=== PATIENT | male | born 1955 | race Caucasian/White ===

== ENCOUNTER 2016-09-28 23:32 | Observation (INO) | payer OTHER ==
[2016-09-28] MEDS ORDERED: IPRATROPIUM/ALBUTEROL SULFATE 3 ML NEB NEB ONE ×2 (23:40→23:54)
[2016-09-28] MEDS ORDERED: NORMAL SALINE 10 ML SYRINGE FLUSH IVP PRN (23:51)
[2016-09-28] MEDS ORDERED: Sodium Chloride 0.9% 1,000 ML PRIMARY IV ONE (23:51)
[2016-09-28] MEDS ORDERED: methylPREDNISolone Succ Inj 250 MG in Sodium Chloride 0.9% 100 ML IV ONE (23:53)
[2016-09-28] MEDS ORDERED: LEVALBUTEROL HCL 1.25 MG/3 ML NEB ONE (23:53)
[2016-09-29] MEDS ORDERED: methylPREDNISolone 125 MG/2 ML VIAL ONE (00:06)
[2016-09-29] MEDS ORDERED: Sodium Chloride 0.9% 100 ML IV ONE (00:07)
[2016-09-29 00:19] LABS: BASOPHILS # (AUTO) 0.08 10*3/UL; EOSINOPHILS % (AUTO) 2.9 % (0-8); HEMATOCRIT 42.1 % (42.0-52.0); HEMOGLOBIN 14.3 g/dL (14.0-18.0); IMM GRAN % (AUTO) 1.6 % (0-5); IMM GRAN# (AUTO) 0.13 10*3/UL; LYMPHOCYTES # (AUTO) 1.14 10*3/uL; LYMPHOCYTES % (AUTO) 14.3 % (10-50); MEAN CORPUSCULAR HEMOGLOBIN 28.3 PG (27-31); MEAN PLATELET VOLUME 10.5 FL (7.4-12.2); MONOCYTES # (AUTO) 0.94 10*3/UL (0.3-0.8); MONOCYTES % (AUTO) 11.8 % (5-15); NEUTROPHILS # (AUTO) 5.44 10*3/UL; NEUTROPHILS % (AUTO) 68.4 % (50-80); PLATELET MORPHOLOGY COMMENT NORMAL MORPHOLOGY (NORM); RDW COEFFICIENT OF VARIATION 15.2 % (11.5-14.5); RED BLOOD COUNT 5.05 10^6/uL (4.70-6.10); WHITE BLOOD COUNT 7.96 10^3/uL (4.8-10.8)
[2016-09-29] MEDS ORDERED: methylPREDNISolone Succ Inj 250 MG in Sodium Chloride 0.9% 100 ML IV ONE (00:34)
[2016-09-29 00:37] LABS: ASPARTATE AMINO TRANSFERASE 28 IU/L (21-57); BILIRUBIN,TOTAL 0.6 mg/dL (0.3-1.2); BLOOD UREA NITROGEN 16 mg/dL (7-22); CALCIUM 9.8 mg/dL (8.7-10.7); CHLORIDE 90 meq/L (98-112); CREATININE 0.8 mg/dL (0.70-1.50); EST GLOMERULAR FILTRATION > 60 (>60 ml/min/1.73m(2)); GLUCOSE 103 mg/dL (78-110); POTASSIUM 3.8 meq/L (3.8-5.2); SODIUM 129 meq/L (135-145); TOTAL PROTEIN 7.4 g/dL (6.1-8.0)
[2016-09-29] MEDS ORDERED: IPRATROPIUM/ALBUTEROL SULFATE 3 ML NEB NEB PRN ×2 (00:59→01:45)
[2016-09-29] MEDS ORDERED: LORATADINE 10 MG TABLET PO SCH (01:05)
--- NOTE | 2016-09-29 01:07 | PDOC ---
History and Physical - History of Present Illness History of Present Illness: This very nice 61-year-old gentleman with past medical history significant for asthma and diabetes, morbid obesity he has not been feeling well over the last 2 or 3 days with a lot of postnasal drip which most likely exacerbated his asthma is now improved with the IV steroids to 1 nebs and inhalers he does have some pain in his right frontal sinus which I believe is where things started and I believe he has a acute sinusitis. 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 He needs a bypass surgery but has to lose some weight first according to cardiology Tobacco Use: Never Smoker Substance Use Type: None Alcohol Use: None Medication / Allergies Home Medications: Home Medications Medication Instructions Recorded Confirmed Type Allopurinol 1 tab PO QD tab 04/05/16 09/28/16 History Aspirin 81 mg PO DAILY tab 04/05/16 09/28/16 History Gemfibrozil 600 mg PO QD tab 04/05/16 09/28/16 History Hydrochlorothiazide 1 tab PO BID tab 04/05/16 09/28/16 History Insulin Glargine SoloStar Inj 100 unit BID 04/05/16 09/28/16 History [Lantus Solostar Inj] Lisinopril 1 tab PO DAILY tab 04/05/16 09/28/16 History Lovastatin 20 mg PO DAILY tab 04/05/16 09/28/16 History Metformin HCl 2 tab PO BID tab 04/05/16 09/28/16 History Metoprolol Tartrate 1 tab PO DAILY tab 04/05/16 09/28/16 History Sitagliptin Phosphate [Januvia] 1 tab PO DAILY tab 04/05/16 09/28/16 History Ciclopirox/Nail Lacquer Removr 1 each TOPICAL DAILY #1 box 06/20/16 09/28/16 Clinic [Cnl 8 Nail Kit] Allergies/Adverse Reactions: Allergies Allergy/AdvReac Type Severity Reaction Status Date / Time No Known Drug Allergies Allergy NOT Verified 09/29/16 06:28 APPLICABLE Review of Systems - Review of Systems All Systems: Reviewed & No Additional Complaints Except as Stated - Respiratory Respiratory: REPORTS: Cough, Wheezing - Cardiovascular Cardiovascular: DENIES: Negative System Review, Chest Pain, Edema, Syncope, Palpitations, Orthopnea, Paroxysmal Nocturnal Dyspnea, Other, See HPI - Gastrointestinal Gastrointestinal / Abdominal: DENIES: Negative System Review, Nausea, Vomiting, Diarrhea, Constipation, Abdominal Pain, Bloody Stool, Poor Appetite, Heartburn, Regurgitation, Bloating, Lactose Intolerance, Melena, Bright Red Blood Per Rectum, Other, See HPI - Genitourinary Genitourinary: DENIES: Negative System Review, Pain, Burning, Hematuria, Incontinence, Urgency, Hesitant Stream, Decreased Stream, Nocutria, Discharge, Sexual Dyfunction, Other, See HPI Exam - Vitals Vital Signs: Vital Signs Temperature 96.3 F Temperature Source Temporal Artery Scan Pulse Rate [Pulse Oximeter] 76 Respiratory Rate 22 Blood Pressure [Left Arm] 130/67 Pulse Ox 94 Oxygen Delivery Method Room Air Height 5 ft 11 in Weight 163.293 kg - General General Appearance: POSITIVE: No Acute Distress, Cooperative - Head Head Exam: POSITIVE: Normal Inspection, Normocephalic, Atraumatic - Respiratory Respiratory Exam: POSITIVE: Clear to Auscultation - Bilaterally, Decreased Breath Sounds - Cardiovascular Cardiovascular Exam: POSITIVE: RRR, No Murmur, No Clicks - GI/Abdominal GI/Abdominal Exam: POSITIVE: Normal Bowel Sounds, Non Distended, Soft - Extremities Extremities Exam: POSITIVE: No Clubbing Present, No Edema Present - Neurological Neurological Exam: POSITIVE: Alert, Oriented x 3, CN II-XII Intact, No Facial Droop, Speech Intact / Clear - Psychiatric Psychiatric Exam: POSITIVE: Normal Affect, Normal Mood Results - Labs CBC and BMP: 09/29/16 11:15 09/29/16 11:15 Labs - Last 24 Hours: Laboratory Results 09/29/16 Range/Units 00:10 WBC 7.96 (4.8-10.8) 10^3/uL RBC 5.05 (4.70-6.10) 10^6/uL Hgb 14.3 (14.0-18.0) g/dL Hct 42.1 (42.0-52.0) % MCV 83.4 (80-90) FL MCH 28.3 (27-31) PG MCHC 34.0 (33-37) g/dL RDW Std Deviation 46.0 (39-50) fL RDW Coeff of [place] 15.2 H (11.5-14.5) % Plt Count 224 (140-350) 10*3/uL MPV 10.5 (7.4-12.2) FL Immature Gran % (Auto) 1.6 (0-5) % Neut % (Auto) 68.4 (50-80) % Lymph % (Auto) 14.3 (10-50) % Piatt % (Auto) 11.8 (5-15) % Eos % (Auto) 2.9 (0-8) % Baso % (Auto) 1.0 (0-1) % Immature Gran # (Auto) 0.13 10*3/UL Neut # (Auto) 5.44 10*3/UL Lymph # (Auto) 1.14 10*3/uL Piatt # (Auto) 0.94 H (0.3-0.8) 10*3/UL Eos # (Auto) 0.23 10*3/UL Baso # (Auto) 0.08 10*3/UL WBC Morphology Comment Normal morphology (NORM) Plt Morphology Comment Normal morphology (NORM) RBC Morph Comment Normal morphology (NORM) D-Dimer 0.53 (0.00-0.59) mg/L Sodium 129 L (135-145) meq/L Potassium 3.8 (3.8-5.2) meq/L Chloride 90 L (98-112) meq/L Carbon Dioxide 24 (23-33) meq/L Anion Gap 15 (5-20) BUN 16 (7-22) mg/dL Creatinine 0.8 (0.70-1.50) mg/dL Estimated GFR > 60 (>60 ml/min/1.73m(2)) BUN/Creatinine Ratio 20.00 (6-20) Glucose 103 (78-110) mg/dL Calculated Osmolality 268.0 (267-292) mOsm/kg Calcium 9.8 (8.7-10.7) mg/dL Total Bilirubin 0.6 (0.3-1.2) mg/dL AST 28 (21-57) IU/L ALT 40 (21-72) IU/L Alkaline Phosphatase 83 (38-126) IU/L NT-Pro-B Natriuret Pep 255 H (0-125) PG/ML Total Protein 7.4 (6.1-8.0) g/dL Albumin 4.4 (3.5-4.8) g/dL Globulin 3.0 (2.50-4.10) g/dL Albumin/Globulin Ratio 1.40 (1.3-2.0) mg/g Assessment and Plan - Patient Problems (1) Asthma exacerbation Current Visit: Yes Status: Acute Comment: Patient has already received to 50 of Solu-Medrol and 2 DuoNeb treatments improving according to ER doc will be admitted for further observation I will add Advair 2 5050, loratadine 10 mg, methylprednisolone 60 IV every 6 (2) Diabetes Current Visit: Yes Status: Acute Comment: Continue metformin and Januvia (3) Hyponatremia Current Visit: Yes Status: Acute Comment: Operative record thiazide hydrate with normal saline with 20 of K at 125 an hour (4) Obesity Current Visit: Yes Status: Acute Comment: Low-carb diet (5) Hypertension Current Visit: Yes Status: Acute Comment: Continue usual medication
[2016-09-29 01:09] LABS: VENOUS HCO3 25.9 mmol/L (22-26)
[2016-09-29] MEDS ORDERED: methylPREDNISolone 125 MG/2 ML VIAL IVP SCH (01:15)
[2016-09-29] MEDS ORDERED: HEPARIN 5000 UNIT/1 ML SUBCUT SCH (02:00)
[2016-09-29] MEDS ORDERED: NORMAL SALINE 10 ML SYRINGE FLUSH IVP PRN ×2 (02:01→02:04)
[2016-09-29] MEDS ORDERED: ALBUTEROL SULFATE 5 MG/ML-20 ML BOTTLE NEB PRN (02:10)
[2016-09-29] MEDS ORDERED: diphenhydrAMINE 25 MG CAPSULE PO ONE (02:11)
[2016-09-29] MEDS: BENZONATATE 200 MG CAPSULE PO PRN ×3 (02:36→21:28)
[2016-09-29] MEDS: GUAIFENESIN/CODEINE SYRUP 100 MG/ 10 MG/ 5 ML UD CUP PO PRN ×3 (03:49→16:31)
[2016-09-29] MEDS: methylPREDNISolone 125 MG/2 ML VIAL IVP SCH ×3 (05:39→17:00)
--- NOTE | 2016-09-29 05:54 | PDOC ---
Dyspnea HPI - General Chief Complaint: Cough / URI Stated Complaint: Cough/Wheeze Date Seen by Provider: 09/28/16 Time Seen by Provider: 23:35 Source: POSITIVE: Patient Exam Limitations: POSITIVE: No limitations Treatment Prior to Arrival: REPORTS: Other (Albuterol MDI) Nurse's Notes Reviewed & Considered: Yes - History of Present Illness Initial Comments: The patient is a 61 year old male. He presents to the emergency room complaining of cough and wheezing this evening. He states that he has a history of asthma. He states he has had a 2-3 day history of URI symptoms, including minimally productive cough and postnasal discharge. Patient states he has a history of coronary artery disease, morbid obesity, asthma and insulin- dependent diabetes mellitus, for which he takes Lantus. He uses a Proair inhaler on a when necessary basis. No fevers or chills. No chest pain. He states he has been advised to have a coronary artery bypass after he loses 30 pounds. His present weight is 360 pounds. Body Location Affected: REPORTS: Chest Timing: REPORTS: Gradual, Getting Worse Duration: >24 hours (2 days) Severity: Moderate Quality: REPORTS: Other (Patient denies any pain anywhere) Initiating Event: REPORTS: Upper Respiratory Illness Context: REPORTS: Exertion Exacerbated By: REPORTS: Exertion, Coughing Associated Symptoms: DENIES: Fever, Chills, Sweating, Chest Pain, Chest Discomfort, Left Chest, Right Chest, Central Chest, Chest Heaviness, Chest Tightness, Painful Breathing, Radiation to Back, Radiation to Jaw, Radiation to Arm, Bloody Cough, Productive Cough, Heart Racing, Leg Pain, Calf Pain, Ankle Swelling, Leg Swelling, Dizziness, Light-Headedness, Anxiety, Tingling - Hands, Tingling - Face, Muscle Spasms - Hands, Muscle Spasms - Feet Similar Symptoms Previously: Yes Recently seen/treated/hospitalized: No Any Prior Injuries Related to Current Complaint?: No - Patient Home Medications Home Medications: Home Medications Allopurinol 1 tab PO QD tab 04/05/16 Aspirin 81 mg PO DAILY tab 04/05/16 Gemfibrozil 600 mg PO QD tab 04/05/16 Hydrochlorothiazide 1 tab PO BID tab 04/05/16 Insulin Glargine SoloStar Inj [Lantus Solostar Inj] 100 unit BID 04/05/16 Lisinopril 1 tab PO DAILY tab 04/05/16 Lovastatin 20 mg PO DAILY tab 04/05/16 Metformin HCl 2 tab PO BID tab 04/05/16 Metoprolol Tartrate 1 tab PO DAILY tab 04/05/16 Sitagliptin Phosphate [Januvia] 1 tab PO DAILY tab 04/05/16 Ciclopirox/Nail Lacquer Removr [Cnl 8 Nail Kit] 1 each TOPICAL DAILY #1 box 10/31 - Patient Allergies Allergies/Adverse Reactions: Allergies Allergy/AdvReac Type Severity Reaction Status Date / Time No Known Drug Allergies Allergy NOT Verified 09/29/16 01:46 APPLICABLE Past Medical History - heen HEENT History: Denies History Cardiovascular History: Hypertension, Other (please comment) Additional Cardiovasular History: HEART BLOCKABLE, WANT TO DO SURGERY BUT NEEDS TO LOSE 30 POUNDS. Respiratory History: Asthma Gastrointestinal History: Denies History Genitourinary History: Denies History Endocrine History: Denies History Musculoskeletal History: Denies History Neurological History: Denies History Blood Disorders: Denies History Psychiatric History: Denies History Male Reproductive History: Denies History Cancer History: Denies History In Past Year Been Physically Harmed or Verbally Threatened: No History of MDRO: Yes Type of MDRO: MRSA Tobacco Use: Never Smoker Alcohol Use: None Substance Use Type: None Previous Surgical History: No Type / Date of Surgery: APPENDIX. EXPLORATORY TESTICLES Significant Family History: No pertinent family hx Past Medical History Reviewed: Reviewed - No Changes ROS - Limitations ROS Limitations: No Limitations Constitution: REPORTS: Denies Symptoms Cardiovascular: REPORTS: Denies Cardiac Symptoms Respiratory: REPORTS: Cough Non Productive, Shortness Of Breath, Wheezing Neurological: REPORTS: Denies Neuro Symptoms Gastrointestinal: REPORTS: Denies GI Symptoms Endocrine: REPORTS: Denies Symptoms Musculoskeletal: REPORTS: Denies MS Symptoms Genitourinary: REPORTS: Denies Symptoms Eyes: REPORTS: Denies Symptoms ENT: REPORTS: Denies Symptoms Skin: REPORTS: Denies Skin Symptoms Lympathic: REPORTS: Denies Lympathic Symptoms Immunologic: POSITIVE: Denies Symptoms Psychiatric: POSITIVE: Denies Psych Symptoms Dyspnea Physical Exam - General Appearance General Appearance: REPORTS: Alert, Cooperative, No Evidence of Trauma, Moderate Distress (Due to wheezing and dyspnea), Other (Morbidly obese) - HEENT HEENT: POSITIVE: Head Inspection Nml, Eyes Inspection Nml, Ears Inspection Nml, Nose Inspection Nml, Oral/Dental Inspect. Nml, Pharynx Inspect. Nml, PERRL, EOMI - Neck Neck: REPORTS: Normal Inspection, No Carotid Bruit - Respiratory Respiratory: REPORTS: No Pleuritic Chest Pain, Speaks Full Sentences, No Pain on Inspiration, Wheezes, Prolonged Expirations. DENIES: Breath Sounds Normal ( Diffuse wheezing), Respiratory Distress (Moderate), Fatigue, Rales, Rhonchi, Accessory Muscle Use, Retractions, Splinting, Dull on Percussion, Decreased Air Movement, Chest Wall Tenderness, Speaks Broken Sentences, Stridor, Respiratory Failure - Cardiovascular Cardiovascular: REPORTS: Regular Rate and Rhythm, Heart Sounds Normal, Equal Pulses, Strong Pulses, No Murmur, No Gallop, No Friction Rub, No JVD Peripheral Pulses: Radial (R): 2+, Radial (L): 2+ - Abdomen Abdomen: Soft: (All Quadrants), Normal Bowel Sounds: (All Quadrants), Denies Tenderness: (All Quadrants), No Splenomegaly: (All Quadrants), No Hepatomegaly: (All Quadrants), No Guarding: (All Quadrants), No Rebound: (All Quadrants), No Palpable Pulse: (All Quadrants), No Palpabale Mass: (All Quadrants), No Distention: (All Quadrants), No Rigidity: (All Quadrants) - Skin Skin: REPORTS: Intact, Normal For Race, Warm, Dry, No Rash - Extremities Extremity: Non-Tender: (All Extremities), Normal ROM: (All Extremities), Normal Inspection: (All Extremities) - Neurological / Psychological Neurological: POSITIVE: Oriented X3, veneer taper Normal As Tested, Motor Normal, Sensation Normal, 5, 6 Dyspnea Progress - Results Reviewed by me Xrays/CTs/US Reviewed by me: Yes Discussed with Radiologist: No Radiology Findings: No cardiomegaly or definite infiltrates seen by me Lab Results Reviewed: Yes Lab Results:: Laboratory Results 09/28/16 09/29/16 Range/Units 23:54 00:10 WBC 7.96 (4.8-10.8) 10^3/uL RBC 5.05 (4.70-6.10) 10^6/uL Hgb 14.3 (14.0-18.0) g/dL Hct 42.1 (42.0-52.0) % MCV 83.4 (80-90) FL MCH 28.3 (27-31) PG MCHC 34.0 (33-37) g/dL RDW Std Deviation 46.0 (39-50) fL RDW Coeff of [place] 15.2 H (11.5-14.5) % Plt Count 224 (140-350) 10*3/uL MPV 10.5 (7.4-12.2) FL Immature Gran % (Auto) 1.6 (0-5) % Neut % (Auto) 68.4 (50-80) % Lymph % (Auto) 14.3 (10-50) % Hawkins % (Auto) 11.8 (5-15) % Eos % (Auto) 2.9 (0-8) % Baso % (Auto) 1.0 (0-1) % Immature Gran # (Auto) 0.13 10*3/UL Neut # (Auto) 5.44 10*3/UL Lymph # (Auto) 1.14 10*3/uL Hawkins # (Auto) 0.94 H (0.3-0.8) 10*3/UL Eos # (Auto) 0.23 10*3/UL Baso # (Auto) 0.08 10*3/UL WBC Morphology Comment Normal morphology (NORM) Plt Morphology Comment Normal morphology (NORM) RBC Morph Comment Normal morphology (NORM) D-Dimer 0.53 (0.00-0.59) mg/L VBG pH 7.45 H (7.32-7.42) VBG pCO2 36.8 L (45-55) mmHg VBG HCO3 25.9 (22-26) mmol/L VBG Base Excess 2 (-2-2) MMOL/L Sodium 129 L (135-145) meq/L Potassium 3.8 (3.8-5.2) meq/L Chloride 90 L (98-112) meq/L Carbon Dioxide 24 (23-33) meq/L Anion Gap 15 (5-20) BUN 16 (7-22) mg/dL Creatinine 0.8 (0.70-1.50) mg/dL Estimated GFR > 60 (>60 ml/min/1.73m(2)) BUN/Creatinine Ratio 20.00 (6-20) Glucose 103 (78-110) mg/dL Calculated Osmolality 268.0 (267-292) mOsm/kg Calcium 9.8 (8.7-10.7) mg/dL Total Bilirubin 0.6 (0.3-1.2) mg/dL AST 28 (21-57) IU/L ALT 40 (21-72) IU/L Alkaline Phosphatase 83 (38-126) IU/L NT-Pro-B Natriuret Pep 255 H (0-125) PG/ML Total Protein 7.4 (6.1-8.0) g/dL Albumin 4.4 (3.5-4.8) g/dL Globulin 3.0 (2.50-4.10) g/dL Albumin/Globulin Ratio 1.40 (1.3-2.0) mg/g EKG Interpreted/Reviewed By Me:: Yes (normal) EKG Interpretation:: POSITIVE: Normal Sinus Rhythm, Normal Rate, Normal Intervals, Normal Warrior, Normal QRS, Normal ST/T - Patient's Progress Pain Medication Addressed: POSITIVE: Not Applicable School/Work Release Addressed: POSITIVE: Not Applicable Re-Examine Time: 00:00 Re-Examine Comment: Patient given DuoNeb nebulizer treatment with some improvement. Oxygen saturation 94% on 3 L of oxygen by nasal cannula Re-Examine Time:: 00:50 Re-Examine Comment: Patient given 250 mg of Solu-Medrol IV and another 2 Xopenex treatments. Wheezing much less and patient maintaining oxygen saturations well. Patient feels better. Case discussed with Dr. Soot, hospitalist. Status: POSITIVE: Improved, Re-Examined Air Movement: POSITIVE: Fair - Consult Consult (If Yes, Name of Consulting MD & Time Called): Yes (Dr. Escobar, hospitalist, [id number]) Consulting MD will see pt:: POSITIVE: [facility] [place] Admit Counseled: POSITIVE: Patient, RE: Lab Results, RE: Radiology Results, RE: DX, RE : Need for F/U Patient Care Time - Estimated PCT Patient Care Time (In Minutes): 40 Vital Signs - Recent Vital Signs Vital Signs: Vital Signs (Last 8 hours) Temp Pulse Pulse Resp BP BP Pulse Ox 09/29/16 03:34 93 09/29/16 03:06 71 96 09/29/16 02:47 97.1 F 73 20 149/84 97 09/29/16 01:46 22 09/29/16 01:35 97.0 F 70 22 117/59 96 09/29/16 01:20 94 09/28/16 23:32 96.3 F L 76 22 130/67 94 - VS Reviewed Vital Signs Reviewed: Yes Discharge Clinical Impression: Asthma, Diabetes Discharge Disposition: Admit to Inpatient Condition: Stable Date Decision to Admit to Inpatient: 09/29/16 Time Decision to Admit to Inpatient: 00:50
[2016-09-29] MEDS ORDERED: FLUTICASONE/SALMETEROL 250/50 UD INHALER INH SCH (07:00)
[2016-09-29] MEDS: IPRATROPIUM/ALBUTEROL SULFATE 3 ML NEB NEB SCH ×3 (07:10→19:11)
[2016-09-29] MEDS: metFORMIN 500 MG TABLET PO SCH ×2 (07:19→16:31)
[2016-09-29] MEDS: FLUTICASONE/SALMETEROL 250/50 UD INHALER INH SCH ×2 (07:26→19:14)
[2016-09-29] MEDS: ASPIRIN 81 MG (BABY) CHEWABLE TABLET PO SCH (09:00)
[2016-09-29] MEDS: LISINOPRIL 10 MG TABLET PO SCH (09:00)
[2016-09-29] MEDS: LORATADINE 10 MG TABLET PO SCH (09:00)
[2016-09-29] MEDS: ALLOPURINOL 300 MG TABLET PO SCH (09:00)
[2016-09-29] MEDS ORDERED: PNEUMOCOCCAL 23 VACCINE 25 MCG/0.5 ML VIAL IM SCH (09:00)
[2016-09-29] MEDS: HEPARIN 5000 UNIT/1 ML SUBCUT SCH ×2 (09:00→16:32)
[2016-09-29] MEDS: sitaGLIPtin Tab 100 MG TAB PO SCH (09:00)
[2016-09-29] MEDS: LOVASTATIN 20 MG PO SCH (09:06)
[2016-09-29 11:42] LABS: BASOPHILS # (AUTO) 0.01 10*3/UL; BASOPHILS % (AUTO) 0.2 % (0-1); EOSINOPHILS % (AUTO) 0.2 % (0-8); HEMATOCRIT 39.5 % (42.0-52.0); HEMOGLOBIN 13.6 g/dL (14.0-18.0); IMM GRAN# (AUTO) 0.06 10*3/UL; LYMPHOCYTES # (AUTO) 0.56 10*3/uL; MEAN CORPUSCULAR HEMOGLOBIN 28.5 PG (27-31); MEAN CORPUSCULAR HGB CONC 34.4 g/dL (33-37); MEAN PLATELET VOLUME 10.8 FL (7.4-12.2); MONOCYTES # (AUTO) 0.11 10*3/UL (0.3-0.8); MONOCYTES % (AUTO) 1.8 % (5-15); NEUTROPHILS # (AUTO) 5.44 10*3/UL; NEUTROPHILS % (AUTO) 87.8 % (50-80); RDW COEFFICIENT OF VARIATION 14.9 % (11.5-14.5); RED BLOOD COUNT 4.78 10^6/uL (4.70-6.10); WHITE BLOOD COUNT 6.19 10^3/uL (4.8-10.8)
[2016-09-29 11:55] LABS: ASPARTATE AMINO TRANSFERASE 25 IU/L (21-57); BILIRUBIN,TOTAL 0.3 mg/dL (0.3-1.2); BLOOD UREA NITROGEN 14 mg/dL (7-22); CALCIUM 9.1 mg/dL (8.7-10.7); CHLORIDE 91 meq/L (98-112); CREATININE 0.7 mg/dL (0.70-1.50); EST GLOMERULAR FILTRATION > 60 (>60 ml/min/1.73m(2)); GLUCOSE 240 mg/dL (78-110); MAGNESIUM 1.7 mg/dL (1.6-2.4); POTASSIUM 3.7 meq/L (3.8-5.2); SODIUM 128 meq/L (135-145)
[2016-09-29 12:10] LABS: PLATELET MORPHOLOGY COMMENT NORMAL MORPHOLOGY (NORM)
[2016-09-29] MEDS ORDERED: Metoprolol TARTRATE Tab 50 MG TAB PO SCH (12:30)
[2016-09-29] MEDS: Levofloxacin 750mg (Premix) 750 MG in Dextrose 1 BAG IV SCH (13:21)
--- NOTE | 2016-09-29 13:30 | EKG ---
[address] [address] Measurements Intervals [place] Rate: 69 P: 267 MO: 192 QRS: 30 QRSD: 78 T: 43 QT: 384 QTc: 402 Interpretive Statements SINUS RHYTHM No previous ECG available for comparison Electronically Signed On 09-30-16 16:08:31 [facility] by Arnaldo Mason [email or web address]
--- NOTE | 2016-09-29 15:18 | EKG ---
[address] [address] Measurements Intervals [place] Rate: 85 P: [place]: 0 QRS: 48 QRSD: 92 T: 50 QT: 393 QTc: 435 Interpretive Statements SINUS RHYTHM NORMAL ECG Electronically Signed On 09-30-16 16:06:08 [facility] by Arnaldo Mason [email or web address]
[2016-09-29] MEDS: LORazepam 2 MG/1 ML VIAL IVP PRN ×4 (16:31→23:59)
[2016-09-29] MEDS ORDERED: Zolpidem Tab 5 MG TAB PO PRN (19:37)
[2016-09-29] MEDS ORDERED: Insulin Glargine SoloStar Inj 100 UNIT/ML INSULN.PEN SUBCUT SCH (21:00)
[2016-09-29] MEDS: Metoprolol TARTRATE Tab 50 MG TAB PO SCH (21:28)
[2016-09-29] MEDS ORDERED: GABAPENTIN 100 MG CAPSULE PO SCH (21:30)
[2016-09-29] MEDS ORDERED: ALBUTEROL SULFATE 2.5 MG/3 ML NEB PRN (22:24)
[2016-09-29] MEDS ORDERED: ALBUTEROL SULFATE 2.5 MG/3 ML NEB ONE (22:30)
[2016-09-30] MEDS: methylPREDNISolone 125 MG/2 ML VIAL IVP SCH ×2 (00:30→05:49)
[2016-09-30] MEDS: HEPARIN 5000 UNIT/1 ML SUBCUT SCH ×3 (00:30→16:55)
[2016-09-30] MEDS: IPRATROPIUM/ALBUTEROL SULFATE 3 ML NEB NEB SCH ×4 (01:46→18:45)
[2016-09-30] MEDS: ASPIRIN 81 MG (BABY) CHEWABLE TABLET PO SCH (07:23)
[2016-09-30] MEDS: metFORMIN 500 MG TABLET PO SCH (07:23)
[2016-09-30 07:47] VITALS: RESP 20
[2016-09-30] MEDS: FLUTICASONE/SALMETEROL 250/50 UD INHALER INH SCH ×2 (07:52→18:45)
[2016-09-30] MEDS: LISINOPRIL 10 MG TABLET PO SCH (08:20)
[2016-09-30] MEDS: Metoprolol TARTRATE Tab 50 MG TAB PO SCH (08:20)
[2016-09-30] MEDS: sitaGLIPtin Tab 100 MG TAB PO SCH (08:20)
[2016-09-30] MEDS: ALLOPURINOL 300 MG TABLET PO SCH (08:20)
[2016-09-30] MEDS: Levofloxacin 750mg (Premix) 750 MG in Dextrose 1 BAG IV SCH (08:21)
[2016-09-30] MEDS: LORATADINE 10 MG TABLET PO SCH (08:21)
--- NOTE | 2016-09-30 08:26 | DI ---
XR CXR 2VW PA/LAT,09/28/2016 11:54 PM: Clinical History: Cough and dyspnea Previous Exam: None at this facility. Findings: PA and lateral views of the chest are obtained, and demonstrate mild flattening of the hemidiaphragms bilaterally consistent with COPD. There is no fracture. There is a normal cardiac shadow. Impression: No acute disease.
[2016-09-30] MEDS ORDERED: FUROSEMIDE 10 MG/1 ML - 4 ML IVP ONE (08:56)
[2016-09-30] MEDS ORDERED: predniSONE Tab 20 MG TAB PO SCH (09:00)
[2016-09-30] MEDS ORDERED: Levofloxacin 750mg (Premix) 750 MG in Dextrose 1 BAG IV SCH (09:00)
[2016-09-30] MEDS ORDERED: predniSONE Tab 10 MG, predniSONE Tab 20 MG PO SCH ×2 (09:15)
[2016-09-30] MEDS: LOVASTATIN 20 MG PO SCH (09:55)
[2016-09-30 10:58] LABS: BASOPHILS # (AUTO) 0.02 10*3/UL; BASOPHILS % (AUTO) 0.1 % (0-1); EOSINOPHILS % (AUTO) 0.1 % (0-8); HEMOGLOBIN 13.6 g/dL (14.0-18.0); IMM GRAN % (AUTO) 0.8 % (0-5); IMM GRAN# (AUTO) 0.11 10*3/UL; LYMPHOCYTES # (AUTO) 0.83 10*3/uL; MEAN CORPUSCULAR HEMOGLOBIN 28.5 PG (27-31); MEAN PLATELET VOLUME 10.3 FL (7.4-12.2); MONOCYTES # (AUTO) 0.65 10*3/UL (0.3-0.8); MONOCYTES % (AUTO) 4.7 % (5-15); NEUTROPHILS # (AUTO) 12.26 10*3/UL; NEUTROPHILS % (AUTO) 88.3 % (50-80); RED BLOOD COUNT 4.77 10^6/uL (4.70-6.10); WHITE BLOOD COUNT 13.88 10^3/uL (4.8-10.8)
[2016-09-30 11:03] LABS: PLATELET MORPHOLOGY COMMENT NORMAL MORPHOLOGY (NORM)
[2016-09-30 11:17] LABS: ASPARTATE AMINO TRANSFERASE 33 IU/L (21-57); BILIRUBIN,TOTAL 0.3 mg/dL (0.3-1.2); BLOOD UREA NITROGEN 18 mg/dL (7-22); BUN/CREATININE RATIO 25.71 (6-20); CHLORIDE 94 meq/L (98-112); CREATININE 0.7 mg/dL (0.70-1.50); EST GLOMERULAR FILTRATION > 60 (>60 ml/min/1.73m(2)); GLUCOSE 321 mg/dL (78-110); SODIUM 130 meq/L (135-145); TOTAL PROTEIN 7.2 g/dL (6.1-8.0)
--- NOTE | 2016-09-30 12:35 | DCSUMMARY ---
Hospitalization Summary Hospital Course: Final Discharge Diagnosis: Current Visit Problems Problem Status Priority Diagnosed Code Asthma Acute J45.909 Asthma exacerbation Acute J45.901 Diabetes Acute E11.9 Hypertension Acute I10 Hyponatremia Acute E87.1 Obesity Acute E66.9 Diagnostic Data, Laboratory Data, and Procedures of Signifigance: Laboratory Results 09/28/16 09/29/16 09/29/16 Range/Units 23:54 00:10 11:15 WBC 7.96 6.19 (4.8-10.8) 10^3/uL RBC 5.05 4.78 (4.70-6.10) 10^6/uL Hgb 14.3 13.6 L (14.0-18.0) g/dL Hct 42.1 39.5 L (42.0-52.0) % MCV 83.4 82.6 (80-90) FL MCH 28.3 28.5 (27-31) PG MCHC 34.0 34.4 (33-37) g/dL RDW Std Deviation 46.0 44.6 (39-50) fL RDW Coeff of [place] 15.2 H 14.9 H (11.5-14.5) % Plt Count 224 213 (140-350) 10*3/uL MPV 10.5 10.8 (7.4-12.2) FL Immature Gran % (Auto) 1.6 1.0 (0-5) % Neut % (Auto) 68.4 87.8 H (50-80) % Lymph % (Auto) 14.3 9.0 L (10-50) % [place] % (Auto) 11.8 1.8 L (5-15) % Eos % (Auto) 2.9 0.2 (0-8) % Baso % (Auto) 1.0 0.2 (0-1) % Immature Gran # (Auto) 0.13 0.06 10*3/UL Neut # (Auto) 5.44 5.44 10*3/UL Lymph # (Auto) 1.14 0.56 10*3/uL [place] # (Auto) 0.94 H 0.11 L (0.3-0.8) 10*3/UL Eos # (Auto) 0.23 0.01 10*3/UL Baso # (Auto) 0.08 0.01 10*3/UL WBC Morphology Comment Normal morphology Normal morphology (NORM) Plt Morphology Comment Normal morphology Normal morphology (NORM) RBC Morph Comment Normal morphology Normal morphology (NORM) D-Dimer 0.53 (0.00-0.59) mg/L VBG pH 7.45 H (7.32-7.42) VBG pCO2 36.8 L (45-55) mmHg VBG HCO3 25.9 (22-26) mmol/L VBG Base Excess 2 (-2-2) MMOL/L Sodium 129 L 128 L (135-145) meq/L Potassium 3.8 3.7 L (3.8-5.2) meq/L Chloride 90 L 91 L (98-112) meq/L Carbon Dioxide 24 23 (23-33) meq/L Anion Gap 15 14 (5-20) BUN 16 14 (7-22) mg/dL Creatinine 0.8 0.7 (0.70-1.50) mg/dL Estimated GFR > 60 > 60 (>60 ml/min/1.73m(2)) BUN/Creatinine Ratio 20.00 20.00 (6-20) Glucose 103 240 H (78-110) mg/dL Calculated Osmolality 268.0 274.0 (267-292) mOsm/kg Calcium 9.8 9.1 (8.7-10.7) mg/dL Magnesium 1.7 (1.6-2.4) mg/dL Total Bilirubin 0.6 0.3 (0.3-1.2) mg/dL AST 28 25 (21-57) IU/L ALT 40 38 (21-72) IU/L Alkaline Phosphatase 83 76 (38-126) IU/L Troponin I (< 0.040) ng/mL NT-Pro-B Natriuret Pep 255 H (0-125) PG/ML Total Protein 7.4 7.0 (6.1-8.0) g/dL Albumin 4.4 4.1 (3.5-4.8) g/dL Globulin 3.0 2.9 (2.50-4.10) g/dL Albumin/Globulin Ratio 1.40 1.40 (1.3-2.0) mg/g 09/29/16 09/30/16 Range/Units 14:00 10:00 WBC 13.88 H (4.8-10.8) 10^3/uL RBC 4.77 (4.70-6.10) 10^6/uL Hgb 13.6 L (14.0-18.0) g/dL Hct 40.0 L (42.0-52.0) % MCV 83.9 (80-90) FL MCH 28.5 (27-31) PG MCHC 34.0 (33-37) g/dL RDW Std Deviation 45.4 (39-50) fL RDW Coeff of [place] 15.0 H (11.5-14.5) % Plt Count 263 (140-350) 10*3/uL MPV 10.3 (7.4-12.2) FL Immature Gran % (Auto) 0.8 (0-5) % Neut % (Auto) 88.3 H (50-80) % Lymph % (Auto) 6.0 L (10-50) % [place] % (Auto) 4.7 L (5-15) % Eos % (Auto) 0.1 (0-8) % Baso % (Auto) 0.1 (0-1) % Immature Gran # (Auto) 0.11 10*3/UL Neut # (Auto) 12.26 10*3/UL Lymph # (Auto) 0.83 10*3/uL [place] # (Auto) 0.65 (0.3-0.8) 10*3/UL Eos # (Auto) 0.01 10*3/UL Baso # (Auto) 0.02 10*3/UL WBC Morphology Comment Normal morphology (NORM) Plt Morphology Comment Normal morphology (NORM) RBC Morph Comment Normal morphology (NORM) D-Dimer (0.00-0.59) mg/L VBG pH (7.32-7.42) VBG pCO2 (45-55) mmHg VBG HCO3 (22-26) mmol/L VBG Base Excess (-2-2) MMOL/L Sodium 130 L (135-145) meq/L Potassium 4.0 (3.8-5.2) meq/L Chloride 94 L (98-112) meq/L Carbon Dioxide 19 L (23-33) meq/L Anion Gap 17 (5-20) BUN 18 (7-22) mg/dL Creatinine 0.7 (0.70-1.50) mg/dL Estimated GFR > 60 (>60 ml/min/1.73m(2)) BUN/Creatinine Ratio 25.71 H (6-20) Glucose 321 H (78-110) mg/dL Calculated Osmolality 283.0 (267-292) mOsm/kg Calcium 9.0 (8.7-10.7) mg/dL Magnesium (1.6-2.4) mg/dL Total Bilirubin 0.3 (0.3-1.2) mg/dL AST 33 (21-57) IU/L ALT 25 (21-72) IU/L Alkaline Phosphatase 67 (38-126) IU/L Troponin I < 0.012 (< 0.040) ng/mL NT-Pro-B Natriuret Pep (0-125) PG/ML Total Protein 7.2 (6.1-8.0) g/dL Albumin 4.2 (3.5-4.8) g/dL Globulin 3.0 (2.50-4.10) g/dL Albumin/Globulin Ratio 1.40 (1.3-2.0) mg/g History and Physical pertinent to Admission: Course of Hospitalization: This very nice 61-year-old gentleman who was seen in the ER for asthma exacerbation and subsequently admitted the because his wheezings was not totally resolved in the ER. After further evaluation the patient did not have any pneumonia and was found to have a sinus infection on physical exam on his met right maxillary most likely this was causing the postnasal drip which she confirmed over the 2-3 days before coming into the ER which most likely triggered his asthma exacerbation this resolved with the respiratory treatments and steroids is also being treated with 750 levofloxacin for a sinus infection patient overall is improved from the acute issues that he was admitted for that he has other multiple other comorbidities including diabetes coronary artery disease he stated that the cardiology and told him he needs bypass but needs to lose about 30 pounds before he does have surgery. 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 He will be finishing a short tapering dose of steroids and a 5 day he more course of by mouth Levaquin patient understands and agrees. His white count and most likely is from steroids . I told the patient that his sugars might be up a little he might had to adjust may be a few more units of insulin he said he has done this before and he knows how to do it. I also called Zen[facility] Saavedra to arrange for home health since social service is not here today they are working on this On the date of discharge, the patient was examined: Gen.: [No acute distress, alert, nontoxic] Heart: [Regular rate and rhythm, no murmurs, clicks, gallops, or rubs] Lungs: [Clear to auscultation bilaterally, breathing is nonlabored] Abdomen/GI: [Normal tones on auscultation, soft, nontender, nondistended] Musculoskeletal/extremities: [No clubbing, cyanosis, or edema] Vitals reviewed and are listed below Vital Signs (24 hrs) Temp Pulse Pulse Resp BP Pulse Ox 09/30/16 07:44 90 20 143/57 96 09/30/16 07:00 20 92 09/30/16 05:00 83 24 172/86 93 09/30/16 03:00 88 96 09/30/16 01:00 97.7 F 85 24 158/71 94 09/29/16 23:00 84 93 09/29/16 21:00 97.1 F 77 24 154/69 92 09/29/16 19:00 77 95 09/29/16 16:20 97.2 F 77 19 141/66 93 09/29/16 15:11 97 09/29/16 15:00 81 96 Assessment and Plan: 1. As per discharge assessments above 2. Disposition: 3. Condition on discharge, stable and improved. 4. Diet: Low-carb diet 5. Activities: resume normal activities 6. Follow-Up: 1. [PCP] Dr. Cruz October 03 at 10 AM appointment was made for him 2. 7. Medications at the Time of Discharge: Home Medications Medication Instructions Recorded Confirmed Type Allopurinol 1 tab PO QD tab 04/05/16 09/28/16 History Aspirin 81 mg PO DAILY tab 04/05/16 09/28/16 History Gemfibrozil 600 mg PO QD tab 04/05/16 09/28/16 History Hydrochlorothiazide 1 tab PO BID tab 04/05/16 09/28/16 History Insulin Glargine SoloStar Inj 100 unit BID 04/05/16 09/28/16 History [Lantus Solostar Inj] Lisinopril 1 tab PO DAILY tab 04/05/16 09/28/16 History Lovastatin 20 mg PO DAILY tab 04/05/16 09/28/16 History Metformin HCl 2 tab PO BID tab 04/05/16 09/28/16 History Metoprolol Tartrate 1 tab PO DAILY tab 04/05/16 09/28/16 History Sitagliptin Phosphate [Januvia] 1 tab PO DAILY tab 04/05/16 09/28/16 History Ciclopirox/Nail Lacquer Removr 1 each TOPICAL DAILY #1 box 06/20/16 09/28/16 Clinic [Cnl 8 Nail Kit] 8. Time, care, counseling and coordination of care for this discharge is greater than 30 minutes. Exam - Vitals Vital Signs: Vital Signs Temperature 97.7 F Temperature Source Temporal Artery Scan Pulse Rate [Apical] 72 Pulse Rate [Pulse Oximeter] 90 Pulse Rate 88 Respiratory Rate 20 Blood Pressure [Left Arm] 143/57 Blood Pressure 117/59 Pulse Ox 96 Oxygen Flow Rate 3 Oxygen Delivery Method Nasal Cannula Height 5 ft 11 in Weight 161.479 kg Patient Problems - Patient Problem List (1) Asthma exacerbation Current Visit: Yes Status: Acute (2) Diabetes Current Visit: Yes Status: Acute (3) Hyponatremia Current Visit: Yes Status: Acute (4) Obesity Current Visit: Yes Status: Acute (5) Hypertension Current Visit: Yes Status: Acute
[2016-09-30] MEDS: LORazepam 2 MG/1 ML VIAL IVP PRN (13:18)
[2016-09-30 14:38] LABS: ABG BASE EXCESS 0 MMOL/L (-2-2); ABG HCO3 26 (22-26); ABG OXYGEN SATURATION 87 % (90-100); ABG PH 7.41 (7.35-7.45); ABG TCO2 25 MMOL/L (23-27); ALLEN TEST Y; COLLECTION SITE L RAD
[2016-09-30 14:39] LABS: FIO2/O2 RA
--- NOTE | 2016-09-30 15:08 | DI ---
CT CHEST W/O CONTRAST,09/30/2016 2:03 PM: Clinical History: Low oxygen saturations Previous Exam: None at this facility. Findings: Multiple helically acquired CT images are obtained through the chest without contrast, and demonstrat e mild subsegmental atelectasis in the lung bases. Coronary artery calcifications are seen. The upper abdomen is unremarkable. Skeletal structures are also unremarkable. There is some motion artifact which limits evaluation. There is no significant lymphadenopathy. The thyroid is unremarkable. Impression: No acute intrathoracic pathology.
--- NOTE | 2016-09-30 16:37 | PT.PROG ---
Progress Note Progress Note: S. Patient stated that he is feeling very "wobbly" this afternoon. O. Patient ambulated 150 feet around the nurses station with an adjustable cane. Patient was left in chair in 317 Nursing was notified. A. Patient was unsteady during ambulation this afternoon, He was able to use the cane to steady himself however at times had to use the wall to assist with ambulation. Patient would continue to benefit from skilled therapy at this time. P. continue POC.
[2016-09-30 16:55] VITALS: TEMP 97.1
--- NOTE | 2016-10-01 11:16 | PTI REPORT ---
Thank you for the referral of Sergio Raymundo. He was seen on 09/30/16 for an inpatient evaluation secondary to asthma and cardiac concerns. SUBJECTIVE: The patient is a 61-year-old male who was referred to us today by Dr. Escobar secondary to an admission over the weekend with asthma and cardiac concerns. 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 The patient states he is currently trying to lose weight and get himself ready for a cardiac surgery where he has to have a quadruple bypass. He states his doctors want him losing 30-40 pounds prior to the surgery. He states his mother has been in the hospital and he has been under a great deal of stress and concern over the last month. She has been hospitalized twice and is now in the [facility] where she is receiving rehabilitative care so that she can go home with him with minimal to moderate assist with all transfers and mobility. The patient states that he had troubles breathing starting around last and it progressed to the point where he was hospitalized over the weekend. He states he feels much better today. PAST MEDICAL HISTORY: Past medical history can be found in the patient's medical record. OBJECTIVE FINDINGS: General observations: The patient is a 360+ lb individual and has slight hip flexion contractures bilaterally. Pain: The patient complains of no pain. He states when he does ambulate and get around for lengthy periods of time his left knee becomes very sore. He complains of no shoulder pain. Range of motion: The patient has functional range of motion of the upper extremities. The patient has normal range of motion of both knees. Ankles and feet are within normal limits. Edema: No swelling is evident. Strength: The patient demonstrates strength of 4+/5 for both shoulders, elbows, hands, and fingers. The patient has poor abdominal strength and trunk control. Hip strength is 3/5 and knee and ankle strength is 4/5. Ambulation: The patient had a low tolerance for ambulation but did come from his room to the therapy department with a walker, assist of one, and two liters of oxygen. ASSESSMENT: Problem List: Decreased endurance/activity tolerance Short-Term Goals: To be met by discharge from inpatient: Patient will be able to ambulate household distances independently with least restrictive assistive device. Patient will be able to tolerate 15 minutes of continuous activity. Long-Term Goals: To be met following discharge from inpatient: Patient will be able to return home and care for his mother and keep both of them independent within their living environment. TREATMENT PLAN: Patient will be seen B.I.D during the week and one time per day over the weekend as an inpatient for light strengthening, transfers, and ambulation. INITIAL TREATMENT: Treatment today consisted of the initial evaluation followed by the patient transferring to the therapy department with a walker, assist of one, and two liters of oxygen. We worked on transfer training, light cardiovascular activities, and light strengthening to both uppers and lowers. The patient did ambulate back to his room, fairly out of breath and tired from the activity he did perform. CINDY
--- NOTE | 2016-10-01 11:59 | PT PM DAY ---
Diagnosis : Asthma/Cardiac Concerns PM - Physical Therapy S: The patient reports no new changes. O: The patient was seen in his room. He was working with OT at the time. He was on room air and his oxygen saturation was at 84%. They have him on oxygen. The nursing staff and medical staff on duty were alarmed and wanted to do some additional testing before sending him home. We did put him on a straight cane and instructed him in some propre usage of that cane within the room and hallways of the hospital, at least for now. We will await further instructions from nursing and medical before pursuing anymore rehab until he is cleared after some of his testing coming up. A: We will await further instructions from nursing and medical before pursuing anymore rehab until he is cleared after some of his testing coming up. P: Continue seeing patient BID during the week and one time per day over the weekend for transfers, ambulation, and range of motion/strengthening exercises. MTDD
--- NOTE | 2016-10-01 16:18 | OTI REPORT ---
Thank you for the referral of Sergio Raymundo. He was seen on 09/30/16 for an occupational therapy inpatient evaluation. SUBJECTIVE: The patient is a 61-year-old male who is being seen secondary to having an asthma exacerbation. The patient is obese, has diabetes, hyponatremia, and hypertension. 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 He does have some anxiety and is demonstrating some shortness of breath and other concerns. The patient does live in [place] with his mother. He says that they mainly use the side door for entrance into the home. He does also have a ramp that goes into his home. His bathroom is set up with a walk in shower. He has a higher toilet. Prior to admission the patient was independent with all ADLs including driving, grocery shopping, dressing, cooking, cleaning, and laundry. He does not have any assistance available at this time. The patient states that he has not been on oxygen for the last two months, but he says that he feels like he has been short of breath. Nursing wanted us to do some functional activities without oxygen and just on room air today. PAST MEDICAL HISTORY: Past medical history can be found in the patient's medical record. OBJECTIVE FINDINGS: Vitals: The patient's blood pressure was 137/71, his heart rate was 101 beats per minute, and his oxygen saturation on three liters of oxygen was 93%. After 10 minutes of activity without oxygen on room air, the patient's oxygen saturation dropped down to 84%. Activities of daily living: The patient struggles with lower extremity dressing. He was issued a regional account manager to doff his socks and a sock aide to don his socks. He was also issued a bath sponge to be more independent with showering task. The patient does have a chair that he will sit on in the shower. The patient struggled doffing his socks with the regional account manager. He needed verbal cues and demonstration x2 for this. He needed demonstration and verbal cues to don socks with sock aide. The patient also used the regional account manager to start donning his pants. The patient was independent with donning his shirt. Balance: The patient did have some balance difficulties when standing. The patient required min assist from the therapist in order to keep his balance three different times during standing activities while pulling on his bib overalls. Ambulation: The therapist did call a PT to go over use of a cane with the patient, which he would highly benefit from secondary to his decreased balance. Range of motion: The patient has active range of motion that is within functional limits. Strength: Upper extremity strength throughout was 4/5 for shoulders, elbows, and wrists. Endurance: The patient has very poor activity tolerance and becomes short of breath very easily. ASSESSMENT: Problem List: Decreased balance Patient's oxygen saturation drops on room air Education needed for adaptive equipment use Decreased mobility Decreased ability to perform functional transfers Decreased ability to perform ADLs Short-Term Goals: To be met by discharge from inpatient: Patient will be able to complete lower extremity dressing with use of adaptive equipment independently. Patient will improve upper extremity strength to 4+/5. Patient will participate in a cognitive assessment. Long-Term Goals: To be met following discharge from inpatient: Patient will be discharged to home, demonstrating independence and safety with all ADLs and functional transfers. TREATMENT PLAN: Patient will be seen B.I.D during the week and one time per day over the weekend as an inpatient to address the above goals and objectives. The patient may benefit from a cognitive assessment to address cognitive concerns. INITIAL TREATMENT: Treatment today consisted of the initial evaluation followed by the patient completing ADLs while sitting edge of bed. He benefitted from the regional account manager and the sock aide for lower extremity dressing. Safety was highly emphasized with patient. CINDY
== END 2016-09-30 19:31 | disposition home or self-care (01) ==
LOC: ER 23:32 → MED/SURG 09-29 00:59
PROVIDERS: ADMIT Internal Medicine; ATTEND Internal Medicine
DX: J45.901 Unspecified asthma with (acute) exacerbation (principal); E11.8 Type 2 diabetes mellitus with unspecified complications; E87.1 Hypo-osmolality and hyponatremia; E66.9 Obesity, unspecified; I10 Essential (primary) hypertension
CPT/HCPCS: 36415 ×2; 36600; 71020; 71275; 80053 ×2; 82803 ×2; 82948; 83735; 83880; 84484; 85025 ×2; 85379; 87804; 93005 ×2; 93010 ×2; 94640 ×4; 94660; 94761 ×2; 96365 ×2; 96367; 96375 ×2; 99284 ×2; J1815; J2930 ×2; J7512 ×2; J7620 ×3; Q0163; 90732; J1644; J1940; J2060; J7030; J7050

== ENCOUNTER → 2016-10-02 | Outpatient (CLI) | payer OTHER | LOC: MMPC 09:00 | PROVIDERS: ATTEND Family Medicine | DX: J45.41 Moderate persistent asthma with (acute) exacerbation (principal); E11.9 Type 2 diabetes mellitus without complications; Z79.4 Long term (current) use of insulin; I25.10 Atherosclerotic heart disease of native coronary artery without angina pectoris | CPT/HCPCS: 99214; G0463 ==

== ENCOUNTER → 2016-10-03 | Outpatient (CLI) | payer OTHER | LOC: MMPC 10:00 | PROVIDERS: ATTEND Podiatrist Foot & Ankle Surgery | DX: M79.675 Pain in left toe(s) (principal); E11.9 Type 2 diabetes mellitus without complications; B35.1 Tinea unguium; G62.9 Polyneuropathy, unspecified; Q66.7 Congenital pes cavus; E66.01 Morbid (severe) obesity due to excess calories | CPT/HCPCS: 99212 ==

== ENCOUNTER → 2016-10-24 | Outpatient (CLI) | payer OTHER | LOC: MMPC 09:00 | PROVIDERS: ATTEND Family Medicine | DX: E11.9 Type 2 diabetes mellitus without complications (principal); J45.41 Moderate persistent asthma with (acute) exacerbation; I25.10 Atherosclerotic heart disease of native coronary artery without angina pectoris; R53.82 Chronic fatigue, unspecified | CPT/HCPCS: 99214 ==

== ENCOUNTER 2016-10-30 13:04 | Inpatient (IN) | payer OTHER ==
[2016-10-30] MEDS ORDERED: IPRATROPIUM/ALBUTEROL SULFATE 3 ML NEB NEB ONE (13:23)
[2016-10-30] MEDS ORDERED: methylPREDNISolone 125 MG/2 ML VIAL IVP ONE (13:23)
[2016-10-30] MEDS: NORMAL SALINE 10 ML SYRINGE FLUSH IVP PRN ×2 (13:30→15:18)
--- NOTE | 2016-10-30 13:44 | EKG ---
[address] [address] Measurements Intervals [place] Rate: 76 P: -27 NC: 184 QRS: 52 QRSD: 74 T: 58 QT: 357 QTc: 388 Interpretive Statements SINUS RHYTHM Compared to ECG 09/29/2016 13:41:43 No significant changes Electronically Signed On 10-30-16 16:37:42 MDT by Arnaldo Mason [email or web address]
[2016-10-30 14:21] LABS: BASOPHILS # (AUTO) 0.06 10*3/UL; BASOPHILS % (AUTO) 1.1 % (0-1); EOSINOPHILS # (AUTO) 0.06 10*3/UL; EOSINOPHILS % (AUTO) 1.1 % (0-8); HEMATOCRIT 44.5 % (42.0-52.0); HEMOGLOBIN 14.5 g/dL (14.0-18.0); LYMPHOCYTES # (AUTO) 0.78 10*3/uL; MEAN CORPUSCULAR HGB CONC 32.6 g/dL (33-37); MEAN CORPUSCULAR VOLUME 85.9 FL (80-90); MEAN PLATELET VOLUME 10.2 FL (7.4-12.2); MONOCYTES # (AUTO) 0.89 10*3/UL (0.3-0.8); MONOCYTES % (AUTO) 15.8 % (5-15); NEUTROPHILS # (AUTO) 3.65 10*3/UL; NEUTROPHILS % (AUTO) 64.5 % (50-80); RED BLOOD COUNT 5.18 10^6/uL (4.70-6.10)
--- NOTE | 2016-10-30 14:23 | PDOC ---
Upper Respiratory HPI - General Chief Complaint: Cough / URI Stated Complaint: cough and back pain Date Seen by Provider: 10/30/16 Time Seen by Provider: 13:20 Source: POSITIVE: Patient Exam Limitations: POSITIVE: No limitations Nurse's Notes Reviewed & Considered: Yes - History of Present Illness Initial Comments: The patient is a 61-year-old male who presents to the emergency department with increased cough and shortness of breath. He has a known history of asthma for which he was hospitalized last month. He does use Advair inhalers as well as albuterol as needed. He states that since being in the hospital he felt like his sinus infection never fully cleared and he continues to have some sinus drainage and congestion. Over the past couple of days he has developed increased cough and shortness of breath. He states that his cough is productive of brownish colored mucus. He was actually here in the hospital attending to his mom who is on comfort care and was coughing significantly and advised to come to the emergency department for evaluation. He states that his mom has had some pneumonia and has been coughing sometimes on him. He reports some subjective chills over the past 24 hours however denies fever. In addition the patient does have known coronary artery disease and is actually currently trying to lose 30 pounds so that he can undergo quadruple bypass surgery in [place]. He does not have any current chest pain. He did have a little bit of chest pain last night however this has resolved. He is undergoing physical therapy and was in the pool yesterday when he pulled a muscle in his mid left back. He has continued pain in this region. This pain is not particularly worsened with taking a deep breath. - Patient Home Medications Home Medications: Home Medications Allopurinol 1 tab PO QD tab 04/05/16 Aspirin 81 mg PO DAILY tab 04/05/16 Gemfibrozil 600 mg PO QD tab 04/05/16 Lisinopril 1 tab PO DAILY tab 04/05/16 Lovastatin 20 mg PO DAILY tab 04/05/16 Metformin HCl 2 tab PO BID tab 04/05/16 Metoprolol Tartrate 1 tab PO DAILY tab 04/05/16 Sitagliptin Phosphate [Januvia] 1 tab PO DAILY tab 04/05/16 Albuterol Sulfate [Proair Hfa] 1 - 2 puff INH Q4-6H puff 10/02/16 Fluticasone/Salmeterol [Advair 250-50 Diskus] 1 puff INH BID puff 10/02/16 Gabapentin 1 cap PO QHS cap 10/02/16 Promethazine HCl/Codeine [Promethazine-Codeine Syrup] 5 ml PO Q4H #240 ml Clotrimazole/Betamet Diprop [Clotrimazole-Betamethasone Lot] 1 ml TOPICAL BID # 1 bottle 10/24/16 Cholecalciferol (Vitamin D3) [Vitamin D3] 2,000 unit PO DAILY #90 cap 10/28/16 Insulin Detemir Flexpen Inj [Levemir Flexpen Inj] 45 unit SQ BID 10/30/16 - Patient Allergies Allergies/Adverse Reactions: Allergies Allergy/AdvReac Type Severity Reaction Status Date / Time No Known Drug Allergies Allergy NOT Verified 10/31/16 03:18 APPLICABLE Past Medical History - heen HEENT History: Denies History Cardiovascular History: Hypertension, Other (please comment) Additional Cardiovasular History: HEART BLOCKABLE, WANT TO DO SURGERY BUT NEEDS TO LOSE 30 POUNDS. Respiratory History: Asthma Gastrointestinal History: Denies History Genitourinary History: Denies History Endocrine History: Denies History Musculoskeletal History: Denies History Neurological History: Denies History Blood Disorders: Denies History Psychiatric History: Denies History Cancer History: Denies History History of MDRO: Yes Alcohol Use: None Substance Use Type: None Previous Surgical History: No Type / Date of Surgery: APPENDIX. EXPLORATORY TESTICLES Significant Family History: No pertinent family hx Past Medical History Reviewed: Reviewed - No Changes ROS - Limitations ROS Limitations: No Limitations Constitution: REPORTS: Chills. DENIES: Fever Cardiovascular: REPORTS: Edema (Both legs). DENIES: Chest Pain (No current chest pain, he did have an episode of chest pain last night), Heart Palpitations Respiratory: REPORTS: Cough Productive (Brownish colored phlegm), Shortness Of Breath, Wheezing. DENIES: Hurts To Breathe Neurological: REPORTS: Denies Neuro Symptoms Gastrointestinal: REPORTS: Denies GI Symptoms Musculoskeletal: REPORTS: Back Pain Genitourinary: REPORTS: Denies Symptoms Eyes: REPORTS: Denies Symptoms ENT: REPORTS: Denies Symptoms Skin: DENIES: Rash Upper Respiratory/Fever Exam - General Appearance General Appearance: REPORTS: Alert, Cooperative, No Acute Distress - HEENT HEENT: POSITIVE: Head Inspection Nml, Eyes Inspection Nml, Ears Inspection Nml, Nose Inspection Nml, Pharynx Inspect. Nml - Neck Neck: REPORTS: Normal Inspection, Supple - Respiratory Respiratory: REPORTS: Other (He does have diminished breath sounds bilaterally and a wheezy cough, oxygen saturations are 96% on room air) - Abdomen Abdomen: Normal Bowel Sounds: (All Quadrants), Denies Tenderness: (All Quadrants ) - Cardiovascular Cardiovascular: REPORTS: Regular Rate and Rhythm, Heart Sounds Normal - Skin Skin: REPORTS: Intact, No Rash - Extremities Extremity: Normal ROM: (All Extremities) - Neurological / Psychological Neurological: POSITIVE: Other (No focal neurologic deficits) Upper Resp/Fever Progress - Results Reviewed by me Xrays/CTs/US Reviewed by me: Yes Discussed with Radiologist: Yes Radiology Findings: X-ray lumbar spine reveals degenerative changes with no acute fracture per radiologist. Chest x-ray shows no obvious infiltrate. Lab Results Reviewed: Yes Lab Results:: Laboratory Results 10/30/16 10/30/16 Range/Units 14:14 14:19 WBC 5.65 (4.8-10.8) 10^3/uL RBC 5.18 (4.70-6.10) 10^6/uL Hgb 14.5 (14.0-18.0) g/dL Hct 44.5 (42.0-52.0) % MCV 85.9 (80-90) FL MCH 28.0 (27-31) PG MCHC 32.6 L (33-37) g/dL RDW Std Deviation 48.8 (39-50) fL RDW Coeff of [place] 15.9 H (11.5-14.5) % Plt Count 214 (140-350) 10*3/uL MPV 10.2 (7.4-12.2) FL Immature Gran % (Auto) 3.7 (0-5) % Neut % (Auto) 64.5 (50-80) % Lymph % (Auto) 13.8 (10-50) % [place] % (Auto) 15.8 H (5-15) % Eos % (Auto) 1.1 (0-8) % Baso % (Auto) 1.1 H (0-1) % Immature Gran # (Auto) 0.21 10*3/UL Neut # (Auto) 3.65 10*3/UL Lymph # (Auto) 0.78 10*3/uL [place] # (Auto) 0.89 H (0.3-0.8) 10*3/UL Eos # (Auto) 0.06 10*3/UL Baso # (Auto) 0.06 10*3/UL WBC Morphology Comment Normal morphology (NORM) Plt Morphology Comment Normal morphology (NORM) RBC Morph Comment Normal morphology (NORM) D-Dimer 0.49 (0.00-0.59) mg/L VBG pH 7.44 H (7.32-7.42) VBG pCO2 34 L (45-55) mmHg VBG HCO3 23 (22-26) mmol/L VBG Base Excess -1 (-2-2) MMOL/L Sodium 136 (135-145) meq/L Potassium 4.3 (3.8-5.2) meq/L Chloride 99 (98-112) meq/L Carbon Dioxide 26 (23-33) meq/L Anion Gap 11 (5-20) BUN 16 (7-22) mg/dL Creatinine 0.8 (0.70-1.50) mg/dL Estimated GFR > 60 (>60 ml/min/1.73m(2)) BUN/Creatinine Ratio 20.00 (6-20) Glucose 131 H (78-110) mg/dL Calculated Osmolality 284.0 (267-292) mOsm/kg Lactic Acid 1.3 (0.70-2.10) MMOL/L Calcium 9.6 (8.7-10.7) mg/dL Magnesium 1.7 (1.6-2.4) mg/dL Total Bilirubin 0.5 (0.3-1.2) mg/dL AST 30 (21-57) IU/L ALT 35 (21-72) IU/L Alkaline Phosphatase 77 (38-126) IU/L Troponin I < 0.012 (< 0.040) ng/mL C-Reactive Protein 1.3 H (0.0-0.9) mg/dL Total Protein 7.6 (6.1-8.0) g/dL Albumin 4.3 (3.5-4.8) g/dL Globulin 3.4 (2.50-4.10) g/dL Albumin/Globulin Ratio 1.20 L (1.3-2.0) mg/g EKG Interpreted/Reviewed By Me:: Yes EKG Interpretation:: POSITIVE: Normal Sinus Rhythm, Normal Rate, Normal Intervals, Normal QRS, Normal ST/T, Other (No acute ST segment or T-wave changes ) - Patient's Progress MDM / ED Course: Blood cultures and lactate were drawn with initial IV start. He did receive a DuoNeb and venous blood gas was obtained. The DuoNeb did seem to help subjectively. He continued to have significant cough. X-ray findings and laboratory findings were discussed with the patient. The patient does have multiple comorbid medical conditions. He did test positive for influenza. Is also possible that he may have early pneumonia. The patient is under considerable stress as his mom while he was here in the emergency room and I had to discuss these findings with him at her bedside on the medical floor. Treatment options were discussed including outpatient versus inpatient treatment. The patient does live in [place] which is a consideration and decision was made to go ahead and admit him in the hospital for treatment of influenza, asthma exacerbation. His back pain appears to be a muscle strain. Dr. Carpenter is agreed to admit the patient. Patient Care Time - Estimated PCT Patient Care Time (In Minutes): 35 Vital Signs - Recent Vital Signs Vital Signs: Vital Signs (Last 8 hours) Temp Pulse Resp BP Pulse Ox 10/31/16 04:14 97.4 F 71 20 134/71 95 10/31/16 01:00 97.4 F 66 24 129/61 90 10/30/16 21:00 98.7 F 71 24 150/70 91 - VS Reviewed Vital Signs Reviewed: Yes Discharge Clinical Impression: Asthma exacerbation, Influenza, Strain of lumbar region Discharge Disposition: Admit to Inpatient Condition: Stable Date Decision to Admit to Inpatient: 10/30/16 Time Decision to Admit to Inpatient: 15:45
[2016-10-30 14:28] LABS: PLATELET MORPHOLOGY COMMENT NORMAL MORPHOLOGY (NORM); RBC MORPHOLOGY COMMENT NORMAL MORPHOLOGY (NORM); WBC MORPHOLOGY COMMENT NORMAL MORPHOLOGY (NORM)
[2016-10-30 14:32] LABS: BLOOD UREA NITROGEN 16 mg/dL (7-22); CALCIUM 9.6 mg/dL (8.7-10.7); EST GLOMERULAR FILTRATION > 60 (>60 ml/min/1.73m(2)); SERUM ALBUMIN 4.3 g/dL (3.5-4.8)
[2016-10-30 14:35] LABS: VENOUS PH 7.44 (7.32-7.42)
[2016-10-30 14:39] LABS: C-REACTIVE PROTEIN 1.3 mg/dL (0.0-0.9); MAGNESIUM 1.7 mg/dL (1.6-2.4)
--- NOTE | 2016-10-30 15:06 | DI ---
PA /LATERAL CHEST X-RAY, 10/30/2016 1:24 PM : Clinical History: Productive cough. Previous Exam: 09/29/2016. There is no acute soft tissue or bony abnormality. Heart size is normal. Lungs are clear. Mediastinal structures are normal. There are no pulmonary nodules. Reading: Normal chest x-ray. There has been no change.
--- NOTE | 2016-10-30 15:09 | DI ---
LUMBAR SPINE SERIES, 10/30/2016 2:33 PM: Clinical History: Right lower back pain. Previous Exam: None at this facility. Upright AP and lateral views are submitted. There are image artifacts on the AP projection due to the patient's size necessitating use of maximum radiographic technique. The vertebral bodies are of norm al height and size. There is disc space narrowing at L1-2. The pedicles and posterior alignment are n ormal. There is sclerosis in the L3-4 through L5-S1 apophyseal joints bilaterally consistent with deg enerative arthritic disease. Both SI joints are grossly normal. Reading: Chronic disc space narrowing at L1-2. Arthritic degenerative changes are suspected at L3-4 through L5 -S1 bilaterally.
[2016-10-30] MEDS ORDERED: KETOROLAC 15 MG/1 ML VIAL IVP ONE (15:11)
[2016-10-30] MEDS ORDERED: ONDANSETRON 4 MG/2 ML VIAL IVP PRN (16:22)
[2016-10-30] MEDS ORDERED: NORMAL SALINE 10 ML SYRINGE FLUSH IVP PRN (16:22)
[2016-10-30] MEDS ORDERED: LIDOCAINE W/ SODIUM BICARB 0.5 ML SYR SUBD PRN (16:22)
[2016-10-30] MEDS: Sodium Chloride 0.9% 1,000 ML PRIMARY IV SCH (17:02)
[2016-10-30] MEDS: Prometh/Codeine Liquid 10/6.25 MG/5 ML ORAL.SYRIN PO SCH ×2 (17:03→20:44)
[2016-10-30] MEDS: OSELTAMIVIR PHOSPHATE 75 MG CAPSULE PO SCH ×2 (17:55→21:00)
[2016-10-30] MEDS ORDERED: KETOROLAC 15 MG/1 ML VIAL IVP PRN (19:31)
--- NOTE | 2016-10-30 20:29 | PDOC ---
History and Physical - History of Present Illness Date and Time of Service: 10/30/2016, 2023 Chief Complaint: Cough and back pain History of Present Illness: This is a very pleasant 61-year-old male who just lost his mother today, who has underlying coronary artery disease awaiting potential bypass surgery, asthma , obesity, diabetes mellitus type II, and was recently diagnosed with an asthma exacerbation. Over the past couple of weeks he's been progressively getting worse with a cough. The cough is really bad today, and he developed some lower back pain on the left side. He stated it was very difficult to control either of these symptoms. One thing that helped his cough was codeine with Phenergan. He has not had any fevers, and his cough has been minimally productive. He thinks his mother and him have passed it back and forth in his mother of a pneumonia today. The patient was recently admitted for an asthma exacerbation and he was also treated with antibiotics during that admission, Levaquin. He was placed on oxygen therapy and has been on anywhere from 2-3 L at home. He typically is on BiPAP at night for sleep apnea. When I saw him with his mother prior to her passing, the patient was coughing profusely and seemed to look but not toxic. I suggested he go down to the emergency room. He had a chest x-ray which was read as negative, but was positive for influenza. His cough is profuse. He also had back x-rays that showed degenerative changes of the spine and disc space narrowing as well at L1-L2. He had had a history of shingles and has had chronic intermittent pain on the left side since that episode of shingles in the past. He does state that he got the flu shot this year. His mother tested negative for the flu during her various hospital stays the past month. When I reviewed the chest x-ray, despite the negative rate, I wonder about an early infiltrate in the right lower lobe infiltrate and I feel that he may have a secondary bacterial pneumonia as well. Past Medical History Medical History: Diabetes, asthma, morbid obesity, elevated cholesterol, hypertension, coronary artery disease. He needs a CABG but has to lose some weight first according to cardiology Surgical History: 1. Appendectomy. 2. Exploratory surgery for undescended testes Pertinent Family History: Significant for stroke and pneumonia. His mother the day of pneumonia. Past Social History: Former smoker. Does not drink alcohol. Has no family. 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 No children. Tobacco Use: Former Smoker Substance Use Type: None Alcohol Use: None Medication / Allergies Home Medications: Home Medications Medication Instructions Recorded Confirmed Type Allopurinol 1 tab PO QD tab 04/05/16 10/30/16 History Aspirin 81 mg PO DAILY tab 04/05/16 10/30/16 History Gemfibrozil 600 mg PO QD tab 04/05/16 10/30/16 History Lisinopril 1 tab PO DAILY tab 04/05/16 10/30/16 History Lovastatin 20 mg PO DAILY tab 04/05/16 10/30/16 History Metformin HCl 2 tab PO BID tab 04/05/16 10/30/16 History Metoprolol Tartrate 1 tab PO DAILY tab 04/05/16 10/30/16 History Sitagliptin Phosphate [Januvia] 1 tab PO DAILY tab 04/05/16 10/30/16 History Albuterol Sulfate [Proair Hfa] 1 - 2 puff INH Q4-6H puff 10/02/16 10/30/16 History Fluticasone/Salmeterol [Advair 1 puff INH BID puff 10/02/16 10/30/16 History 250-50 Diskus] Gabapentin 1 cap PO QHS cap 10/02/16 10/30/16 History Promethazine HCl/Codeine 5 ml PO Q4H #240 ml 10/02/16 10/30/16 Clinic [Promethazine-Codeine Syrup] Clotrimazole/Betamet Diprop 1 ml TOPICAL BID #1 bottle 10/24/16 10/30/16 Clinic [Clotrimazole-Betamethasone Lot] Cholecalciferol (Vitamin D3) 2,000 unit PO DAILY #90 cap 10/28/16 10/30/16 Clinic [Vitamin D3] Insulin Detemir Flexpen Inj 45 unit SQ BID 10/30/16 10/30/16 History [Levemir Flexpen Inj] Allergies/Adverse Reactions: Allergies Allergy/AdvReac Type Severity Reaction Status Date / Time No Known Drug Allergies Allergy NOT Verified 10/30/16 16:33 APPLICABLE Review of Systems - Review of Systems All Systems: Reviewed & No Additional Complaints Except as Stated (I did a 12 point review systems and other than that discussed in history of present illness it is negative with exceptions noted below.) - Constitutional Constitutional: REPORTS: Weight Loss (As lost 22 pounds with therapy.) - Cardiovascular Cardiovascular: REPORTS: Other (Despite three-vessel coronary artery disease requiring a possible CABG, the patient states that he has no chest pain) - Musculoskeletal Musculoskeletal: REPORTS: Back Pain (This is on the left side. He states he had a history of shingles and is an intermittent pain on the left side but it felt worse after therapy when he was doing a lot of exercises.) Exam - Vitals Vital Signs: Vital Signs Temperature 98.2 F Temperature Source Tympanic Pulse Rate [Pulse Oximeter] 76 Pulse Rate [Apical] 80 Respiratory Rate 20 Blood Pressure [Left Arm] 137/69 Pulse Ox 90 Oxygen Flow Rate 1 Oxygen Delivery Method Nasal Cannula Height 5 ft 11 in Weight 344 lb - General General Appearance: POSITIVE: No Acute Distress, Cooperative Additional General Exam Details: Coughing frequently, ill, but not toxic - Head Head Exam: POSITIVE: Normal Inspection, Normocephalic, Atraumatic - Eye Eye Exam: POSITIVE: No Scleral Icterus - ENT ENT Exam: POSITIVE: Mucous Membranes Moist - Neck Neck Exam: POSITIVE: Normal Inspection, No Tenderness, No Thyromegaly - Respiratory Respiratory Exam: POSITIVE: Breathing Non Labored, Wheezes, Coarse Breath Sounds Additional Respiratory Exam Details: frequent coughing. - Cardiovascular Cardiovascular Exam: POSITIVE: RRR, No Murmur, No Clicks, No Gallops, No Rubs, No JVD - GI/Abdominal GI/Abdominal Exam: POSITIVE: Normal Bowel Sounds, Non Tender, Non Distended, Soft Additional GI/Abdominal Exam Details: Obese - Rectal Rectal Exam: POSITIVE: Deferred - External Exam: POSITIVE: Deferred Exam: POSITIVE: Deferred - Extremities Extremities Exam: POSITIVE: No Clubbing Present, No Cyanosis Present, +1 Edema ( In lower extremities bilaterally) - Back Back Exam: POSITIVE: Normal Inspection, No CVA Tenderness - Neurological Neurological Exam: POSITIVE: Alert, Oriented x 3, No Facial Droop, Speech Intact / Clear, Moves All Extremities Equally - Psychiatric Psychiatric Exam: POSITIVE: Normal Mood - Integumentary Integumentary Exam: POSITIVE: Normal Color, Warm, Dry, Intact Results - Labs CBC and BMP: 10/30/16 14:14 10/30/16 14:14 Labs - Last 24 Hours: Laboratory Results 10/30/16 10/30/16 Range/Units 14:14 14:19 WBC 5.65 (4.8-10.8) 10^3/uL RBC 5.18 (4.70-6.10) 10^6/uL Hgb 14.5 (14.0-18.0) g/dL Hct 44.5 (42.0-52.0) % MCV 85.9 (80-90) FL MCH 28.0 (27-31) PG MCHC 32.6 L (33-37) g/dL RDW Std Deviation 48.8 (39-50) fL RDW Coeff of [place] 15.9 H (11.5-14.5) % Plt Count 214 (140-350) 10*3/uL MPV 10.2 (7.4-12.2) FL Immature Gran % (Auto) 3.7 (0-5) % Neut % (Auto) 64.5 (50-80) % Lymph % (Auto) 13.8 (10-50) % [place] % (Auto) 15.8 H (5-15) % Eos % (Auto) 1.1 (0-8) % Baso % (Auto) 1.1 H (0-1) % Immature Gran # (Auto) 0.21 10*3/UL Neut # (Auto) 3.65 10*3/UL Lymph # (Auto) 0.78 10*3/uL [place] # (Auto) 0.89 H (0.3-0.8) 10*3/UL Eos # (Auto) 0.06 10*3/UL Baso # (Auto) 0.06 10*3/UL WBC Morphology Comment Normal morphology (NORM) Plt Morphology Comment Normal morphology (NORM) RBC Morph Comment Normal morphology (NORM) D-Dimer 0.49 (0.00-0.59) mg/L VBG pH 7.44 H (7.32-7.42) VBG pCO2 34 L (45-55) mmHg VBG HCO3 23 (22-26) mmol/L VBG Base Excess -1 (-2-2) MMOL/L Sodium 136 (135-145) meq/L Potassium 4.3 (3.8-5.2) meq/L Chloride 99 (98-112) meq/L Carbon Dioxide 26 (23-33) meq/L Anion Gap 11 (5-20) BUN 16 (7-22) mg/dL Creatinine 0.8 (0.70-1.50) mg/dL Estimated GFR > 60 (>60 ml/min/1.73m(2)) BUN/Creatinine Ratio 20.00 (6-20) Glucose 131 H (78-110) mg/dL Calculated Osmolality 284.0 (267-292) mOsm/kg Lactic Acid 1.3 (0.70-2.10) MMOL/L Calcium 9.6 (8.7-10.7) mg/dL Magnesium 1.7 (1.6-2.4) mg/dL Total Bilirubin 0.5 (0.3-1.2) mg/dL AST 30 (21-57) IU/L ALT 35 (21-72) IU/L Alkaline Phosphatase 77 (38-126) IU/L Troponin I < 0.012 (< 0.040) ng/mL C-Reactive Protein 1.3 H (0.0-0.9) mg/dL Total Protein 7.6 (6.1-8.0) g/dL Albumin 4.3 (3.5-4.8) g/dL Globulin 3.4 (2.50-4.10) g/dL Albumin/Globulin Ratio 1.20 L (1.3-2.0) mg/g Microbiology 10/30/16 17:56 Nasal Swab Nasal Screen MRSA (PCR)(JOSEPH) - Final, negative 10/30/16 14:14 Nasal Swab Influenza Types A,B Direct EIA - Final, positive for influenza B - EKG Data -: EKG Interpreted by Me Rate: Normal EKG Shows Normal: Sinus Rhythm - Imaging Status: Image Reviewed by Me (Chest x-ray, on my view, looks like there could be an early right lower lobe infiltrate) Assessment and Plan - Patient Problems (1) Influenza, bronchopneumonia Current Visit: Yes Status: Acute (2) Influenza B Current Visit: Yes Status: Acute (3) Asthma Current Visit: Yes Status: Acute (4) Diabetes Current Visit: Yes Status: Acute Qualifiers: Diabetes mellitus type: type 2 Diabetes mellitus complication status: without complication Diabetes mellitus correction insulin use: with exterminator helper termite use Qualified Description: Type 2 diabetes mellitus without complication, with long-term current use of insulin Qualifier Code(s): ( E11.9) Type 2 diabetes mellitus without complications, (Z79.4) FPC ( current) use of insulin (5) Hypertension Current Visit: Yes Status: Chronic Qualifiers: Hypertension type: essential hypertension Qualified Description: Essential hypertension Qualifier Code(s): (I10) Essential (primary) hypertension (6) Coronary artery disease Current Visit: Yes Status: Acute Qualifiers: Coronary Disease-Associated Artery/Lesion type: [place] artery [place] vs. transplanted heart: [place] heart Associated angina: without angina Qualified Description: Coronary artery disease involving [place] coronary artery of [place] heart without angina pectoris Qualifier Code(s): (I25.10) Atherosclerotic heart disease of [place] coronary artery without angina pectoris (7) Hypercholesterolemia Current Visit: Yes Status: Acute - Assessment / Plan Additional Assessment/Plan Details: Admit the patient. Breathing therapies/IV fluids/cough therapies/think is a secondary pneumonia/ Tamiflu for the influenza. Respiratory droplet isolation. Continue home medications for diabetes, hypertension, and other medical issues although I will hold off on Advair with the flu. Get Pneumovax vaccine. Pain medications for back pain. Patient would be too big for an MRI here I believe that his weight, and I think that with three-vessel coronary artery disease, his options for procedural therapy for his back pain are very limited. I will hold off on physical therapy currently because of the influenza state. He should remain out of therapy for at least the next 2 weeks. Instead of Levaquin, we'll go with Rocephin and Zithromax to rotate antibiotics for this presumed secondary bacterial pneumonia. I discussed the above plan with the patient and he agreed.
[2016-10-30] MEDS: cefTRIAXone Inj 2 GM in Sodium Chloride 0.9% 100 ML IV SCH (20:40)
[2016-10-30] MEDS ORDERED: Pneumococcal Vacc 13 Syringe 0.5 ML DISP.SYRIN IM SCH (20:45)
[2016-10-30] MEDS: metFORMIN 500 MG TABLET PO SCH (20:45)
[2016-10-30] MEDS: Metoprolol TARTRATE Tab 50 MG TAB PO SCH (20:45)
[2016-10-30] MEDS: GABAPENTIN 100 MG CAPSULE PO SCH (20:46)
[2016-10-30] MEDS: HYDROcodone-APAP 5 MG -325 MG TABLET PO PRN (20:46)
[2016-10-30] MEDS: Insulin Detemir 300unit/3ml Flexpen SUBCUT SCH (20:47)
[2016-10-30] MEDS ORDERED: BETAMETHASONE DIPROPIONATE TOPICAL SCH (21:00)
[2016-10-30] MEDS ORDERED: CLOTRIMAZOLE TOPICAL SCH (21:00)
[2016-10-30] MEDS ORDERED: Insulin Detemir 300unit/3ml Flexpen SUBCUT SCH (21:00)
[2016-10-30] MEDS: Simvastatin Tab 10 MG TAB PO SCH (21:43)
[2016-10-31] MEDS: Prometh/Codeine Liquid 10/6.25 MG/5 ML ORAL.SYRIN PO SCH ×6 (00:40→19:45)
[2016-10-31] MEDS: HYDROcodone-APAP 5 MG -325 MG TABLET PO PRN ×2 (00:40→14:08)
[2016-10-31] MEDS: Sodium Chloride 0.9% 1,000 ML PRIMARY IV SCH ×2 (04:49→13:30)
[2016-10-31] MEDS: ALBUTEROL SULFATE 2.5 MG/3 ML NEB PRN ×4 (06:40→20:37)
[2016-10-31 06:41] LABS: HEMOGLOBIN 13.1 g/dL (14.0-18.0); MEAN CORPUSCULAR HEMOGLOBIN 27.9 PG (27-31); MEAN CORPUSCULAR HGB CONC 32.8 g/dL (33-37); MEAN CORPUSCULAR VOLUME 85.3 FL (80-90); MEAN PLATELET VOLUME 10.8 FL (7.4-12.2); RED BLOOD COUNT 4.69 10^6/uL (4.70-6.10)
[2016-10-31 07:01] LABS: BLOOD UREA NITROGEN 22 mg/dL (7-22); CALCIUM 8.9 mg/dL (8.7-10.7); EST GLOMERULAR FILTRATION > 60 (>60 ml/min/1.73m(2))
[2016-10-31 07:14] LABS: BAND NEUTROPHILS % 0 % (0-10); BASOPHILS % (MANUAL) 1 % (0-1); EOSINOPHILS % (MANUAL) 0 % (0-8); LYMPHOCYTES % (MANUAL) 20 % (10-50); MONOCYTES % (MANUAL) 3 % (0-12); NEUTROPHILS % (MANUAL) 76 % (50-80); PLATELET MORPHOLOGY COMMENT NORMAL MORPHOLOGY (NORM); RBC MORPHOLOGY COMMENT NORMAL MORPHOLOGY (NORM); WBC MORPHOLOGY COMMENT NORMAL MORPHOLOGY (NORM)
[2016-10-31] MEDS: ASPIRIN 81 MG (BABY) CHEWABLE TABLET PO SCH (08:25)
[2016-10-31] MEDS: metFORMIN 500 MG TABLET PO SCH ×2 (08:26→20:20)
[2016-10-31] MEDS: CHOLECALCIFEROL 1000 IU TABLET PO SCH (08:26)
[2016-10-31] MEDS: GEMFIBROZIL 600 MG TABLET PO SCH (08:26)
[2016-10-31] MEDS: sitaGLIPtin Tab 100 MG TAB PO SCH (08:26)
[2016-10-31] MEDS: Metoprolol TARTRATE Tab 50 MG TAB PO SCH ×2 (08:27→20:19)
[2016-10-31] MEDS: LISINOPRIL 10 MG TABLET PO SCH (08:27)
[2016-10-31] MEDS: ALLOPURINOL 300 MG TABLET PO SCH (08:27)
[2016-10-31] MEDS: OSELTAMIVIR PHOSPHATE 75 MG CAPSULE PO SCH ×2 (08:27→20:19)
--- NOTE | 2016-10-31 13:42 | PDOC(PROG) ---
Date and Time of Service: 10/31/2016, 1340 Interval History: No chest pain. Cough persists. Poor sleep overnight. No nausea or vomiting. Wheezing a lot more on exam today. He still feels like he needs to be monitored here and he has been hypoxic and is requiring oxygen. Objective : Data - Labs CBC and BMP: 10/31/16 05:57 10/31/16 05:57 Labs - Last 24 Hours: Laboratory Results 10/31/16 Range/Units 05:57 WBC 3.71 L (4.8-10.8) 10^3/uL RBC 4.69 L (4.70-6.10) 10^6/uL Hgb 13.1 L (14.0-18.0) g/dL Hct 40.0 L (42.0-52.0) % MCV 85.3 (80-90) FL MCH 27.9 (27-31) PG MCHC 32.8 L (33-37) g/dL RDW Std Deviation 48.2 (39-50) fL RDW Coeff of [place] 15.8 H (11.5-14.5) % Plt Count 214 (140-350) 10*3/uL MPV 10.8 (7.4-12.2) FL Neutrophils % (Manual) 76 (50-80) % Band Neutrophils % 0 (0-10) % Lymphocytes % (Manual) 20 (10-50) % Monocytes % (Manual) 3 (0-12) % Eosinophils % (Manual) 0 (0-8) % Basophils % (Manual) 1 (0-1) % Metamyelocytes % Not Reportable Myelocytes % Not Reportable Promyelocytes % Not Reportable Blast Cells Not Reportable WBC Morphology Comment Normal morphology (NORM) Plt Morphology Comment Normal morphology (NORM) RBC Morph Comment Normal morphology (NORM) Sodium 136 (135-145) meq/L Potassium 4.1 (3.8-5.2) meq/L Chloride 104 (98-112) meq/L Carbon Dioxide 21 L (23-33) meq/L Anion Gap 11 (5-20) BUN 22 (7-22) mg/dL Creatinine 0.8 (0.70-1.50) mg/dL Estimated GFR > 60 (>60 ml/min/1.73m(2)) BUN/Creatinine Ratio 27.50 H (6-20) Glucose 185 H (78-110) mg/dL Calculated Osmolality 289.0 (267-292) mOsm/kg Calcium 8.9 (8.7-10.7) mg/dL Objective : Exam - General General Appearance: No Acute Distress, Cooperative Additional General Exam Details: Vital Signs - Last Taken Temperature 97.8 F 10/31/16 11:33 Pulse Rate 80 10/31/16 11:33 Respiratory Rate 19 10/31/16 11:33 Blood Pressure 130/66 10/31/16 11:33 Pulse Ox 93 10/31/16 11:33 On oxygen currently. - Eye Eye Exam: No Scleral Icterus - Respiratory Respiratory Exam: Breathing Non Labored, Wheezes - Cardiovascular Cardiovascular Exam: RRR, No Murmur, No Clicks, No Gallops, No Rubs, No JVD - GI/Abdominal GI/Abdominal Exam: Normal Bowel Sounds, Non Tender, Non Distended, Soft - Extremities Extremities Exam: No Clubbing Present, No Edema Present, No Cyanosis Present Additional Extremities Exam Details: Lower extremity edema improved. - Neurological Neurological Exam: Alert, Oriented x 3, No Facial Droop, Speech Intact / Clear, Moves All Extremities Equally Assessment and Plan - Patient Problems (1) Influenza, bronchopneumonia Current Visit: Yes Status: Acute (2) Influenza B Current Visit: Yes Status: Acute (3) Asthma Current Visit: Yes Status: Acute (4) Diabetes Current Visit: Yes Status: Acute Qualifiers: Diabetes mellitus type: type 2 Diabetes mellitus complication status: without complication Diabetes mellitus skilled nursing insulin use: with technician terminal and repeater use Qualified Description: Type 2 diabetes mellitus without complication, with long-term current use of insulin Qualifier Code(s): ( E11.9) Type 2 diabetes mellitus without complications (5) Hypertension Current Visit: Yes Status: Chronic Qualifiers: Hypertension type: essential hypertension Qualified Description: Essential hypertension Qualifier Code(s): (I10) Essential (primary) hypertension (6) Coronary artery disease Current Visit: Yes Status: Acute Qualifiers: Coronary Disease-Associated Artery/Lesion type: [place] artery [place] vs. transplanted heart: [place] heart Associated angina: without angina Qualified Description: Coronary artery disease involving [place] coronary artery of [place] heart without angina pectoris Qualifier Code(s): (I25.10) Atherosclerotic heart disease of [place] coronary artery without angina pectoris (7) Hypercholesterolemia Current Visit: Yes Status: Acute - Assessment / Plan Additional Assessment/Plan Details: With the wheezing and hypoxia, I think the patient's asthma is exacerbated, and he may need steroids in the setting of this influenza pneumonia. We'll start this today. Continue breathing treatments. Continue Tamiflu and antibiotics. Oxygen when necessary. treatment of the patient's primary medical problems to continue with oral medications for diabetes as well as insulin. Continue aspirin for coronary artery disease.
[2016-10-31] MEDS: methylPREDNISolone 125 MG/2 ML VIAL IVP SCH ×2 (14:41→19:46)
[2016-10-31] MEDS ORDERED: Levofloxacin 750mg (Premix) 750 MG in Dextrose 1 BAG IV SCH (16:00)
[2016-10-31] MEDS: cefTRIAXone Inj 2 GM in Sodium Chloride 0.9% 100 ML IV SCH (17:31)
[2016-10-31] MEDS: Simvastatin Tab 10 MG TAB PO SCH (20:19)
[2016-10-31] MEDS: Insulin Detemir 300unit/3ml Flexpen SUBCUT SCH (20:20)
[2016-10-31] MEDS: GABAPENTIN 100 MG CAPSULE PO SCH (20:20)
[2016-11-01] MEDS: Prometh/Codeine Liquid 10/6.25 MG/5 ML ORAL.SYRIN PO SCH ×6 (00:01→20:44)
[2016-11-01] MEDS: Sodium Chloride 0.9% 1,000 ML PRIMARY IV SCH ×4 (00:01→16:14)
[2016-11-01] MEDS: HYDROcodone-APAP 5 MG -325 MG TABLET PO PRN ×3 (00:43→20:47)
[2016-11-01] MEDS: methylPREDNISolone 125 MG/2 ML VIAL IVP SCH ×4 (02:18→20:44)
[2016-11-01] MEDS ORDERED: Prometh/Codeine Liquid 10/6.25 MG/5 ML ORAL.SYRIN PO ONE (04:06)
[2016-11-01] MEDS: ALBUTEROL SULFATE 2.5 MG/3 ML NEB PRN ×2 (06:28→10:38)
[2016-11-01] MEDS: CHOLECALCIFEROL 1000 IU TABLET PO SCH (08:19)
[2016-11-01] MEDS: sitaGLIPtin Tab 100 MG TAB PO SCH (08:19)
[2016-11-01] MEDS: OSELTAMIVIR PHOSPHATE 75 MG CAPSULE PO SCH ×2 (08:19→20:45)
[2016-11-01] MEDS: metFORMIN 500 MG TABLET PO SCH ×2 (08:20→20:45)
[2016-11-01] MEDS: GEMFIBROZIL 600 MG TABLET PO SCH (08:20)
[2016-11-01] MEDS: ASPIRIN 81 MG (BABY) CHEWABLE TABLET PO SCH (08:21)
[2016-11-01] MEDS: LISINOPRIL 10 MG TABLET PO SCH (08:21)
[2016-11-01] MEDS: ALLOPURINOL 300 MG TABLET PO SCH (08:21)
[2016-11-01] MEDS: Metoprolol TARTRATE Tab 50 MG TAB PO SCH ×2 (08:22→20:46)
--- NOTE | 2016-11-01 13:07 | PDOC(PROG) ---
Date and Time of Service: 11/01/2016, 1305 Interval History: No complaints of chest pain. No fevers. Still feels short of breath, having cough, requiring oxygen, and wheezing. He states overall he just does not feel very well. Objective : Data - Labs CBC and BMP: 10/31/16 05:57 10/31/16 05:57 Labs - Last 24 Hours: Laboratory Results 10/30/16 10/30/16 10/31/16 Range/Units 14:14 14:19 05:57 WBC 5.65 3.71 L (4.8-10.8) 10^3/uL RBC 5.18 4.69 L (4.70-6.10) 10^6/uL Hgb 14.5 13.1 L (14.0-18.0) g/dL Hct 44.5 40.0 L (42.0-52.0) % MCV 85.9 85.3 (80-90) FL MCH 28.0 27.9 (27-31) PG MCHC 32.6 L 32.8 L (33-37) g/dL RDW Std Deviation 48.8 48.2 (39-50) fL RDW Coeff of [place] 15.9 H 15.8 H (11.5-14.5) % Plt Count 214 214 (140-350) 10*3/uL MPV 10.2 10.8 (7.4-12.2) FL Immature Gran % (Auto) 3.7 (0-5) % Neut % (Auto) 64.5 (50-80) % Lymph % (Auto) 13.8 (10-50) % [place] % (Auto) 15.8 H (5-15) % Eos % (Auto) 1.1 (0-8) % Baso % (Auto) 1.1 H (0-1) % Immature Gran # (Auto) 0.21 10*3/UL Neut # (Auto) 3.65 10*3/UL Lymph # (Auto) 0.78 10*3/uL [place] # (Auto) 0.89 H (0.3-0.8) 10*3/UL Eos # (Auto) 0.06 10*3/UL Baso # (Auto) 0.06 10*3/UL Neutrophils % (Manual) 76 (50-80) % Band Neutrophils % 0 (0-10) % Lymphocytes % (Manual) 20 (10-50) % Monocytes % (Manual) 3 (0-12) % Eosinophils % (Manual) 0 (0-8) % Basophils % (Manual) 1 (0-1) % Metamyelocytes % Not Reportable Myelocytes % Not Reportable Promyelocytes % Not Reportable Blast Cells Not Reportable WBC Morphology Comment Normal morphology Normal morphology (NORM) Plt Morphology Comment Normal morphology Normal morphology (NORM) RBC Morph Comment Normal morphology Normal morphology (NORM) D-Dimer 0.49 (0.00-0.59) mg/L VBG pH 7.44 H (7.32-7.42) VBG pCO2 34 L (45-55) mmHg VBG HCO3 23 (22-26) mmol/L VBG Base Excess -1 (-2-2) MMOL/L Sodium 136 136 (135-145) meq/L Potassium 4.3 4.1 (3.8-5.2) meq/L Chloride 99 104 (98-112) meq/L Carbon Dioxide 26 21 L (23-33) meq/L Anion Gap 11 11 (5-20) BUN 16 22 (7-22) mg/dL Creatinine 0.8 0.8 (0.70-1.50) mg/dL Estimated GFR > 60 > 60 (>60 ml/min/1.73m(2)) BUN/Creatinine Ratio 20.00 27.50 H (6-20) Glucose 131 H 185 H (78-110) mg/dL Calculated Osmolality 284.0 289.0 (267-292) mOsm/kg Lactic Acid 1.3 (0.70-2.10) MMOL/L Calcium 9.6 8.9 (8.7-10.7) mg/dL Magnesium 1.7 (1.6-2.4) mg/dL Total Bilirubin 0.5 (0.3-1.2) mg/dL AST 30 (21-57) IU/L ALT 35 (21-72) IU/L Alkaline Phosphatase 77 (38-126) IU/L Troponin I < 0.012 (< 0.040) ng/mL C-Reactive Protein 1.3 H (0.0-0.9) mg/dL Total Protein 7.6 (6.1-8.0) g/dL Albumin 4.3 (3.5-4.8) g/dL Globulin 3.4 (2.50-4.10) g/dL Albumin/Globulin Ratio 1.20 L (1.3-2.0) mg/g Objective : Exam - General General Appearance: No Acute Distress, Cooperative Additional General Exam Details: Vital Signs - Last Taken Temperature 97.4 F 11/01/16 11:47 Pulse Rate 60 11/01/16 11:47 Respiratory Rate 22 11/01/16 11:47 Blood Pressure 167/80 11/01/16 11:47 Pulse Ox 91 11/01/16 11:47 On 2 L per nasal cannula - Eye Eye Exam: No Scleral Icterus - Respiratory Respiratory Exam: Breathing Non Labored, Wheezes Additional Respiratory Exam Details: Significant and frequent cough. Wheezes are present still, but a little better than yesterday but not much. - Cardiovascular Cardiovascular Exam: RRR, No Murmur, No Clicks, No Gallops, No Rubs, No JVD - GI/Abdominal GI/Abdominal Exam: Normal Bowel Sounds, Non Tender, Non Distended, Soft - Extremities Extremities Exam: No Clubbing Present, No Edema Present, No Cyanosis Present - Neurological Neurological Exam: Alert, Oriented x 3, No Facial Droop, Speech Intact / Clear, Moves All Extremities Equally Assessment and Plan - Patient Problems (1) Influenza, bronchopneumonia Current Visit: Yes Status: Acute (2) Influenza B Current Visit: Yes Status: Acute (3) Asthma Current Visit: Yes Status: Acute (4) Diabetes Current Visit: Yes Status: Acute Qualifiers: Diabetes mellitus type: type 2 Diabetes mellitus complication status: without complication Diabetes mellitus infant teacher insulin use: with residential use Qualified Description: Type 2 diabetes mellitus without complication, with long-term current use of insulin Qualifier Code(s): ( E11.9) Type 2 diabetes mellitus without complications (5) Hypertension Current Visit: Yes Status: Chronic Qualifiers: Hypertension type: essential hypertension Qualified Description: Essential hypertension Qualifier Code(s): (I10) Essential (primary) hypertension (6) Coronary artery disease Current Visit: Yes Status: Acute Qualifiers: Coronary Disease-Associated Artery/Lesion type: [place] artery [place] vs. transplanted heart: [place] heart Associated angina: without angina Qualified Description: Coronary artery disease involving [place] coronary artery of [place] heart without angina pectoris Qualifier Code(s): (I25.10) Atherosclerotic heart disease of [place] coronary artery without angina pectoris (7) Hypercholesterolemia Current Visit: Yes Status: Acute - Assessment / Plan Additional Assessment/Plan Details: With asthma exacerbation, I think we need to continue higher dose steroids, Tamiflu and antibiotics for the influenza pneumonia and probable secondary pneumonia, oxygen as necessary. Continue albuterol which patient states is helping and also add duo nebs. Right prescription for nebulizer at home. Ultimately I would like to get the patient home given that he has influenza, but he's been very slow to respond to therapy and again I think his asthma is too exacerbated to sent home at this time.
[2016-11-01] MEDS: IPRATROPIUM/ALBUTEROL SULFATE 3 ML NEB NEB SCH ×2 (13:25→18:59)
--- NOTE | 2016-11-01 15:05 | PDOC(PROG) ---
Date and Time of Service: 11/01/2016, 2024, patient seen earlier today. Interval History: No complaints of chest pain earlier today. Still feels short of breath. Has significant cough. It is better with inhalers. He still feels run down enough that he feels like he needs another day here. I felt he was wheezing on exam although be it a little bit less than yesterday, and I think he needs to stay for his asthma exacerbation as well as continued treatment of his flu and secondary bacterial pneumonia. Objective : Data - Labs CBC and BMP: 10/31/16 05:57 10/31/16 05:57 Objective : Exam - General General Appearance: No Acute Distress, Cooperative Additional General Exam Details: Vital Signs - Last Taken Temperature 97.2 F 11/01/16 16:19 Pulse Rate 54 L 11/01/16 16:19 Respiratory Rate 22 11/01/16 16:19 Blood Pressure 148/64 11/01/16 16:19 Pulse Ox 94 11/01/16 16:19 - Head Head Exam: Normal Inspection, Normocephalic, Atraumatic - Eye Eye Exam: No Scleral Icterus - Respiratory Respiratory Exam: Breathing Non Labored, Wheezes Additional Respiratory Exam Details: Significant cough. - Cardiovascular Cardiovascular Exam: RRR, No Murmur, No Clicks, No Gallops, No Rubs, No JVD - GI/Abdominal GI/Abdominal Exam: Normal Bowel Sounds, Non Tender, Non Distended, Soft - Extremities Extremities Exam: No Clubbing Present, No Edema Present, No Cyanosis Present Assessment and Plan - Patient Problems (1) Influenza, bronchopneumonia Current Visit: Yes Status: Acute (2) Influenza B Current Visit: Yes Status: Acute (3) Asthma Current Visit: Yes Status: Acute (4) Diabetes Current Visit: Yes Status: Acute Qualifiers: Diabetes mellitus type: type 2 Diabetes mellitus complication status: without complication Diabetes mellitus snf insulin use: with snf use Qualified Description: Type 2 diabetes mellitus without complication, with long-term current use of insulin Qualifier Code(s): ( E11.9) Type 2 diabetes mellitus without complications (5) Hypertension Current Visit: Yes Status: Chronic Qualifiers: Hypertension type: essential hypertension Qualified Description: Essential hypertension Qualifier Code(s): (I10) Essential (primary) hypertension (6) Coronary artery disease Current Visit: Yes Status: Acute Qualifiers: Coronary Disease-Associated Artery/Lesion type: [place] artery [place] vs. transplanted heart: [place] heart Associated angina: without angina Qualified Description: Coronary artery disease involving [place] coronary artery of [place] heart without angina pectoris Qualifier Code(s): (I25.10) Atherosclerotic heart disease of [place] coronary artery without angina pectoris (7) Hypercholesterolemia Current Visit: Yes Status: Acute - Assessment / Plan Additional Assessment/Plan Details: Given asthma exacerbation, continue to watch the patient here in the hospital. He still requiring oxygen, is requiring breathing treatments and I have expanded that to albuterol and DuoNeb's. Continue Tamiflu and antibiotics. Patient may benefit from a steroid taper. If better tomorrow and able to go home, if I have taken care of prescriptions for Tamiflu, antibiotics, rubs, and albuterol, and a nebulizer.
[2016-11-01] MEDS: cefTRIAXone Inj 2 GM in Sodium Chloride 0.9% 100 ML IV SCH (16:53)
[2016-11-01] MEDS: Simvastatin Tab 10 MG TAB PO SCH (20:45)
[2016-11-01] MEDS: GABAPENTIN 100 MG CAPSULE PO SCH (20:46)
[2016-11-01] MEDS: Insulin Detemir 300unit/3ml Flexpen SUBCUT SCH (20:47)
[2016-11-02] MEDS: IPRATROPIUM/ALBUTEROL SULFATE 3 ML NEB NEB SCH ×2 (01:20→06:38)
[2016-11-02] MEDS: HYDROcodone-APAP 5 MG -325 MG TABLET PO PRN (01:21)
[2016-11-02] MEDS: Prometh/Codeine Liquid 10/6.25 MG/5 ML ORAL.SYRIN PO SCH ×4 (01:21→13:24)
[2016-11-02] MEDS: methylPREDNISolone 125 MG/2 ML VIAL IVP SCH ×2 (02:24→07:56)
[2016-11-02] MEDS: Sodium Chloride 0.9% 1,000 ML PRIMARY IV SCH ×2 (02:24→09:32)
[2016-11-02 05:04] VITALS: TEMP 97.6
[2016-11-02 07:05] VITALS: RESP 20
[2016-11-02] MEDS: LISINOPRIL 10 MG TABLET PO SCH ×2 (07:48→09:30)
[2016-11-02] MEDS: OSELTAMIVIR PHOSPHATE 75 MG CAPSULE PO SCH (09:16)
[2016-11-02] MEDS: metFORMIN 500 MG TABLET PO SCH (09:16)
[2016-11-02] MEDS: ALLOPURINOL 300 MG TABLET PO SCH (09:16)
[2016-11-02] MEDS: ASPIRIN 81 MG (BABY) CHEWABLE TABLET PO SCH (09:16)
[2016-11-02] MEDS: CHOLECALCIFEROL 1000 IU TABLET PO SCH (09:16)
[2016-11-02] MEDS: sitaGLIPtin Tab 100 MG TAB PO SCH (09:16)
[2016-11-02] MEDS: GEMFIBROZIL 600 MG TABLET PO SCH (09:16)
[2016-11-02] MEDS: Metoprolol TARTRATE Tab 50 MG TAB PO SCH (09:31)
--- NOTE | 2016-11-02 10:53 | DCSUMMARY ---
Hospitalization Summary Admit Date: 10/30/16 Discharge Date: 11/02/16 Hospital Course: Discharge diagnoses 1. Influenza A 2. Asthma exacerbation 3. Diabetes 4. Hypertension 5. History of coronary artery disease 6. Obesity 7. Hypercholesterolemia 8. Degenerative joint disease 9. Obstructive sleep apnea Hospital course This is a 61 years old male with medical history significant for history of for asthma, diabetes, history of coronary artery disease, obesity who came into the hospital because of his cough getting worse. He was recently in the hospital and was treated with antibiotics with Levaquin. He was discharged home on oxygen 2-3 L. Patient was in the hospital visiting his mom and Dr. Carpenter noticed his cough and suggested that he go to the ER and he was admitted for asthma exacerbation secondary to influenza. He did have an x-ray of the lumbar area which also showed degenerative changes in the spine. Chest x-ray was negative His mother unfortunately passed that day. Please see the note of Dr. Carpenter. Patient was admitted to the hospital was put on steroid, Tamiflu, antibiotics and bronchodilator treatment. Gradually there is improvement in his symptoms. I saw him on the day of discharge he was feeling better compared to when he came in. His exam was unremarkable lungs were clear there was no wheezing I can hear. I thought he could be discharged home and finish his treatment as an outpatient to be discharged on Tamiflu, antibiotics and bronchodilator. I also wrote for prescription of prednisone will be tapering dosage. I did tell him to follow-up with his primary post discharge. His blood pressure was elevated initially the day I saw him we gave him his medication and recheck his blood pressure when down and we discharge him after that. Part of it I think because he was getting IV fluid and secondary to the steroid. This need to be monitored later on as an outpatient with his primary. Laboratory Results 10/30/16 10/30/16 10/31/16 Range/Units 14:14 14:19 05:57 WBC 5.65 3.71 L (4.8-10.8) 10^3/uL RBC 5.18 4.69 L (4.70-6.10) 10^6/uL Hgb 14.5 13.1 L (14.0-18.0) g/dL Hct 44.5 40.0 L (42.0-52.0) % MCV 85.9 85.3 (80-90) FL MCH 28.0 27.9 (27-31) PG MCHC 32.6 L 32.8 L (33-37) g/dL RDW Std Deviation 48.8 48.2 (39-50) fL RDW Coeff of [place] 15.9 H 15.8 H (11.5-14.5) % Plt Count 214 214 (140-350) 10*3/uL MPV 10.2 10.8 (7.4-12.2) FL Immature Gran % (Auto) 3.7 (0-5) % Neut % (Auto) 64.5 (50-80) % Lymph % (Auto) 13.8 (10-50) % [place] % (Auto) 15.8 H (5-15) % Eos % (Auto) 1.1 (0-8) % Baso % (Auto) 1.1 H (0-1) % Immature Gran # (Auto) 0.21 10*3/UL Neut # (Auto) 3.65 10*3/UL Lymph # (Auto) 0.78 10*3/uL [place] # (Auto) 0.89 H (0.3-0.8) 10*3/UL Eos # (Auto) 0.06 10*3/UL Baso # (Auto) 0.06 10*3/UL Neutrophils % (Manual) 76 (50-80) % Band Neutrophils % 0 (0-10) % Lymphocytes % (Manual) 20 (10-50) % Monocytes % (Manual) 3 (0-12) % Eosinophils % (Manual) 0 (0-8) % Basophils % (Manual) 1 (0-1) % Metamyelocytes % Not Reportable Myelocytes % Not Reportable Promyelocytes % Not Reportable Blast Cells Not Reportable WBC Morphology Comment Normal morphology Normal morphology (NORM) Plt Morphology Comment Normal morphology Normal morphology (NORM) RBC Morph Comment Normal morphology Normal morphology (NORM) D-Dimer 0.49 (0.00-0.59) mg/L VBG pH 7.44 H (7.32-7.42) VBG pCO2 34 L (45-55) mmHg VBG HCO3 23 (22-26) mmol/L VBG Base Excess -1 (-2-2) MMOL/L Sodium 136 136 (135-145) meq/L Potassium 4.3 4.1 (3.8-5.2) meq/L Chloride 99 104 (98-112) meq/L Carbon Dioxide 26 21 L (23-33) meq/L Anion Gap 11 11 (5-20) BUN 16 22 (7-22) mg/dL Creatinine 0.8 0.8 (0.70-1.50) mg/dL Estimated GFR > 60 > 60 (>60 ml/min/1.73m(2)) BUN/Creatinine Ratio 20.00 27.50 H (6-20) Glucose 131 H 185 H (78-110) mg/dL Calculated Osmolality 284.0 289.0 (267-292) mOsm/kg Lactic Acid 1.3 (0.70-2.10) MMOL/L Calcium 9.6 8.9 (8.7-10.7) mg/dL Magnesium 1.7 (1.6-2.4) mg/dL Total Bilirubin 0.5 (0.3-1.2) mg/dL AST 30 (21-57) IU/L ALT 35 (21-72) IU/L Alkaline Phosphatase 77 (38-126) IU/L Troponin I < 0.012 (< 0.040) ng/mL C-Reactive Protein 1.3 H (0.0-0.9) mg/dL Total Protein 7.6 (6.1-8.0) g/dL Albumin 4.3 (3.5-4.8) g/dL Globulin 3.4 (2.50-4.10) g/dL Albumin/Globulin Ratio 1.20 L (1.3-2.0) mg/g Discharge instruction Diet diabetic Activity as started Medications Home Medications Medication Instructions Recorded Confirmed Type Allopurinol 1 tab PO QD tab 04/05/16 10/30/16 History Aspirin 81 mg PO DAILY tab 04/05/16 10/30/16 History Gemfibrozil 600 mg PO QD tab 04/05/16 10/30/16 History Lisinopril 1 tab PO DAILY tab 04/05/16 10/30/16 History Lovastatin 20 mg PO DAILY tab 04/05/16 10/30/16 History Metformin HCl 2 tab PO BID tab 04/05/16 10/30/16 History Metoprolol Tartrate 1 tab PO DAILY tab 04/05/16 10/30/16 History Sitagliptin Phosphate [Januvia] 1 tab PO DAILY tab 04/05/16 10/30/16 History Albuterol Sulfate [Proair Hfa] 1 - 2 puff INH Q4-6H puff 10/02/16 10/30/16 History Fluticasone/Salmeterol [Advair 1 puff INH BID puff 10/02/16 10/30/16 History 250-50 Diskus] Gabapentin 1 cap PO QHS cap 10/02/16 10/30/16 History Promethazine HCl/Codeine 5 ml PO Q4H #240 ml 10/02/16 10/30/16 Clinic [Promethazine-Codeine Syrup] Clotrimazole/Betamet Diprop 1 ml TOPICAL BID #1 bottle 10/24/16 10/30/16 Clinic [Clotrimazole-Betamethasone Lot] Cholecalciferol (Vitamin D3) 2,000 unit PO DAILY #90 cap 10/28/16 10/30/16 Clinic [Vitamin D3] Insulin Detemir Flexpen Inj 45 unit SQ DAILY 10/30/16 10/31/16 History [Levemir Flexpen Inj] Albuterol/Ipratrop Neb Soln 3 ml NEB Q6H PRN #120 ampul.neb 11/01/16 Rx [Duoneb Neb Soln] Cefuroxime Axetil [Ceftin] 500 mg PO BID #6 tablet 11/01/16 Rx Oseltamivir Phosphate [Tamiflu] 75 mg PO BID #3 cap 11/01/16 Rx Prednisone 10 mg PO DAILY #7 tab 11/02/16 Rx Follow-up with PCP in 1-2 weeks Condition at discharge was stable for discharge Exam - Vitals Vital Signs: Vital Signs Temperature 97.6 F Temperature Source Temporal Artery Scan Pulse Rate [Pulse Oximeter] 57 Pulse Rate [Apical] 80 Respiratory Rate 20 Blood Pressure [Left Arm] 198/89 Pulse Ox 91 Oxygen Flow Rate 1 Oxygen Delivery Method Nasal Cannula Height 5 ft 11 in Weight 344 lb - General General Appearance: POSITIVE: No Acute Distress, Morbidly Obese - Head Head Exam: POSITIVE: Normal Inspection, Atraumatic - Eye Eye Exam: POSITIVE: Normal Appearance - ENT ENT Exam: POSITIVE: Normal Exam - Neck Neck Exam: POSITIVE: Normal Inspection - Respiratory Respiratory Exam: POSITIVE: Clear to Auscultation - Bilaterally - Cardiovascular Cardiovascular Exam: POSITIVE: RRR - GI/Abdominal GI/Abdominal Exam: POSITIVE: Normal Bowel Sounds, Non Tender, Non Distended, Soft - Rectal Rectal Exam: POSITIVE: Deferred - External Exam: POSITIVE: Deferred - Extremities Extremities Exam: POSITIVE: Normal Inspection - Back Back Exam: POSITIVE: Normal Inspection - Neurological Neurological Exam: POSITIVE: Alert, Oriented x 3, CN II-XII Intact, Moves All Extremities Equally - Psychiatric Psychiatric Exam: POSITIVE: Normal Affect
== END 2016-11-02 13:30 | disposition home or self-care (01) | DRG 194 ==
LOC: ER 13:04 → MED/SURG 15:50
PROVIDERS: ADMIT Family Medicine; ATTEND Family Medicine
DX: J09.X2 Influenza due to identified novel influenza A virus with other respiratory manifestations (principal); J11.1 Influenza due to unidentified influenza virus with other respiratory manifestations; S39.012A Strain of muscle, fascia and tendon of lower back, initial encounter; J45.901 Unspecified asthma with (acute) exacerbation; E11.8 Type 2 diabetes mellitus with unspecified complications; I10 Essential (primary) hypertension; E66.9 Obesity, unspecified; I25.10 Atherosclerotic heart disease of native coronary artery without angina pectoris; E78.00 Pure hypercholesterolemia, unspecified; G47.33 Obstructive sleep apnea (adult) (pediatric); J18.0 Bronchopneumonia, unspecified organism
CPT/HCPCS: 36415 ×2; 71020; 72100; 80053; 82803; 83605; 83735; 84484; 85025; 85379; 86140; 87040; 87804; 93005; 93010; 94640; 96374; 96375; 99284 ×2; J2930; J7620; 80048; 82948; 85007; 87641; 90670; 94761; J0696; J1885; J7030; J7050

== ENCOUNTER → 2016-11-22 | Outpatient (CLI) | payer OTHER | LOC: MMPC 09:00 | PROVIDERS: ATTEND Family Medicine | DX: F43.8 Other reactions to severe stress (principal); G62.89 Other specified polyneuropathies; Z63.4 Disappearance and death of family member | CPT/HCPCS: 99213; G0463 ==

== ENCOUNTER → 2017-01-30 | Outpatient (CLI) | payer OTHER | LOC: MMPC 09:00 | PROVIDERS: ATTEND Family Medicine | DX: E11.9 Type 2 diabetes mellitus without complications (principal); Z95.1 Presence of aortocoronary bypass graft; J45.41 Moderate persistent asthma with (acute) exacerbation; G62.9 Polyneuropathy, unspecified; F43.9 Reaction to severe stress, unspecified; Z79.4 Long term (current) use of insulin | CPT/HCPCS: 99214; G0463 ==

== ENCOUNTER → 2017-02-12 | Outpatient (CLI) | payer OTHER | LOC: MMPC 09:00 | PROVIDERS: ATTEND Family Medicine | DX: Z95.1 Presence of aortocoronary bypass graft (principal) | CPT/HCPCS: 93798 ==

== ENCOUNTER → 2017-02-13 | Outpatient (CLI) | payer OTHER | LOC: MMPC 10:00 | PROVIDERS: ATTEND Podiatrist Foot & Ankle Surgery | DX: B35.3 Tinea pedis (principal); R60.0 Localized edema; L60.3 Nail dystrophy; B35.1 Tinea unguium; E11.8 Type 2 diabetes mellitus with unspecified complications; G62.9 Polyneuropathy, unspecified | CPT/HCPCS: 11721; 99213 ==

== ENCOUNTER → 2017-02-21 | Outpatient (CLI) | payer OTHER ==
[2017-02-21 10:35] LABS: HEMOGLOBIN A1C 5.82 % (4.2-6.0)
[2017-02-21 10:49] LABS: BLOOD UREA NITROGEN 21 mg/dL (7-22); BUN/CREATININE RATIO 26.25 (6-20); CALCIUM 9.3 mg/dL (8.7-10.7); CHOL/HDL RATIO 2.81 RATIO (0-4.0); EST GLOMERULAR FILTRATION > 60 (>60 ml/min/1.73m(2)); HDL CHOLESTEROL 33 mg/dL (40-150); SERUM ALBUMIN 3.9 g/dL (3.5-4.8); SERUM CHOLESTEROL 93 mg/dL (120-200)
== END ==
LOC: LAB 10:06
PROVIDERS: ATTEND Family Medicine
DX: E11.8 Type 2 diabetes mellitus with unspecified complications (principal); I25.10 Atherosclerotic heart disease of native coronary artery without angina pectoris; Z79.4 Long term (current) use of insulin; E78.5 Hyperlipidemia, unspecified; I10 Essential (primary) hypertension
CPT/HCPCS: 36415; 80053; 80061; 83036

== ENCOUNTER → 2017-02-26 | Outpatient (CLI) | payer OTHER | LOC: MMPC 09:00 | PROVIDERS: ATTEND Family Medicine | DX: R07.89 Other chest pain (principal); I25.10 Atherosclerotic heart disease of native coronary artery without angina pectoris; Z95.1 Presence of aortocoronary bypass graft | CPT/HCPCS: 99213; G0463 ==

== ENCOUNTER 2017-03-11 18:59 | Observation (INO) | payer OTHER ==
[2017-03-11] MEDS ORDERED: KETOROLAC 30 MG/1 ML VIAL IVP ONE (19:16)
[2017-03-11] MEDS ORDERED: ASPIRIN 81 MG (BABY) CHEWABLE TABLET PO ONE (19:16)
[2017-03-11] MEDS ORDERED: NORMAL SALINE 10 ML SYRINGE FLUSH IVP PRN ×4 (19:16→22:22)
[2017-03-11 19:40] LABS: HEMATOCRIT 38.8 % (42.0-52.0); HEMOGLOBIN 12.2 g/dL (14.0-18.0); MEAN CORPUSCULAR HEMOGLOBIN 24.7 PG (27-31); MEAN CORPUSCULAR HGB CONC 31.4 g/dL (33-37); MEAN CORPUSCULAR VOLUME 78.7 FL (80-90); MEAN PLATELET VOLUME 10.4 FL (7.4-12.2); NEUTROPHILS % (AUTO) 64.3 % (50-80); RED BLOOD COUNT 4.93 10^6/uL (4.70-6.10)
[2017-03-11 19:41] LABS: BASOPHILS # (AUTO) 0.09 10*3/UL; BASOPHILS % (AUTO) 1.1 % (0-1); EOSINOPHILS # (AUTO) 0.29 10*3/UL; EOSINOPHILS % (AUTO) 3.5 % (0-8); LYMPHOCYTES # (AUTO) 1.61 10*3/uL; MONOCYTES # (AUTO) 0.86 10*3/UL (0.3-0.8); MONOCYTES % (AUTO) 10.5 % (5-15); NEUTROPHILS # (AUTO) 5.26 10*3/UL; PLATELET MORPHOLOGY COMMENT NORMAL MORPHOLOGY (NORM); RBC MORPHOLOGY COMMENT NORMAL MORPHOLOGY (NORM); WBC MORPHOLOGY COMMENT NORMAL MORPHOLOGY (NORM)
[2017-03-11 19:49] LABS: BLOOD UREA NITROGEN 25 mg/dL (7-22); BUN/CREATININE RATIO 27.77 (6-20); CALCIUM 9.1 mg/dL (8.7-10.7); EST GLOMERULAR FILTRATION > 60 (>60 ml/min/1.73m(2)); SERUM ALBUMIN 3.7 g/dL (3.5-4.8)
--- NOTE | 2017-03-11 20:04 | DI ---
XR CXR 1VW,03/11/2017 7:16 PM: Clinical History: Chest pain Previous Exam: October 30, 2016 Findings: A single frontal radiograph of the chest is obtained, and demonstrates clear lungs. The cardiomediast inum and bony thorax are unremarkable. Patient is status post sternotomy is. This is new since the pr ior exam. Overlying EKG leads are seen. Impression: No acute cardiopulmonary disease.
[2017-03-11 20:06] LABS: CREATINE KINASE MB 1.88 NG/ML (0.00-5.00); TROPONIN I < 0.012 ng/mL (< 0.040)
--- NOTE | 2017-03-11 21:16 | DI ---
CT CTA CHEST NONCORONARY W/WO,03/11/2017 7:55 PM: Clinical History: Chest pain and elevated d-dimer. Previous Exam: September 30, 2016 Findings: Multiple helically acquired CT images are obtained through the chest following a CT angiogram protoco l, and demonstrate subsegmental atelectasis in the lung base. There is a small left pleural effusion. The pulmonary arteries are normal without filling defect or truncation to suggest pulmonary embolism. Multiple coronary artery calcifications are seen and patient is status post CABG. Patient is status post sternotomy. Mild degenerative changes of the skeletal structures are unremarkable. Impression: 1. Mild subsegmental atelectasis in the lung base. 2. No evidence of pulmonary embolism.
[2017-03-11] MEDS ORDERED: Sodium Chloride 0.9% 1,000 ML PRIMARY IV ONE (22:01)
[2017-03-11] MEDS ORDERED: NITROGLYCERIN 0.4 MG SL TAB (BOTTLE OF 3) SL PRN (22:01)
[2017-03-11] MEDS ORDERED: ONDANSETRON 4 MG/2 ML VIAL IVP PRN (22:01)
[2017-03-11] MEDS ORDERED: KETOROLAC 15 MG/1 ML VIAL IVP ONE (22:01)
[2017-03-11] MEDS ORDERED: MAG HYDROX/AL HYDROX/SIMETH 30 ML SUSP PO ONE (22:01)
[2017-03-11] MEDS ORDERED: Pantoprazole Inj 40 MG in Normal Saline Flush 10 ML IVP ONE (22:01)
[2017-03-11] MEDS ORDERED: HYDROcodone-APAP 7.5 MG-325 MG TABLET PO PRN ×2 (23:16→23:28)
[2017-03-12] MEDS: Sodium Chloride 0.9% 1,000 ML PRIMARY IV SCH ×2 (00:31→08:31)
--- NOTE | 2017-03-12 01:47 | PDOC ---
Chest Pain HPI - General Chief Complaint: Chest Pain Stated Complaint: CHEST PAIN Date Seen by Provider: 03/11/17 Time Seen by Provider: 19:05 Source: Patient, EMS Exam Limitations: POSITIVE: No limitations Treatment Prior to Arrival: REPORTS: Nitroglycerin, Aspirin Nurse's Notes Reviewed & Considered: Yes EMS Report Reviewed & Considered: Verbal - History of Present Illness Initial Comments: The patient is a 62-year-old male who is brought to the emergency room by ambulance. Patient states that approximately 2 hours SNUBBER he was lying at home and developed chest pain in the mid lower sternal area near the site of sternotomy done for coronary artery bypass, 4 vessel, done 09 December in [place]. Patient states that the onset of his pain was fairly abrupt and he rates the intensity of his pain as about a 6 on a scale of 10 at onset. He states his pain is somewhat less upon presentation to the emergency room. Patient has had no associated dyspnea. No cough. He does have a history of diabetes mellitus and morbid obesity. After his CABG his postoperative course was complicated by the development of a MRSA infection at the site of his donor arm arterial grafts. 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 Body Location Affected: REPORTS: Chest Timing: REPORTS: Abrupt Duration: 1-3 hours Severity: Moderate Persistent/Worse since (date): 03/11/17 Persistent/Worse since (time): 17:00 Context: REPORTS: Rest Quality: REPORTS: "Pain", Sharpness Radiation: REPORTS: None Associated Symptoms: DENIES: Nausea, Vomiting, Diaphoresis, Shortness of Breath , Hurts to Breathe, Palpitations, Productive Cough (blood), Productive Cough ( sputum), Weakness, Dizziness Modifying Factors: improves with: None Reported Similar Symptoms Previously: Yes Recently seen/treated/hospitalized: Yes (as above) Any Prior Injuries Related to Current Complaint?: No - Patient Home Medications Home Medications: Home Medications Aspirin 81 mg PO DAILY tab 04/05/16 Albuterol Neb Soln 0.083% 1 each INH Q3-4H PRN #1 box 01/30/17 Albuterol Sulfate [Proair Hfa] 1 - 2 puff INH Q4-6H #3 inhaler 01/30/17 Allopurinol 1 tab PO QD #90 tab 01/30/17 Atorvastatin Calcium 1 tab PO QHS #90 tab 01/30/17 Cholecalciferol (Vitamin D3) [Vitamin D3] 2,000 unit PO DAILY #90 cap 01/30/17 Citalopram Hydrobromide [Celexa] 1 tab PO DAILY #90 tab 01/30/17 Furosemide [Lasix] 1 tab PO DAILY #90 tab 01/30/17 Gabapentin 1 - 2 cap PO QHS #180 cap 01/30/17 Insulin Aspart [Novolog Flexpen] 7 unit SUBCUT AC #2 unit 01/30/17 Insulin Detemir [Levemir Flextouch] 40 unit SQ DAILY #1 box 01/30/17 Metoprolol Succinate 0.5 tab PO DAILY #45 tab 01/30/17 [place]-3/Dha/Epa/Fish Oil [Fish Oil 1,000 Mg Softgel] 1,000 mg PO QD cap Omeprazole 1 cap PO DAILY #90 cap 01/30/17 Potassium Chloride [Klor-Con M20] 40 meq PO DAILY #180 tab 01/30/17 Tamsulosin HCl 1 cap PO QHS #90 cap 01/30/17 Blood Sugar Diagnostic [Truetrack Test Strip] 1 each IN ACHS #100 strip Pen Needle, Diabetic [Trueplus Pen Needle] 1 each MC QID #120 each 02/12/17 Hydrocodone/Acetaminophen [Hydrocodon-Acetaminoph 7.5-325] 1 tab PO Q4H PRN #90 tab 02/26/17 - Patient Allergies Allergies/Adverse Reactions: Allergies Allergy/AdvReac Type Severity Reaction Status Date / Time No Known Drug Allergies Allergy NOT Verified 03/11/17 19:08 APPLICABLE Past Medical History - heen HEENT History: Denies History Cardiovascular History: Hypertension, Hyperlipidemia, Other (please comment) Additional Cardiovasular History: QUADRUPLE BYPASS 12/09/16. Respiratory History: Asthma, COPD, Sleep Apnea, Home Oxygen Use, Other (please comment) Additional Respiratory History: BIPAP AND 2L OXYGEN AT NIGHT Gastrointestinal History: Denies History Genitourinary History: Denies History Endocrine History: Type 2 Diabetes (insulin) Musculoskeletal History: Carpal Tunnel, Other (please comment) Prosthesis or Implant: No Additional Musculoskeletal History: BILATERAL CARPAL TUNNEL SURGERY X 2. LEFT KNEE SCOPE Neurological History: Denies History Blood Disorders: Denies History Psychiatric History: Denies History Male Reproductive History: Denies History Cancer History: Denies History In Past Year Been Physically Harmed or Verbally Threatened: No History of MDRO: Yes Type of MDRO: MRSA Other Type of MDRO: nares Tobacco Use: Former Smoker Alcohol Use: None Substance Use Type: Opiate Pain Medication Previous Surgical History: No Type / Date of Surgery: APPENDECTOMY. BILATERAL CARPAL TUNNEL X2. LEFT KNEE SCOPE. QUAD BYPASS 12/09/16 Significant Family History: No pertinent family hx Past Medical History Reviewed: Reviewed - No Changes ROS - Limitations ROS Limitations: No Limitations Constitution: REPORTS: Denies Symptoms Cardiovascular: REPORTS: Chest Pain Respiratory: REPORTS: Denies Resp Symptoms Neurological: REPORTS: Denies Neuro Symptoms Gastrointestinal: REPORTS: Denies GI Symptoms Endocrine: REPORTS: Denies Symptoms Musculoskeletal: REPORTS: Denies MS Symptoms Genitourinary: REPORTS: Denies Symptoms Eyes: REPORTS: Denies Symptoms ENT: REPORTS: Denies Symptoms Skin: REPORTS: Denies Skin Symptoms Lympathic: REPORTS: Denies Lympathic Symptoms Immunologic: POSITIVE: Denies Symptoms Psychiatric: POSITIVE: Anxiety, Depression Chest Pain PE - General Appearance General Appearance: REPORTS: Alert, Cooperative, No Acute Distress, No Evidence of Trauma - HEENT HEENT: POSITIVE: Head Inspection Nml, Eyes Inspection Nml, Ears Inspection Nml, Nose Inspection Nml, Oral/Dental Inspect. Nml, Pharynx Inspect. Nml, PERRL, EOMI - Neck Neck: REPORTS: Normal Inspection, No Carotid Bruit - Respiratory Respiratory: REPORTS: No Respiratory Distress, Breath Sounds Normal, Chest Non- Tender - Cardiovascular Cardiovascular: REPORTS: Regular Rate and Rhythm, Heart Sounds Normal, Equal Pulses, Strong Pulses, No Murmur, No Gallop, No Friction Rub, No JVD Peripheral Pulses: Radial (R): 2+, Radial (L): 2+ - Abdomen Abdomen: Soft: (All Quadrants), Normal Bowel Sounds: (All Quadrants), Denies Tenderness: (All Quadrants), No Splenomegaly: (All Quadrants), No Hepatomegaly: (All Quadrants), No Guarding: (All Quadrants), No Rebound: (All Quadrants), No Palpable Pulse: (All Quadrants), No Palpabale Mass: (All Quadrants), No Distention: (All Quadrants), No Rigidity: (All Quadrants) - Skin Skin: REPORTS: Intact, Normal For Race, Warm, Dry, No Rash, Other (Well healed sternotomy scar; patient somewhat tender over) - Extremities Extremity: Non-Tender: (All Extremities), Normal ROM: (All Extremities), Normal Inspection: (All Extremities) - Neurological / Psychological Neurological: 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 Lab Results Reviewed: Yes (d-dimer elevated; cardiac enzymes normal) Lab Results:: Laboratory Results 03/11/17 03/11/17 Range/Units 19:16 19:36 WBC 8.18 (4.8-10.8) 10^3/uL RBC 4.93 (4.70-6.10) 10^6/uL Hgb 12.2 L (14.0-18.0) g/dL Hct 38.8 L (42.0-52.0) % MCV 78.7 L (80-90) FL MCH 24.7 L (27-31) PG MCHC 31.4 L (33-37) g/dL RDW Std Deviation 49.7 (39-50) fL RDW Coeff of [place] 17.5 H (11.5-14.5) % Plt Count 269 (140-350) 10*3/uL MPV 10.4 (7.4-12.2) FL Immature Gran % (Auto) 0.9 (0-5) % Neut % (Auto) 64.3 (50-80) % Lymph % (Auto) 19.7 (10-50) % [place] % (Auto) 10.5 (5-15) % Eos % (Auto) 3.5 (0-8) % Baso % (Auto) 1.1 H (0-1) % Immature Gran # (Auto) 0.07 10*3/UL Neut # (Auto) 5.26 10*3/UL Lymph # (Auto) 1.61 10*3/uL [place] # (Auto) 0.86 H (0.3-0.8) 10*3/UL Eos # (Auto) 0.29 10*3/UL Baso # (Auto) 0.09 10*3/UL WBC Morphology Comment Normal morphology (NORM) Plt Morphology Comment Normal morphology (NORM) RBC Morph Comment Normal morphology (NORM) D-Dimer 1.40 H (0.00-0.59) mg/L Sodium 140 (135-145) meq/L Potassium 3.9 (3.8-5.2) meq/L Chloride 103 (98-112) meq/L Carbon Dioxide 27 (23-33) meq/L Anion Gap 10 (5-20) BUN 25 H (7-22) mg/dL Creatinine 0.9 (0.70-1.50) mg/dL Estimated GFR > 60 (>60 ml/min/1.73m(2)) BUN/Creatinine Ratio 27.77 H (6-20) Glucose 112 H (78-110) mg/dL Calculated Osmolality 294.0 H (267-292) mOsm/kg Calcium 9.1 (8.7-10.7) mg/dL Magnesium 1.9 (1.6-2.4) mg/dL Total Bilirubin 0.3 (0.3-1.2) mg/dL AST 23 (21-57) IU/L ALT 34 (21-72) IU/L Alkaline Phosphatase 74 (38-126) IU/L CK-MB (CK-2) 1.88 (0.00-5.00) NG/ML Troponin I < 0.012 (< 0.040) ng/mL Total Protein 6.8 (6.1-8.0) g/dL Albumin 3.7 (3.5-4.8) g/dL Globulin 3.1 (2.50-4.10) g/dL Albumin/Globulin Ratio 1.10 L (1.3-2.0) mg/g EKG Interpreted/Reviewed By Me:: Yes (normal) EKG Interpretation:: POSITIVE: Normal Sinus Rhythm, Normal Rate, Normal Intervals, Normal [place], Normal QRS, Normal ST/T - Patient's Progress Pain Medication Addressed: POSITIVE: Yes (Morphine sulfate and Toradol) School/Work Release Addressed: POSITIVE: Not Applicable Re-Examine Time: 21:35 Re-Examine Comment: Results of radiographic and laboratory studies discussed with patient. Patient still having some discomfort. Case discussed with hospitalist, Dr. Dove, and patient is admitted for further evaluation and treatment. Status: POSITIVE: Unchanged, Re-Examined Quality Measure Initiative: CP/AMI: POSITIVE: EKG, ASA - Consult Consult (If Yes, Name of Consulting MD & Time Called): Yes (Dr. Dove, [id number] ) Consulting MD will see pt:: POSITIVE: [facility] [place] Admit Counseled: POSITIVE: Patient, RE: Lab Results, RE: Radiology Results, RE: DX, RE : Need for F/U Patient Care Time - Estimated PCT Patient Care Time (In Minutes): 60 Vital Signs - Recent Vital Signs Vital Signs: Vital Signs (Last 8 hours) Temp Pulse Pulse Resp BP BP Pulse Ox 03/11/17 22:01 97.0 F 60 18 157/71 95 03/11/17 19:16 97.0 F 60 18 157/71 95 03/11/17 19:00 97.3 F 65 73 18 125/59 94 - VS Reviewed Vital Signs Reviewed: Yes Discharge Clinical Impression: Chest pain Discharge Disposition: Admit to Inpatient Condition: Stable Date Decision to Admit to Inpatient: 03/11/17 Time Decision to Admit to Inpatient: 21:45
--- NOTE | 2017-03-12 06:59 | EKG ---
[address] [address] Measurements Intervals [place] Rate: 52 P: 43 [place]: 247 QRS: 50 QRSD: 92 T: 34 QT: 478 QTc: 458 Interpretive Statements SINUS BRADYCARDIA WITH FIRST DEGREE AV BLOCK Compared to ECG 03/11/2017 19:03:16 Sinus rhythm no longer present and persistant T wave flattening Electronically Signed On 03-12-17 09:06:03 MDT by Luigi Mar MD [email or web address]
[2017-03-12] MEDS ORDERED: Insulin Lispro Flexpen 300 UNIT/3 ML INSULN.PEN SUBCUT SCH (07:00)
[2017-03-12] MEDS ORDERED: FUROSEMIDE 20 MG TABLET PO SCH ×2 (07:00→09:00)
[2017-03-12 07:14] LABS: BLOOD UREA NITROGEN 25 mg/dL (7-22); BUN/CREATININE RATIO 27.77 (6-20); CALCIUM 8.8 mg/dL (8.7-10.7); EST GLOMERULAR FILTRATION > 60 (>60 ml/min/1.73m(2))
[2017-03-12 07:23] LABS: HEMATOCRIT 36.5 % (42.0-52.0); HEMOGLOBIN 11.3 g/dL (14.0-18.0); MEAN CORPUSCULAR HEMOGLOBIN 24.2 PG (27-31); MEAN CORPUSCULAR VOLUME 78.2 FL (80-90); RED BLOOD COUNT 4.67 10^6/uL (4.70-6.10)
[2017-03-12 07:24] LABS: BASOPHILS % (AUTO) 0.8 % (0-1); EOSINOPHILS % (AUTO) 4.1 % (0-8); LYMPHOCYTES # (AUTO) 1.35 10*3/uL; MEAN PLATELET VOLUME 10.4 FL (7.4-12.2); MONOCYTES # (AUTO) 0.68 10*3/UL (0.3-0.8); NEUTROPHILS % (AUTO) 61.6 % (50-80)
[2017-03-12 07:25] LABS: BASOPHILS # (AUTO) 0.05 10*3/UL; EOSINOPHILS # (AUTO) 0.25 10*3/UL; PLATELET MORPHOLOGY COMMENT NORMAL MORPHOLOGY (NORM); RBC MORPHOLOGY COMMENT NORMAL MORPHOLOGY (NORM); WBC MORPHOLOGY COMMENT NORMAL MORPHOLOGY (NORM)
[2017-03-12] MEDS: Insulin Lispro Flexpen 300 UNIT/3 ML INSULN.PEN SUBCUT SCH ×2 (08:41→12:51)
[2017-03-12] MEDS ORDERED: ALLOPURINOL 300 MG TABLET PO SCH ×2 (09:00)
[2017-03-12] MEDS ORDERED: ASPIRIN 81 MG (BABY) CHEWABLE TABLET PO SCH (09:00)
[2017-03-12] MEDS ORDERED: METOPROLOL SUCCINATE 25 MG SR 24H TABLET PO SCH ×2 (09:00)
[2017-03-12] MEDS ORDERED: Pantoprazole Inj 40 MG in Normal Saline Flush 10 ML IVP SCH (09:00)
[2017-03-12] MEDS ORDERED: Insulin Detemir 300unit/3ml Flexpen SUBCUT SCH ×2 (09:00→21:00)
[2017-03-12] MEDS ORDERED: TAMSULOSIN 0.4 MG CAPSULE PO SCH ×2 (09:00→21:00)
[2017-03-12] MEDS ORDERED: CHOLECALCIFEROL 1000 IU TABLET PO SCH ×2 (09:00)
[2017-03-12] MEDS ORDERED: POTASSIUM CHLORIDE 20 MEQ TAB PO SCH ×2 (09:00)
[2017-03-12] MEDS ORDERED: OMEPRAZOLE 20 MG CAPSULE PO SCH (09:00)
[2017-03-12] MEDS ORDERED: CITALOPRAM 20 MG TABLET PO SCH ×2 (09:00)
--- NOTE | 2017-03-12 11:06 | PDOC ---
History and Physical - History of Present Illness Date and Time of Service: 11 march 2017, 2300 hrs Chief Complaint: Chest pain. History of Present Illness: Patient presented to the emergency room today with chest pain. He describes a sudden onset of sharp substernal pain in the inferior margin of his sternotomy incision. At the time this occurred he was at rest sitting on a couch. He denies any radiation of pain, no shortness of breath, no cough. He further denies headache, no sore throat, no nausea vomiting or diarrhea, no abdominal pain, no hematuria or dysuria, no fever chills or sweats. He states he is under increased stress in his personal life with recent demise of his mother. 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 He was present here at the hospital attending to her during her hospital stay and subsequent . He described in detail her decreasing respirations and slide into . Past Medical History Medical History: Recent coronary artery bypass grafting in November 2016. Diabetes , asthma, morbid obesity, elevated cholesterol, hypertension, coronary artery disease. He needs a CABG but has to lose some weight first according to cardiology Surgical History: 1. Appendectomy. 2. Exploratory surgery for undescended testes. 3. Coronary arterial bypass grafting Pertinent Family History: Significant for stroke and pneumonia. His mother the day of pneumonia. Past Social History: Former smoker. Does not drink alcohol. Has no family. 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 No children. Tobacco Use: Former Smoker Substance Use Type: Opiate Pain Medication Medication / Allergies Home Medications: Home Medications Medication Instructions Recorded Confirmed Type Aspirin 81 mg PO DAILY tab 04/05/16 03/11/17 History Albuterol Neb Soln 0.083% 1 each INH Q3-4H PRN #1 box 01/30/17 03/11/17 Clinic Albuterol Sulfate [Proair Hfa] 1 - 2 puff INH Q4-6H #3 inhaler 01/30/17 Clinic Allopurinol 1 tab PO QD #90 tab 01/30/17 03/11/17 Clinic Atorvastatin Calcium 1 tab PO QHS #90 tab 01/30/17 03/11/17 Clinic Cholecalciferol (Vitamin D3) 2,000 unit PO DAILY #90 cap 01/30/17 03/11/17 Clinic [Vitamin D3] Citalopram Hydrobromide [Celexa] 1 tab PO DAILY #90 tab 01/30/17 03/11/17 Clinic Furosemide [Lasix] 1 tab PO DAILY #90 tab 01/30/17 03/11/17 Clinic Gabapentin 1 - 2 cap PO QHS #180 cap 01/30/17 03/11/17 Clinic Insulin Aspart [Novolog Flexpen] 7 unit SUBCUT AC #2 unit 01/30/17 03/11/17 Clinic Insulin Detemir [Levemir Flextouch] 40 unit SQ DAILY #1 box 01/30/17 03/11/17 Clinic Metoprolol Succinate 0.5 tab PO DAILY #45 tab 01/30/17 03/11/17 Clinic [place]-3/Dha/Epa/Fish Oil [Fish Oil 1,000 mg PO QD cap 01/30/17 03/11/17 History 1,000 Mg Softgel] Omeprazole 1 cap PO DAILY #90 cap 01/30/17 03/11/17 Clinic Potassium Chloride [Klor-Con M20] 40 meq PO DAILY #180 tab 01/30/17 03/11/17 Clinic Tamsulosin HCl 1 cap PO QHS #90 cap 01/30/17 03/11/17 Clinic Blood Sugar Diagnostic [Truetrack 1 each IN ACHS #100 strip 02/12/17 03/11/17 Clinic Test Strip] Pen Needle, Diabetic [Trueplus Pen 1 each MC QID #120 each 02/12/17 03/11/17 Clinic Needle] Hydrocodone/Acetaminophen 1 tab PO Q4H PRN #90 tab 02/26/17 03/11/17 Clinic [Hydrocodon-Acetaminoph 7.5-325] Allergies/Adverse Reactions: Allergies Allergy/AdvReac Type Severity Reaction Status Date / Time No Known Drug Allergies Allergy NOT Verified 03/12/17 06:26 APPLICABLE Review of Systems - Review of Systems All Systems: Reviewed & No Additional Complaints Except as Stated Exam - Vitals Vital Signs: Vital Signs Temperature 97.1 F Temperature Source Temporal Artery Scan Pulse Rate [Pulse Oximeter] 61 Pulse Rate 54 Respiratory Rate 20 Blood Pressure [Right Arm] 134/44 Blood Pressure [Left Arm] 132/59 Blood Pressure 125/89 Pulse Ox 91 Oxygen Flow Rate 2 Oxygen Delivery Method Room Air Height 5 ft 11 in Weight 353 lb 12.8 oz - General General Appearance: POSITIVE: No Acute Distress, Cooperative, Obese - Head Head Exam: POSITIVE: Normal Inspection, Normocephalic, Atraumatic - Eye Eye Exam: POSITIVE: Normal Appearance, PERRL, EOMI, No Scleral Icterus - ENT ENT Exam: POSITIVE: Normal Exam, Normal External Ear Exam, Normal Oropharynx, Mucous Membranes Moist - Neck Neck Exam: POSITIVE: Normal Inspection, Full ROM, No Tenderness, No Lymphadenopathy, No Thyromegaly, JVP is not Raised - Respiratory Respiratory Exam: POSITIVE: Clear to Auscultation - Bilaterally, Breathing Non Labored, Normal To Percussion, Normal to Percussion and Palpation - Cardiovascular Cardiovascular Exam: POSITIVE: RRR, No Murmur, No Clicks, No Gallops, No Rubs - GI/Abdominal GI/Abdominal Exam: POSITIVE: Normal Bowel Sounds, Non Tender, Soft, Distended ( Obesity), No Masses, No Hepatomegaly, No Splenomegaly, No Organomegaly - Rectal Rectal Exam: POSITIVE: Deferred - External Exam: POSITIVE: Deferred Exam: POSITIVE: Deferred - Extremities Extremities Exam: POSITIVE: Normal Inspection, Full ROM, Normal Capillary Refill , No Clubbing Present, No Edema Present, No Cyanosis Present, Negative Steven's sign - Back Back Exam: POSITIVE: Normal Inspection, Full ROM, No CVA Tenderness - Neurological Neurological Exam: POSITIVE: Alert, Oriented x 3 - Psychiatric Psychiatric Exam: POSITIVE: Normal Affect, Normal Mood - Integumentary Integumentary Exam: POSITIVE: Normal Color, Warm, Dry, Intact - Central Line Examination Central Line Present on Admission: No Results - Labs CBC and BMP: 03/12/17 07:20 03/12/17 06:39 Labs - Last 24 Hours: Laboratory Results 03/12/17 03/12/17 03/12/17 Range/Units 02:03 06:39 07:20 WBC 6.17 (4.8-10.8) 10^3/uL RBC 4.67 L (4.70-6.10) 10^6/uL Hgb 11.3 L (14.0-18.0) g/dL Hct 36.5 L (42.0-52.0) % MCV 78.2 L (80-90) FL MCH 24.2 L (27-31) PG MCHC 31.0 L (33-37) g/dL RDW Std Deviation 49.0 (39-50) fL RDW Coeff of [place] 17.5 H (11.5-14.5) % Plt Count 242 (140-350) 10*3/uL MPV 10.4 (7.4-12.2) FL Immature Gran % (Auto) 0.6 (0-5) % Neut % (Auto) 61.6 (50-80) % Lymph % (Auto) 21.9 (10-50) % [place] % (Auto) 11.0 (5-15) % Eos % (Auto) 4.1 (0-8) % Baso % (Auto) 0.8 (0-1) % Immature Gran # (Auto) 0.04 10*3/UL Neut # (Auto) 3.80 10*3/UL Lymph # (Auto) 1.35 10*3/uL [place] # (Auto) 0.68 (0.3-0.8) 10*3/UL Eos # (Auto) 0.25 10*3/UL Baso # (Auto) 0.05 10*3/UL WBC Morphology Comment Normal morphology (NORM) Plt Morphology Comment Normal morphology (NORM) RBC Morph Comment Normal morphology (NORM) Sodium 136 (135-145) meq/L Potassium 3.8 (3.8-5.2) meq/L Chloride 104 (98-112) meq/L Carbon Dioxide 25 (23-33) meq/L Anion Gap 7 (5-20) BUN 25 H (7-22) mg/dL Creatinine 0.9 (0.70-1.50) mg/dL Estimated GFR > 60 (>60 ml/min/1.73m(2)) BUN/Creatinine Ratio 27.77 H (6-20) Glucose 120 H (78-110) mg/dL Calculated Osmolality 286.0 (267-292) mOsm/kg Calcium 8.8 (8.7-10.7) mg/dL Total Bilirubin 0.3 (0.3-1.2) mg/dL AST 14 L (21-57) IU/L ALT 26 (21-72) IU/L Alkaline Phosphatase 67 (38-126) IU/L CK-MB (CK-2) 1.41 (0.00-5.00) NG/ML Troponin I < 0.012 < 0.012 (< 0.040) ng/mL Total Protein 5.6 L (6.1-8.0) g/dL Albumin 3.0 L (3.5-4.8) g/dL Globulin 2.6 (2.50-4.10) g/dL Albumin/Globulin Ratio 1.10 L (1.3-2.0) mg/g - EKG Data Rate: Bradycardia EKG Shows Normal: Sinus Rhythm - EKG Data EKG Interpretation: No Acute Change AFib Stroke Risk Screening - AFib Stroke Risk (CHADS-VASc) Atrial Fibrillation Ischemic Stroke Risk Factors: Diabetes Mellitus, Vascular Disease CHADS-VASc Score (A-Fib Stroke Risk Score): 2 CHADS-VASc Risk: High Risk Assessment and Plan - Time Time Spent With Patient: 15-25 Minutes (one on one interaction with the patient was 20 minutes and included examination, discussion of patient's condition and plan.)
[2017-03-12 11:18] VITALS: RESP 22; TEMP 97.8
--- NOTE | 2017-03-12 11:27 | PDOC(PROG) ---
Date and Time of Service: 12 march 2017, 1030 hrs Interval History: Subjective: Patient states his pain is significantly improved. He states that there is still some residual sharp pain in the inferior portion of his sternotomy incision. Shortness of breath, cough, nausea vomiting or diarrhea, no fever chills or sweats no headaches. Objective: CBC shows white count of 6, hemoglobin and hematocrit are low at 11 and 36. Serial cardiac enzymes are negative. Assessment: #1 chest pain, improved. Likely related to sternotomy incision. # 2 Grief reaction. Plan: Discharge home and follow-up with cardiology. Lexapro prescribed. Follow -up with primary care physician. Prior to discharge consultation with [facility] counselor. Objective : Data - Labs CBC and BMP: 03/12/17 07:20 03/12/17 06:39 Labs - Last 24 Hours: Laboratory Results 03/12/17 03/12/17 03/12/17 Range/Units 02:03 06:39 07:20 WBC 6.17 (4.8-10.8) 10^3/uL RBC 4.67 L (4.70-6.10) 10^6/uL Hgb 11.3 L (14.0-18.0) g/dL Hct 36.5 L (42.0-52.0) % MCV 78.2 L (80-90) FL MCH 24.2 L (27-31) PG MCHC 31.0 L (33-37) g/dL RDW Std Deviation 49.0 (39-50) fL RDW Coeff of [place] 17.5 H (11.5-14.5) % Plt Count 242 (140-350) 10*3/uL MPV 10.4 (7.4-12.2) FL Immature Gran % (Auto) 0.6 (0-5) % Neut % (Auto) 61.6 (50-80) % Lymph % (Auto) 21.9 (10-50) % [place] % (Auto) 11.0 (5-15) % Eos % (Auto) 4.1 (0-8) % Baso % (Auto) 0.8 (0-1) % Immature Gran # (Auto) 0.04 10*3/UL Neut # (Auto) 3.80 10*3/UL Lymph # (Auto) 1.35 10*3/uL [place] # (Auto) 0.68 (0.3-0.8) 10*3/UL Eos # (Auto) 0.25 10*3/UL Baso # (Auto) 0.05 10*3/UL WBC Morphology Comment Normal morphology (NORM) Plt Morphology Comment Normal morphology (NORM) RBC Morph Comment Normal morphology (NORM) Sodium 136 (135-145) meq/L Potassium 3.8 (3.8-5.2) meq/L Chloride 104 (98-112) meq/L Carbon Dioxide 25 (23-33) meq/L Anion Gap 7 (5-20) BUN 25 H (7-22) mg/dL Creatinine 0.9 (0.70-1.50) mg/dL Estimated GFR > 60 (>60 ml/min/1.73m(2)) BUN/Creatinine Ratio 27.77 H (6-20) Glucose 120 H (78-110) mg/dL Calculated Osmolality 286.0 (267-292) mOsm/kg Calcium 8.8 (8.7-10.7) mg/dL Total Bilirubin 0.3 (0.3-1.2) mg/dL AST 14 L (21-57) IU/L ALT 26 (21-72) IU/L Alkaline Phosphatase 67 (38-126) IU/L CK-MB (CK-2) 1.41 (0.00-5.00) NG/ML Troponin I < 0.012 < 0.012 (< 0.040) ng/mL Total Protein 5.6 L (6.1-8.0) g/dL Albumin 3.0 L (3.5-4.8) g/dL Globulin 2.6 (2.50-4.10) g/dL Albumin/Globulin Ratio 1.10 L (1.3-2.0) mg/g
[2017-03-12] MEDS ORDERED: GABAPENTIN 100 MG CAPSULE PO SCH ×2 (21:00)
[2017-03-12] MEDS ORDERED: ATORVASTATIN 40 MG TABLET PO SCH ×2 (21:00)
== END 2017-03-12 16:31 | disposition home or self-care (01) ==
LOC: ER 18:59 → MED/SURG 21:59
PROVIDERS: ADMIT Family Medicine; ATTEND Family Medicine
DX: R07.9 Chest pain, unspecified (principal); Z98.890 Other specified postprocedural states; T81.89XS Other complications of procedures, not elsewhere classified, sequela; F43.20 Adjustment disorder, unspecified
CPT/HCPCS: 36415; 71010; 71275; 80053 ×2; 82553 ×2; 83735; 84484 ×2; 85025 ×2; 85379; 90791 ×2; 93005; 93010; 94761; 96374 ×2; 99284 ×2; J1815 ×2; J1885; J3490; J7030

== ENCOUNTER → 2017-03-26 | Outpatient (CLI) | payer OTHER | LOC: MMPC 09:00 | PROVIDERS: ATTEND Family Medicine | DX: G62.9 Polyneuropathy, unspecified (principal); E11.9 Type 2 diabetes mellitus without complications; I25.10 Atherosclerotic heart disease of native coronary artery without angina pectoris; Z95.1 Presence of aortocoronary bypass graft; Z79.4 Long term (current) use of insulin | CPT/HCPCS: 99214; G0463 ==

== ENCOUNTER 2017-05-09 10:12 | Inpatient (IN) ==
[2017-05-09] MEDS ORDERED: Sodium Chloride 0.9% 1,000 ML PRIMARY IV ONE (10:27)
[2017-05-09] MEDS ORDERED: ONDANSETRON 4 MG/2 ML VIAL IVP ONE (10:27)
[2017-05-09] MEDS ORDERED: NORMAL SALINE 10 ML SYRINGE FLUSH IVP PRN (10:27)
[2017-05-09] MEDS ORDERED: MORPHINE SULFATE 4 MG/1 ML IVP ONE ×2 (10:27→13:32)
--- NOTE | 2017-05-09 10:59 | PDOC ---
Abdomen/Flank HPI - General Chief Complaint: Abdomen Pain Stated Complaint: ABD PAIN Date Seen by Provider: 05/09/17 Time Seen by Provider: 10:20 Source: POSITIVE: Patient Exam Limitations: POSITIVE: No limitations Nurse's Notes Reviewed & Considered: Yes - History of Present Illness Initial Comments: The patient is a 62-year-old male who presents to the emergency department with complaints of abdominal pain. He states that 2 days ago he had onset of lower abdominal pain and cramping. He states that onset of symptoms were after lifting something that he was taking out to the garbage. He thought that maybe he had constipation and has tried taking some stool softeners. He states that he is able to have small BMs that are formed and this relieves his pain temporarily however he continues to have pain. He currently rates his pain about an 8 out of 10. He has not had any associated vomiting. He states he has had some mild increased difficulty with urination. He denies blood in his stool or black stools. He denies fevers or chills. He denies any associated chest pain or shortness of breath. He has had previous appendectomy at age 8 as well as an exploratory surgery at age 12 for undescended testicles. He also had bypass surgery in November of this year. He has had previous colonoscopy however this was about 10 years ago. He does not have any known history of diverticulum or diverticulitis. He is diabetic and states that his blood sugar this morning was 130. - Patient Home Medications Home Medications: Home Medications Aspirin 81 mg PO DAILY tab 04/05/16 Albuterol Neb Soln 0.083% 1 ea INH Q3-4H PRN #1 box 01/30/17 Albuterol Sulfate [Proair Hfa] 1 - 2 puff INH Q4-6H #3 inhaler 01/30/17 Allopurinol 1 tab PO QD #90 tab 01/30/17 Cholecalciferol (Vitamin D3) [Vitamin D3] 2,000 unit PO DAILY #90 cap 01/30/17 Citalopram Hydrobromide [Celexa] 1 tab PO DAILY #90 tab 01/30/17 Furosemide [Lasix] 1 tab PO DAILY #90 tab 01/30/17 Gabapentin 1 - 2 cap PO QHS #180 cap 01/30/17 Insulin Aspart [Novolog Flexpen] 7 unit SUBCUT AC #2 unit 01/30/17 Insulin Detemir [Levemir Flextouch] 40 unit SQ DAILY #1 box 01/30/17 [place]-3/Dha/Epa/Fish Oil [Fish Oil 1,000 Mg Softgel] 1,000 mg PO QD cap Omeprazole 1 cap PO DAILY #90 cap 01/30/17 Tamsulosin HCl 1 cap PO QHS #90 cap 01/30/17 Blood Sugar Diagnostic [Truetrack Test Strip] 1 ea IN ACHS #100 strip 02/12/17 Pen Needle, Diabetic [Trueplus Pen Needle] 1 ea MC QID #120 ea 02/12/17 Potassium Chloride 1 tab PO DAILY tab 03/26/17 Clotrimazole/Betamet Diprop [Clotrimazole-Betamethasone Lot] 1 ml TOPICAL BID # 1 bottle 04/10/17 atorvastatin 40 mg tablet 40 mg PO QHS #90 tab 04/30/17 hydrocodone 7.5 mg-acetaminophen 325 mg tablet 1 tab PO Q4H PRN #90 tab metoprolol succinate ER 25 mg tablet,extended release 24 hr 25 mg PO DAILY #90 tab 04/30/17 - Patient Allergies Allergies/Adverse Reactions: Allergies 3 Allergy/AdvReac Type Severity Reaction Status Date / Time No Known Drug Allergies Allergy NOT Verified 05/09/17 10:58 APPLICABLE Past Medical History - heen HEENT History: Denies History Cardiovascular History: Hypertension, Hyperlipidemia, Other (please comment) Additional Cardiovasular History: QUADRUPLE BYPASS 12/09/16. Respiratory History: Asthma, COPD, Sleep Apnea, Home Oxygen Use, Other (please comment) Additional Respiratory History: BIPAP AND 2L OXYGEN AT NIGHT Gastrointestinal History: Denies History Genitourinary History: Denies History Endocrine History: Type 2 Diabetes (insulin) Musculoskeletal History: Carpal Tunnel, Other (please comment) Prosthesis or Implant: No Additional Musculoskeletal History: BILATERAL CARPAL TUNNEL SURGERY X 2. LEFT KNEE SCOPE Neurological History: Denies History Blood Disorders: Denies History Psychiatric History: Denies History Cancer History: Denies History History of MDRO: Yes Other Type of MDRO: nares Alcohol Use: None In the Past 12 Months, Have Used or Abuse Any Substance: Opiate Pain Medication Previous Surgical History: No Type / Date of Surgery: APPENDECTOMY. BILATERAL CARPAL TUNNEL X2. LEFT KNEE SCOPE. QUAD BYPASS 12/09/16 Significant Family History: No pertinent family hx Past Medical History Reviewed: Reviewed - No Changes ROS - Limitations ROS Limitations: No Limitations Constitution: DENIES: Chills, Fever Cardiovascular: REPORTS: Denies Cardiac Symptoms Respiratory: REPORTS: Denies Resp Symptoms Neurological: REPORTS: Denies Neuro Symptoms Gastrointestinal: REPORTS: Abdominal Pain, Other (Has been passing small formed stools, 6-8 through the night last night). DENIES: Nausea, Vomitting, Diarrhea Genitourinary: REPORTS: Denies Symptoms Eyes: REPORTS: Denies Symptoms ENT: REPORTS: Denies Symptoms Skin: REPORTS: Rash Abdominal/Flank Pain PE - General Appearance General Appearance: POSITIVE: Alert, Cooperative, No Acute Distress - HEENT HEENT: POSITIVE: Head Inspection Nml, Eyes Inspection Nml, Ears Inspection Nml, Pharynx Inspect. Nml - Neck Neck: POSITIVE: Normal Inspection - Respiratory Respiratory: POSITIVE: No Respiratory Distress, Breath Sounds Normal - Cardiovascular Cardiovascular: POSITIVE: Regular Rate and Rhythm, Heart Sounds Normal - Abdomen Abdomen: Soft: (All Quadrants), Normal Bowel Sounds: (All Quadrants), No Palpabale Mass: (All Quadrants) Additional Abdominal Details: He does have generalized lower abdominal tenderness without guarding or rebound tenderness - Skin Skin: POSITIVE: Intact, No Rash - Extremities Extremity: Normal ROM: (All Extremities), Normal Inspection: (All Extremities) - Neurological Neurological: POSITIVE: Oriented X3, Motor Normal, Sensation Normal Abdomen Progress - Results Reviewed by me Xrays/CTs/US Reviewed by me: Yes Discussed with Radiologist: Yes Radiology Findings: CT scan of the abdomen and pelvis with IV contrast reveals significant sigmoid diverticulosis with evidence of sigmoid diverticulitis, there is no evidence of perforation or obstruction per radiologist. Lab Results Reviewed by Me: Yes CBC and BMP: 05/09/17 10:45 05/09/17 10:45 - Patient's Progress MDM / ED Course: Shortly after arrival an IV was established. The patient was rating his pain an 8 out of 10 on arrival. He received 4 mg of morphine and 4 mg of Zofran IV after which she reported improvement in pain. After CT the patient's pain returned and he received a second dose of morphine. His lab work reveals a mildly elevated white count and elevated CRP. His CT scan shows evidence of sigmoid diverticulitis without perforation or obstruction. These findings were discussed with the patient. Treatment options were discussed including outpatient versus inpatient. The patient states that he lives alone in [place] and has been absolutely miserable at home. He is still having significant pain. Decision was made to admit for initial treatment. Dr. Escobar was contacted and has agreed to admit the patient for further care. The patient was started on Invanz 1 g IV. - Consult Counseled: POSITIVE: Patient, RE: Lab Results, RE: Radiology Results, RE: DX Patient Care Time - Estimated PCT Patient Care Time (In Minutes): 35 Vital Signs - VS Reviewed Vital Signs Reviewed: Yes Discharge Clinical Impression: Diverticulitis Discharge Disposition: Admit to Inpatient Condition: Stable Date Decision to Admit to Inpatient: 05/09/17 Time Decision to Admit to Inpatient: 13:20
[2017-05-09 11:06] LABS: BASOPHILS # (AUTO) 0.04 10*3/UL; BASOPHILS % (AUTO) 0.4 % (0-1); EOSINOPHILS # (AUTO) 0.11 10*3/UL; Hematocrit [HCT] 37.5 % (42.0-52.0); Hemoglobin [HGB] 11.9 g/dL (14.0-18.0); MEAN CORPUSCULAR HEMOGLOBIN 23.5 PG (27-31); MEAN CORPUSCULAR HGB CONC 31.7 g/dL (33-37); MEAN CORPUSCULAR VOLUME 74.1 FL (80-90); MEAN PLATELET VOLUME 10.9 FL (7.4-12.2); MONOCYTES # (AUTO) 1.41 10*3/UL (0.3-0.8); MONOCYTES % (AUTO) 12.3 % (5-15); NEUTROPHILS % (AUTO) 74.4 % (50-80); RED BLOOD COUNT 5.06 10^6/uL (4.70-6.10)
[2017-05-09 11:07] LABS: PLATELET MORPHOLOGY COMMENT NORMAL MORPHOLOGY (NORM); RBC MORPHOLOGY COMMENT NORMAL MORPHOLOGY (NORM); WBC MORPHOLOGY COMMENT NORMAL MORPHOLOGY (NORM)
[2017-05-09 11:09] LABS: BILIRUBIN,URINE NEGATIVE (NEG); CLARITY,URINE CLEAR (CLEAR); COLOR,URINE YELLOW (Y); GLUCOSE, URINE (UA) NEGATIVE (NEG); NITRATE,URINE NEGATIVE (NEG); OCCULT BLOOD,URINE SMALL (NEG); PH,URINE 6.5 (5.0-8.5); PROTEIN,URINE 30 mg/dl (NEG); UROBILINOGEN,URINE 0.2 EU/dL (0.2)
[2017-05-09 11:21] LABS: BLOOD UREA NITROGEN 23 mg/dL (7-22); BUN/CREATININE RATIO 25.55 (6-20); LIPASE 53 IU/L (23-300); SERUM ALBUMIN 4.1 g/dL (3.5-4.8)
[2017-05-09 11:22] LABS: RBC,URINE 0-3 /hpf; URINE SAMPLE TYPE CLEAN CATCH URINE
[2017-05-09 11:23] LABS: SQUAMOUS EPITHELIAL CELL,UR RARE
--- NOTE | 2017-05-09 12:55 | DI ---
CT Abdomen/Pelvis W Contrast,05/09/2017 10:27 AM: Clinical History: Abdominal pain Previous Exam: None at this facility. Findings: Multiple helically acquired CT images are obtained through the abdomen and pelvis following intraveno us demonstration of 90 cc of Isovue 300, and demonstrate clear lung bases. The liver, spleen, pancreas, adrenals and gallbladder are unremarkable. The left kidney is normal. Th ere is a 3.2 cm simple cyst noted in the inferior portion of the right kidney. There are multiple colonic diverticula with an inflamed diverticulum involving the sigmoid colon with pericolonic fat stranding. There is no free air nor free fluid. There is no evidence of abscess. Diffuse mild degenerative changes are noted of the lumbar spine and visualized portions of the thorac ic spine. Impression: Acute sigmoid diverticulitis without evidence of abscess nor perforation.
[2017-05-09] MEDS ORDERED: Ertapenem Inj 1 GM in Sodium Chloride 0.9% 100 ML IV ONE (13:01)
--- NOTE | 2017-05-09 13:36 | PDOC ---
HPI - History of Present Illness History of Present Illness: Very nice 62-year-old gentleman sensitive ER today complaints of abdominal pain and cramping he has been having small bowel movements and pain but he got bad enough for him to be seen in the ER is rated about 8 out of 10 in the ER dosed with diverticulitis by CT scan abdomen and pelvis medical history significant for bypass surgery surgery in November of this year colonoscopy 10 years ago and he also has diabetes and insulin Past Medical History Medical History: Recent coronary artery bypass grafting in November 2016. Diabetes , asthma, morbid obesity, elevated cholesterol, hypertension, coronary artery disease. He needs a CABG but has to lose some weight first according to cardiology Surgical History: 1. Appendectomy. 2. Exploratory surgery for undescended testes. 3. Coronary arterial bypass grafting Pertinent Family History: Significant for stroke and pneumonia. His mother the day of pneumonia. Past Social History: Former smoker. Does not drink alcohol. Has no family. 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 No children. Tobacco Use: Never Smoker In the Past 12 Months, Have Used or Abuse Any of the Following Substance: Opiate Pain Medication Medication / Allergies Home Medications: Home Medications Medication Instructions Recorded Confirmed Type Aspirin 81 mg PO DAILY tab 04/05/16 05/09/17 History Albuterol Neb Soln 0.083% 1 ea INH Q3-4H PRN #1 box 01/30/17 05/09/17 History Albuterol Sulfate [Proair Hfa] 1 - 2 puff INH Q4-6H #3 inhaler 01/30/17 Rx Allopurinol 1 tab PO QD #90 tab 01/30/17 05/09/17 Rx Cholecalciferol (Vitamin D3) 2,000 unit PO DAILY #90 cap 01/30/17 05/09/17 Rx [Vitamin D3] Citalopram Hydrobromide [Celexa] 1 tab PO DAILY #90 tab 01/30/17 05/09/17 Rx Furosemide [Lasix] 1 tab PO DAILY #90 tab 01/30/17 05/09/17 Rx Gabapentin 1 - 2 cap PO QHS #180 cap 01/30/17 05/09/17 Rx Insulin Aspart [Novolog Flexpen] 7 unit SUBCUT AC #2 unit 01/30/17 05/09/17 Rx Insulin Detemir [Levemir Flextouch] 40 unit SQ DAILY #1 box 01/30/17 05/09/17 Rx [place]-3/Dha/Epa/Fish Oil [Fish Oil 1,000 mg PO QD cap 01/30/17 05/09/17 History 1,000 Mg Softgel] Omeprazole 1 cap PO DAILY #90 cap 01/30/17 05/09/17 Rx Tamsulosin HCl 1 cap PO QHS #90 cap 01/30/17 05/09/17 Rx Blood Sugar Diagnostic [Truetrack 1 ea IN ACHS #100 strip 02/12/17 05/09/17 Rx Test Strip] Pen Needle, Diabetic [Trueplus Pen 1 ea MC QID #120 ea 02/12/17 05/09/17 Rx Needle] Potassium Chloride 1 tab PO DAILY tab 03/26/17 05/09/17 History Clotrimazole/Betamet Diprop 1 ml TOPICAL BID #1 bottle 04/10/17 Clinic [Clotrimazole-Betamethasone Lot] atorvastatin 40 mg tablet 40 mg PO QHS #90 tab 04/30/17 05/09/17 Rx hydrocodone 7.5 mg-acetaminophen 1 tab PO Q4H PRN #90 tab 04/30/17 05/09/17 Rx 325 mg tablet metoprolol succinate ER 25 mg 25 mg PO DAILY #90 tab 04/30/17 05/09/17 Rx tablet,extended release 24 hr Allergies/Adverse Reactions: Allergies 3 Allergy/AdvReac Type Severity Reaction Status Date / Time No Known Drug Allergies Allergy NOT Verified 05/09/17 10:58 APPLICABLE Review of Systems - Review of Systems All Systems: Reviewed & No Additional Complaints Except as Stated - Mouth/Throat Mouth/Throat Exam: DENIES: Negative System Review, Dental Problems, Oral Ulcers , Sore Throat, Hoarseness, Dysphagia, Dental Pain, Other, See HPI - Cardiovascular Cardiovascular: DENIES: Negative System Review, Chest Pain, Edema, Syncope, Palpitations, Orthopnea, Paroxysmal Nocturnal Dyspnea, Other, See HPI - Gastrointestinal Gastrointestinal / Abdominal: REPORTS: Nausea, Abdominal Pain, Bloating. DENIES : Bloody Stool Exam - Vitals Vital Signs: Vital Signs Temperature 96.4 F Temperature Source Temporal Artery Scan Pulse Rate [Pulse Oximeter] 68 Respiratory Rate 17 Blood Pressure [Left Arm] 136/74 Pulse Ox 95 Oxygen Delivery Method Room Air Height 6 ft Weight 350 lb - General General Appearance: No Acute Distress, Cooperative - Head Head Exam: Normal Inspection, Normocephalic, Atraumatic - Eye Eye Exam: POSITIVE: Normal Appearance, PERRL, EOMI - Respiratory Respiratory Exam: POSITIVE: Clear to Auscultation - Bilaterally, Breathing Non Labored, Normal To Percussion - Cardiovascular Cardiovascular Exam: POSITIVE: RRR, No Murmur, No Clicks - GI/Abdominal GI/Abdominal Exam: NEGATIVE: Guarding, Rebound, Rigid Additional GI/Abdominal Exam Details: Some mild pain left lower quadrant Results - Labs CBC and BMP: 05/09/17 10:45 05/09/17 10:45 Assessment and Plan - Patient Problems (1) Diverticulitis Current Visit: Yes Status: Acute Comment: Clear liquid diet invanz 1 g daily Code(s): K57.92 - Diverticulitis of intestine, part unspecified, without perforation or abscess without bleeding (2) Diabetes Current Visit: No Status: Acute Comment: Old insulin check sugars before meals and at bedtime insulin sliding scale Code(s): E11.9 - Type 2 diabetes mellitus without complications Qualifiers:
[2017-05-09] MEDS ORDERED: LIDOCAINE W/ SODIUM BICARB 0.5 ML SYR SUBD PRN (14:01)
[2017-05-09] MEDS ORDERED: Insulin Sliding Scale Protocol SUBCUT PRN (14:01)
[2017-05-09] MEDS ORDERED: ASPIRIN 81 MG (BABY) CHEWABLE TABLET PO SCH (14:01)
[2017-05-09] MEDS ORDERED: DEXTROSE 31 GM GEL PO PRN (14:01)
[2017-05-09] MEDS ORDERED: Glucagon Inj Vial 1 MG/ML VIAL IM PRN (14:01)
[2017-05-09] MEDS ORDERED: ONDANSETRON 4 MG/2 ML VIAL IVP PRN (14:01)
[2017-05-09] MEDS ORDERED: DEXTROSE 50%-WATER SYRINGE 50 ML SYRINGE IVP PRN (14:01)
[2017-05-09] MEDS: Insulin Lispro Flexpen 300 UNIT/3 ML INSULN.PEN SUBCUT SCH ×2 (16:16→20:24)
[2017-05-09] MEDS: KETOROLAC 15 MG/1 ML VIAL IVP PRN ×2 (17:39→23:43)
[2017-05-09] MEDS: HYDROcodone-APAP 5 MG -325 MG TABLET PO PRN (19:02)
[2017-05-09] MEDS: CLOTRIMAZOLE TOPICAL SCH (20:23)
[2017-05-09] MEDS: BETAMET DIPROP TOPICAL SCH (20:23)
[2017-05-09] MEDS: TAMSULOSIN 0.4 MG CAPSULE PO SCH (20:24)
[2017-05-09] MEDS: ATORVASTATIN 40 MG TABLET PO SCH (20:25)
[2017-05-09] MEDS: GABAPENTIN 100 MG CAPSULE PO SCH (20:25)
[2017-05-10 05:10] LABS: BASOPHILS # (AUTO) 0.03 10*3/UL; BASOPHILS % (AUTO) 0.4 % (0-1); EOSINOPHILS # (AUTO) 0.26 10*3/UL; EOSINOPHILS % (AUTO) 3.6 % (0-8); Hemoglobin [HGB] 10.3 g/dL (14.0-18.0); LYMPHOCYTES # (AUTO) 1.07 10*3/uL; MEAN CORPUSCULAR HEMOGLOBIN 23.1 PG (27-31); MEAN CORPUSCULAR HGB CONC 30.3 g/dL (33-37); MEAN CORPUSCULAR VOLUME 76.2 FL (80-90); MEAN PLATELET VOLUME 11.7 FL (7.4-12.2); MONOCYTES # (AUTO) 0.87 10*3/UL (0.3-0.8); MONOCYTES % (AUTO) 11.9 % (5-15); NEUTROPHILS # (AUTO) 5.02 10*3/UL; NEUTROPHILS % (AUTO) 68.9 % (50-80); RED BLOOD COUNT 4.46 10^6/uL (4.70-6.10)
[2017-05-10 05:12] LABS: PLATELET MORPHOLOGY COMMENT NORMAL MORPHOLOGY (NORM); RBC MORPHOLOGY COMMENT NORMAL MORPHOLOGY (NORM); WBC MORPHOLOGY COMMENT NORMAL MORPHOLOGY (NORM)
[2017-05-10 05:18] LABS: BLOOD UREA NITROGEN 24 mg/dL (7-22); LIPASE 33 IU/L (23-300); SERUM ALBUMIN 3.3 g/dL (3.5-4.8)
[2017-05-10] MEDS: FUROSEMIDE 20 MG TABLET PO SCH (07:00)
[2017-05-10] MEDS: HYDROcodone-APAP 5 MG -325 MG TABLET PO PRN ×3 (07:00→19:14)
[2017-05-10] MEDS: Insulin Lispro Flexpen 300 UNIT/3 ML INSULN.PEN SUBCUT SCH ×4 (08:28→23:58)
[2017-05-10] MEDS: POTASSIUM CHLORIDE 20 MEQ TAB PO SCH (09:02)
[2017-05-10] MEDS: ASPIRIN 81 MG (BABY) CHEWABLE TABLET PO SCH (09:03)
[2017-05-10] MEDS: CHOLECALCIFEROL 1000 IU TABLET PO SCH (09:03)
[2017-05-10] MEDS: ALLOPURINOL 300 MG TABLET PO SCH (09:03)
[2017-05-10] MEDS: OMEPRAZOLE 20 MG CAPSULE PO SCH (09:03)
[2017-05-10] MEDS: METOPROLOL SUCCINATE 25 MG SR 24H TABLET PO SCH (09:04)
[2017-05-10] MEDS: CITALOPRAM 20 MG TABLET PO SCH (09:04)
[2017-05-10] MEDS: CLOTRIMAZOLE TOPICAL SCH ×2 (13:39→23:58)
[2017-05-10] MEDS: BETAMET DIPROP TOPICAL SCH ×2 (13:39→23:58)
[2017-05-10] MEDS: Ertapenem Inj 1 GM in Sodium Chloride 0.9% 100 ML IV SCH (13:39)
[2017-05-10] MEDS: NORMAL SALINE 10 ML SYRINGE FLUSH IVP PRN (13:43)
--- NOTE | 2017-05-10 15:25 | PDOC(PROG) ---
Date and Time of Service: 05/10/2017, 1524 Interval History: No chest pain, shortness breath, nausea or vomiting. Patient states his abdominal pain is improved. From an intrauterine 9 to a 4 or 5, but he states he thinks some of that is related to pain medications. He would like to eat a regular diet. Objective : Data - Labs CBC and BMP: 05/10/17 04:35 05/10/17 04:35 Objective : Exam - General General Appearance: No Acute Distress, Cooperative Additional General Exam Details: Vital Signs (24 hrs) Temp Pulse Resp BP Pulse Ox 05/10/17 12:50 97.4 F 51 L 20 97/54 96 05/10/17 08:35 97.9 F 54 L 22 101/47 87 05/10/17 05:04 94 05/10/17 04:35 97.7 F 57 L 22 123/58 94 05/10/17 01:00 49 L 22 106/54 95 05/09/17 20:21 97.4 F 56 L 24 103/43 96 - Eye Eye Exam: No Scleral Icterus - ENT ENT Exam: Mucous Membranes Moist - Respiratory Respiratory Exam: Clear to Auscultation - Bilaterally, Breathing Non Labored - Cardiovascular Cardiovascular Exam: No Murmur, No Clicks, No Gallops, No Rubs, Bradycardia, No JVD - GI/Abdominal GI/Abdominal Exam: Normal Bowel Sounds, Non Tender, Non Distended, Soft - Extremities Extremities Exam: No Clubbing Present, No Edema Present, No Cyanosis Present - Neurological Neurological Exam: Alert, Oriented x 3, No Facial Droop, Speech Intact / Clear, Moves All Extremities Equally Assessment and Plan - Patient Problems (1) Diverticulitis Current Visit: Yes Status: Acute Code(s): K57.92 - Diverticulitis of intestine, part unspecified, without perforation or abscess without bleeding Qualifiers: Diverticulitis site: large intestine Diverticulitis bleeding: without bleeding Diverticulitis complication: without perforation or abscess Qualified Code(s): K57.32 - Diverticulitis of large intestine without perforation or abscess without bleeding (2) Type 2 diabetes mellitus with complication, with long-term current use of insulin Current Visit: Yes Status: Acute Onset Date: 10/02/16 Code(s): E11.8 - Type 2 diabetes mellitus with unspecified complications; Z79.4 - extermination inspector ( current) use of insulin (3) Coronary artery disease involving [place] coronary artery of [place] heart without angina pectoris Current Visit: Yes Status: Chronic Onset Date: 10/02/16 Code(s): I25.10 - Atherosclerotic heart disease of [place] coronary artery without angina pectoris (4) Asthma Current Visit: Yes Status: Chronic Code(s): J45.909 - Unspecified asthma, uncomplicated (5) Obesity Current Visit: Yes Status: Acute Code(s): E66.9 - Obesity, unspecified Qualifiers: Obesity type: due to excess calories Obesity classification: adult class 3 (BMI >= 40) Serious obesity comorbidity presence: with serious comorbidity Body mass index: BMI 45.0-49.9 Qualified Code(s): E66.09 - Other obesity due to excess calories; Z68.42 - Body mass index (BMI) 45.0-49.9, adult (6) Hypertension Current Visit: Yes Status: Chronic Code(s): I10 - Essential (primary) hypertension Qualifiers: Hypertension type: essential hypertension Qualified Code(s): I10 - Essential (primary) hypertension - Assessment / Plan Additional Assessment/Plan Details: Continue antibiotics, Invanz, day #2 today. Check CBC with differential and basic metabolic panel tomorrow. Continue pain medications. Advance diet. The patient can tolerate diet, his pain is not significantly worse, may consider undergoing to by mouth antibiotics tomorrow for at least 14 days and schedule a follow-up for surgery to evaluate extension of antibiotics and timing of potential outpatient colonoscopy to evaluate further. He is post- CABG by several months now, and has no signs of ischemic heart disease or exercise intolerance at this point.
[2017-05-10] MEDS: ATORVASTATIN 40 MG TABLET PO SCH (20:31)
[2017-05-10] MEDS: TAMSULOSIN 0.4 MG CAPSULE PO SCH (20:31)
[2017-05-10] MEDS: GABAPENTIN 100 MG CAPSULE PO SCH (20:31)
[2017-05-11] MEDS: HYDROcodone-APAP 5 MG -325 MG TABLET PO PRN ×4 (01:34→14:17)
[2017-05-11 05:25] LABS: BASOPHILS # (AUTO) 0.03 10*3/UL; BASOPHILS % (AUTO) 0.5 % (0-1); EOSINOPHILS # (AUTO) 0.24 10*3/UL; EOSINOPHILS % (AUTO) 3.7 % (0-8); Hematocrit [HCT] 34.2 % (42.0-52.0); Hemoglobin [HGB] 10.4 g/dL (14.0-18.0); LYMPHOCYTES # (AUTO) 0.97 10*3/uL; MEAN CORPUSCULAR HEMOGLOBIN 23.1 PG (27-31); MEAN CORPUSCULAR HGB CONC 30.4 g/dL (33-37); MEAN CORPUSCULAR VOLUME 75.8 FL (80-90); MEAN PLATELET VOLUME 11.5 FL (7.4-12.2); MONOCYTES # (AUTO) 0.78 10*3/UL (0.3-0.8); MONOCYTES % (AUTO) 12.1 % (5-15); NEUTROPHILS # (AUTO) 4.37 10*3/UL; RED BLOOD COUNT 4.51 10^6/uL (4.70-6.10)
[2017-05-11 05:47] LABS: BLOOD UREA NITROGEN 24 mg/dL (7-22); PLATELET MORPHOLOGY COMMENT NORMAL MORPHOLOGY (NORM); RBC MORPHOLOGY COMMENT NORMAL MORPHOLOGY (NORM); WBC MORPHOLOGY COMMENT NORMAL MORPHOLOGY (NORM)
[2017-05-11 05:48] LABS: SERUM ALBUMIN 3.4 g/dL (3.5-4.8)
[2017-05-11] MEDS: FUROSEMIDE 20 MG TABLET PO SCH (08:17)
[2017-05-11] MEDS: Insulin Lispro Flexpen 300 UNIT/3 ML INSULN.PEN SUBCUT SCH ×4 (08:18→21:00)
[2017-05-11] MEDS: KETOROLAC 15 MG/1 ML VIAL IVP PRN (08:28)
[2017-05-11] MEDS: NORMAL SALINE 10 ML SYRINGE FLUSH IVP PRN (08:28)
[2017-05-11] MEDS: CITALOPRAM 20 MG TABLET PO SCH (08:33)
[2017-05-11] MEDS: ALLOPURINOL 300 MG TABLET PO SCH (08:34)
[2017-05-11] MEDS: CHOLECALCIFEROL 1000 IU TABLET PO SCH (08:34)
[2017-05-11] MEDS: METOPROLOL SUCCINATE 25 MG SR 24H TABLET PO SCH (08:34)
[2017-05-11] MEDS: ASPIRIN 81 MG (BABY) CHEWABLE TABLET PO SCH (08:34)
[2017-05-11] MEDS: OMEPRAZOLE 20 MG CAPSULE PO SCH (08:34)
[2017-05-11] MEDS: POTASSIUM CHLORIDE 20 MEQ TAB PO SCH (08:34)
[2017-05-11] MEDS: BETAMET DIPROP TOPICAL SCH ×2 (09:32→22:07)
[2017-05-11] MEDS: CLOTRIMAZOLE TOPICAL SCH ×2 (09:32→22:07)
[2017-05-11] MEDS: Ertapenem Inj 1 GM in Sodium Chloride 0.9% 100 ML IV SCH (14:16)
--- NOTE | 2017-05-11 18:29 | PDOC(PROG) ---
Date and Time of Service: 05/11/2017, 1830 Interval History: No chest pain, no shortness breath, no nausea or vomiting. Patient states his abdominal pain is significantly improved, but he states he thinks some of that is attributable pain medications but it is better than yesterday. He states he has a cardiology appointment tomorrow at around 10:00 or so. Objective : Data - Labs CBC and BMP: 05/11/17 04:20 05/11/17 04:20 Additional Lab Results: Laboratory Results 05/09/17 05/09/17 05/09/17 Range/Units 10:45 10:45 10:45 WBC 11.42 H (4.8-10.8) 10^3/uL RBC 5.06 (4.70-6.10) 10^6/uL Hgb 11.9 L (14.0-18.0) g/dL Hct 37.5 L (42.0-52.0) % MCV 74.1 L (80-90) FL MCH 23.5 L (27-31) PG MCHC 31.7 L (33-37) g/dL RDW Std Deviation 53.1 H (39-50) fL RDW Coeff of [place] 20.1 H (11.5-14.5) % Plt Count 226 (140-350) 10*3/uL MPV 10.9 (7.4-12.2) FL Immature Gran % (Auto) 0.5 (0-5) % Neut % (Auto) 74.4 (50-80) % Lymph % (Auto) 11.4 (10-50) % [place] % (Auto) 12.3 (5-15) % Eos % (Auto) 1.0 (0-8) % Baso % (Auto) 0.4 (0-1) % Immature Gran # (Auto) 0.06 10*3/UL Neut # (Auto) 8.50 10*3/UL Lymph # (Auto) 1.30 10*3/uL [place] # (Auto) 1.41 H (0.3-0.8) 10*3/UL Eos # (Auto) 0.11 10*3/UL Baso # (Auto) 0.04 10*3/UL WBC Morphology Comment Normal morphology (NORM) Plt Morphology Comment Normal morphology (NORM) RBC Morph Comment Normal morphology (NORM) Sodium 138 (135-145) meq/L Potassium 4.0 (3.8-5.2) meq/L Chloride 101 (98-112) meq/L Carbon Dioxide 25 (23-33) meq/L Anion Gap 12 (5-20) BUN 23 H (7-22) mg/dL Creatinine 0.9 (0.70-1.50) mg/dL Estimated GFR > 60 (>60 ml/min/1.73m(2)) BUN/Creatinine Ratio 25.55 H (6-20) Glucose 102 (78-110) mg/dL Calculated Osmolality 289.0 (267-292) mOsm/kg Lactic Acid (0.70-2.10) MMOL/L Calcium 9.7 (8.7-10.7) mg/dL Total Bilirubin 0.9 (0.3-1.2) mg/dL AST 20 L (21-57) IU/L ALT 31 (21-72) IU/L Alkaline Phosphatase 98 (38-126) IU/L C-Reactive Protein 7.7 H (0.0-0.9) mg/dL Total Protein 7.4 (6.1-8.0) g/dL Albumin 4.1 (3.5-4.8) g/dL Globulin 3.3 (2.50-4.10) g/dL Albumin/Globulin Ratio 1.20 L (1.3-2.0) mg/g Amylase < 30 L (30-110) U/L Lipase 53 (23-300) IU/L Ur Collection Type Clean catch urine Urine Color Yellow (Y) Urine Clarity Clear (CLEAR) Urine pH 6.5 (5.0-8.5) Ur Specific [place] 1.010 (1.005-1.030) Urine Protein 30 A (NEG) mg/dl Urine Glucose (UA) Negative (NEG) mg/dL Urine Ketones Negative (NEG) Urine Occult Blood Small H (NEG) Urine Nitrate Negative (NEG) Urine Bilirubin Negative (NEG) Urine Urobilinogen 0.2 (0.2) EU/dL Ur Leukocyte Esterase Negative (NEG) Urine RBC 0-3 (NONE) /hpf Urine WBC None (NONE) Ur Squamous Epith Cells Rare (NONE) Ur Renal Epithelial Cell None (NONE) Urine Crystals None Urine Bacteria None (NONE) Urine Casts None (NONE) Urine Mucus None (NONE) Urine Trichomonas None (NONE) Urine Yeast None (NONE) Ur Culture Indicated? Culture not set 05/09/17 05/10/17 05/10/17 Range/Units 15:06 04:35 04:35 WBC 7.29 (4.8-10.8) 10^3/uL RBC 4.46 L (4.70-6.10) 10^6/uL Hgb 10.3 L (14.0-18.0) g/dL Hct 34.0 L (42.0-52.0) % MCV 76.2 L (80-90) FL MCH 23.1 L (27-31) PG MCHC 30.3 L (33-37) g/dL RDW Std Deviation 54.0 H (39-50) fL RDW Coeff of [place] 20.0 H (11.5-14.5) % Plt Count 171 (140-350) 10*3/uL MPV 11.7 (7.4-12.2) FL Immature Gran % (Auto) 0.5 (0-5) % Neut % (Auto) 68.9 (50-80) % Lymph % (Auto) 14.7 (10-50) % [place] % (Auto) 11.9 (5-15) % Eos % (Auto) 3.6 (0-8) % Baso % (Auto) 0.4 (0-1) % Immature Gran # (Auto) 0.04 10*3/UL Neut # (Auto) 5.02 10*3/UL Lymph # (Auto) 1.07 10*3/uL [place] # (Auto) 0.87 H (0.3-0.8) 10*3/UL Eos # (Auto) 0.26 10*3/UL Baso # (Auto) 0.03 10*3/UL WBC Morphology Comment Normal morphology (NORM) Plt Morphology Comment Normal morphology (NORM) RBC Morph Comment Normal morphology (NORM) Sodium 138 (135-145) meq/L Potassium 3.9 (3.8-5.2) meq/L Chloride 104 (98-112) meq/L Carbon Dioxide 24 (23-33) meq/L Anion Gap 10 (5-20) BUN 24 H (7-22) mg/dL Creatinine 1.0 (0.70-1.50) mg/dL Estimated GFR > 60 (>60 ml/min/1.73m(2)) BUN/Creatinine Ratio 24.00 H (6-20) Glucose 97 (78-110) mg/dL Calculated Osmolality 289.0 (267-292) mOsm/kg Lactic Acid 0.8 (0.70-2.10) MMOL/L Calcium 9.1 (8.7-10.7) mg/dL Total Bilirubin 0.7 (0.3-1.2) mg/dL AST 17 L (21-57) IU/L ALT 31 (21-72) IU/L Alkaline Phosphatase 76 (38-126) IU/L C-Reactive Protein (0.0-0.9) mg/dL Total Protein 6.3 (6.1-8.0) g/dL Albumin 3.3 L (3.5-4.8) g/dL Globulin 3.0 (2.50-4.10) g/dL Albumin/Globulin Ratio 1.10 L (1.3-2.0) mg/g Amylase 31 (30-110) U/L Lipase 33 (23-300) IU/L Ur Collection Type Urine Color (Y) Urine Clarity (CLEAR) Urine pH (5.0-8.5) Ur Specific [place] (1.005-1.030) Urine Protein (NEG) mg/dl Urine Glucose (UA) (NEG) mg/dL Urine Ketones (NEG) Urine Occult Blood (NEG) Urine Nitrate (NEG) Urine Bilirubin (NEG) Urine Urobilinogen (0.2) EU/dL Ur Leukocyte Esterase (NEG) Urine RBC (NONE) /hpf Urine WBC (NONE) Ur Squamous Epith Cells (NONE) Ur Renal Epithelial Cell (NONE) Urine Crystals Urine Bacteria (NONE) Urine Casts (NONE) Urine Mucus (NONE) Urine Trichomonas (NONE) Urine Yeast (NONE) Ur Culture Indicated? 05/11/17 05/11/17 Range/Units 04:20 04:20 WBC 6.43 (4.8-10.8) 10^3/uL RBC 4.51 L (4.70-6.10) 10^6/uL Hgb 10.4 L (14.0-18.0) g/dL Hct 34.2 L (42.0-52.0) % MCV 75.8 L (80-90) FL MCH 23.1 L (27-31) PG MCHC 30.4 L (33-37) g/dL RDW Std Deviation 52.6 H (39-50) fL RDW Coeff of [place] 19.4 H (11.5-14.5) % Plt Count 166 (140-350) 10*3/uL MPV 11.5 (7.4-12.2) FL Immature Gran % (Auto) 0.6 (0-5) % Neut % (Auto) 68.0 (50-80) % Lymph % (Auto) 15.1 (10-50) % [place] % (Auto) 12.1 (5-15) % Eos % (Auto) 3.7 (0-8) % Baso % (Auto) 0.5 (0-1) % Immature Gran # (Auto) 0.04 10*3/UL Neut # (Auto) 4.37 10*3/UL Lymph # (Auto) 0.97 10*3/uL [place] # (Auto) 0.78 (0.3-0.8) 10*3/UL Eos # (Auto) 0.24 10*3/UL Baso # (Auto) 0.03 10*3/UL WBC Morphology Comment Normal morphology (NORM) Plt Morphology Comment Normal morphology (NORM) RBC Morph Comment Normal morphology (NORM) Sodium 137 (135-145) meq/L Potassium 4.3 (3.8-5.2) meq/L Chloride 102 (98-112) meq/L Carbon Dioxide 24 (23-33) meq/L Anion Gap 11 (5-20) BUN 24 H (7-22) mg/dL Creatinine 1.0 (0.70-1.50) mg/dL Estimated GFR > 60 (>60 ml/min/1.73m(2)) BUN/Creatinine Ratio 24.00 H (6-20) Glucose 115 H (78-110) mg/dL Calculated Osmolality 288.0 (267-292) mOsm/kg Lactic Acid (0.70-2.10) MMOL/L Calcium 9.1 (8.7-10.7) mg/dL Total Bilirubin 0.5 (0.3-1.2) mg/dL AST 16 L (21-57) IU/L ALT 30 (21-72) IU/L Alkaline Phosphatase 81 (38-126) IU/L C-Reactive Protein (0.0-0.9) mg/dL Total Protein 6.4 (6.1-8.0) g/dL Albumin 3.4 L (3.5-4.8) g/dL Globulin 3.0 (2.50-4.10) g/dL Albumin/Globulin Ratio 1.10 L (1.3-2.0) mg/g Amylase (30-110) U/L Lipase (23-300) IU/L Ur Collection Type Urine Color (Y) Urine Clarity (CLEAR) Urine pH (5.0-8.5) Ur Specific [place] (1.005-1.030) Urine Protein (NEG) mg/dl Urine Glucose (UA) (NEG) mg/dL Urine Ketones (NEG) Urine Occult Blood (NEG) Urine Nitrate (NEG) Urine Bilirubin (NEG) Urine Urobilinogen (0.2) EU/dL Ur Leukocyte Esterase (NEG) Urine RBC (NONE) /hpf Urine WBC (NONE) Ur Squamous Epith Cells (NONE) Ur Renal Epithelial Cell (NONE) Urine Crystals Urine Bacteria (NONE) Urine Casts (NONE) Urine Mucus (NONE) Urine Trichomonas (NONE) Urine Yeast (NONE) Ur Culture Indicated? Objective : Exam - General General Appearance: No Acute Distress, Cooperative Additional General Exam Details: Vital Signs (24 hrs) Temp Pulse Resp BP BP Pulse Ox 05/11/17 16:11 97.4 F 54 L 20 115/65 92 05/11/17 11:10 97.3 F 50 L 20 123/61 96 05/11/17 08:14 98.3 F 59 L 20 147/62 91 05/11/17 05:19 96 05/11/17 04:28 98.0 F 58 L 20 117/55 96 05/11/17 01:00 98.8 F 55 L 18 139/65 97 05/10/17 20:54 98.5 F 52 L 20 118/64 96 05/10/17 19:00 52 L - ENT ENT Exam: Mucous Membranes Moist - Respiratory Respiratory Exam: Clear to Auscultation - Bilaterally, Breathing Non Labored - Cardiovascular Cardiovascular Exam: RRR, No Murmur, No Clicks, No Gallops, No Rubs, No JVD - GI/Abdominal GI/Abdominal Exam: Normal Bowel Sounds, Non Tender, Non Distended, Soft - Extremities Extremities Exam: No Clubbing Present, No Cyanosis Present Additional Extremities Exam Details: Trace edema in lower extremities. - Neurological Neurological Exam: Alert, Oriented x 3, No Facial Droop, Speech Intact / Clear, Moves All Extremities Equally - Psychiatric Psychiatric Exam: Normal Mood, Flat Affect Assessment and Plan - Patient Problems (1) Diverticulitis Current Visit: Yes Status: Acute Code(s): K57.92 - Diverticulitis of intestine, part unspecified, without perforation or abscess without bleeding Qualifiers: Diverticulitis site: large intestine Diverticulitis bleeding: without bleeding Diverticulitis complication: without perforation or abscess Qualified Code(s): K57.32 - Diverticulitis of large intestine without perforation or abscess without bleeding (2) Type 2 diabetes mellitus with complication, with long-term current use of insulin Current Visit: Yes Status: Acute Onset Date: 10/02/16 Code(s): E11.8 - Type 2 diabetes mellitus with unspecified complications; Z79.4 - moth exterminator ( current) use of insulin (3) Coronary artery disease involving [place] coronary artery of [place] heart without angina pectoris Current Visit: Yes Status: Chronic Onset Date: 10/02/16 Code(s): I25.10 - Atherosclerotic heart disease of [place] coronary artery without angina pectoris (4) Asthma Current Visit: Yes Status: Chronic Code(s): J45.909 - Unspecified asthma, uncomplicated (5) Obesity Current Visit: Yes Status: Acute Code(s): E66.9 - Obesity, unspecified Qualifiers: Obesity type: due to excess calories Obesity classification: adult class 3 (BMI >= 40) Serious obesity comorbidity presence: with serious comorbidity Body mass index: BMI 45.0-49.9 Qualified Code(s): E66.09 - Other obesity due to excess calories; Z68.42 - Body mass index (BMI) 45.0-49.9, adult (6) Hypertension Current Visit: Yes Status: Chronic Code(s): I10 - Essential (primary) hypertension Qualifiers: Hypertension type: essential hypertension Qualified Code(s): I10 - Essential (primary) hypertension - Assessment / Plan Additional Assessment/Plan Details: On day 3 of 14 minimum for diverticulitis. Patient needs colonoscopy, and we' ll try to arrange tomorrow as an outpatient with Dr. Amaya we'll try and arrange a 2 week follow-up for the diverticulitis, and colonoscopy in about 8 weeks. Switch to oral antibiotics, and advance diet to regular diet. No further IV fluids. Cut medications for pain back. Probable discharge tomorrow if toleration of by mouth medications.
[2017-05-11] MEDS ORDERED: IBUPROFEN 600 MG TABLET PO PRN (18:30)
[2017-05-11] MEDS: GABAPENTIN 100 MG CAPSULE PO SCH (20:27)
[2017-05-11] MEDS: Amoxicill/Clav 875/125mg Tab 1 TAB TAB PO SCH (20:27)
[2017-05-11] MEDS: TAMSULOSIN 0.4 MG CAPSULE PO SCH (20:27)
[2017-05-11] MEDS: ATORVASTATIN 40 MG TABLET PO SCH (20:27)
[2017-05-12] MEDS: HYDROcodone-APAP 5 MG -325 MG TABLET PO PRN (01:39)
[2017-05-12 07:25] VITALS: BP 134/64; RESP 17; TEMP 97.7; O2SAT 91
[2017-05-12] MEDS: FUROSEMIDE 20 MG TABLET PO SCH (07:31)
[2017-05-12] MEDS: Insulin Lispro Flexpen 300 UNIT/3 ML INSULN.PEN SUBCUT SCH (07:42)
[2017-05-12] MEDS: CITALOPRAM 20 MG TABLET PO SCH (08:37)
[2017-05-12] MEDS: Amoxicill/Clav 875/125mg Tab 1 TAB TAB PO SCH (08:39)
[2017-05-12] MEDS: ALLOPURINOL 300 MG TABLET PO SCH (08:39)
[2017-05-12] MEDS: OMEPRAZOLE 20 MG CAPSULE PO SCH (08:39)
[2017-05-12] MEDS: CHOLECALCIFEROL 1000 IU TABLET PO SCH (08:40)
[2017-05-12] MEDS: ASPIRIN 81 MG (BABY) CHEWABLE TABLET PO SCH (08:40)
[2017-05-12] MEDS: POTASSIUM CHLORIDE 20 MEQ TAB PO SCH (08:40)
[2017-05-12] MEDS: METOPROLOL SUCCINATE 25 MG SR 24H TABLET PO SCH (08:40)
[2017-05-12] MEDS: BETAMET DIPROP TOPICAL SCH (08:56)
[2017-05-12] MEDS: CLOTRIMAZOLE TOPICAL SCH (08:56)
--- NOTE | 2017-05-12 21:25 | DCSUMMARY ---
Hospitalization Summary Admit Date: 05/09/17 Discharge Date: 05/12/17 Primary Diagnosis:: acute sigmoid diverticulitis Hospital Course: Yemi is a 62-year-old male with several medical issues including coronary artery disease and diabetes. He presented with abdominal pain and was found to have an acute sigmoid diverticulitis. He was admitted, placed on IV Invanz, given gut rest, and recovered over the last few days. His diet was slowly advanced to clear liquids and then to regular diet and he tolerated this well. He stated to me that his pain had reduced during the hospital stay. He stated to me that he had a remote history of a colonoscopy was told he had polyps but this was over 10 years ago. I do not have a record of that procedure in the hospital record. The patient's other medical problems remained stable through the hospital stay. We were able to arrange follow-ups with surgery and with primary care physician for reevaluation of medical issues and diverticular disease. I sent the patient home on Augmentin. There is recent data now suggesting that in rare circumstances, fluoroquinolones are now associated with bowel perforation. Today, the patient states his abdominal pain is significantly improved even over yesterday. He feels it's significantly less than half of what it was when he first came into the hospital. No chest pain and no shortness breath. The patient has a cardiac appointment follow-up today and we discharged him prior to that. Assessment and Plan: 1. As per discharge assessments noted 2. Disposition: Patient is discharged home. 3. Condition on discharge, stable and improved. 4. Diet: regular diet 5. Activities: resume normal activities 6. Follow-Up: 1. Dr. Cruz one week, to review hypertension, diabetes, and other medical issues 2. Dr. Gunn in 10 days to reevaluate diverticulitis, extensive therapy if necessary, and arrange colonoscopy done in about 6-8 weeks. 7. Medications at the Time of Discharge: Home Medications Medication Instructions Recorded Confirmed Type Aspirin 81 mg PO DAILY tab 04/05/16 05/09/17 History Albuterol Neb Soln 0.083% 1 ea INH Q3-4H PRN #1 box 01/30/17 05/09/17 History Albuterol Sulfate [Proair Hfa] 1 - 2 puff INH Q4-6H #3 inhaler 01/30/17 Rx Allopurinol 1 tab PO QD #90 tab 01/30/17 05/09/17 Rx Cholecalciferol (Vitamin D3) 2,000 unit PO DAILY #90 cap 01/30/17 05/09/17 Rx [Vitamin D3] Citalopram Hydrobromide [Celexa] 1 tab PO DAILY #90 tab 01/30/17 05/09/17 Rx Furosemide [Lasix] 1 tab PO DAILY #90 tab 01/30/17 05/09/17 Rx Gabapentin 1 - 2 cap PO QHS #180 cap 01/30/17 05/09/17 Rx Insulin Aspart [Novolog Flexpen] 7 unit SUBCUT AC #2 unit 01/30/17 05/09/17 Rx Insulin Detemir [Levemir Flextouch] 40 unit SQ DAILY #1 box 01/30/17 05/09/17 Rx [place]-3/Dha/Epa/Fish Oil [Fish Oil 1,000 mg PO QD cap 01/30/17 05/09/17 History 1,000 mg Softgel] Omeprazole 1 cap PO DAILY #90 cap 01/30/17 05/09/17 Rx Tamsulosin HCl 1 cap PO QHS #90 cap 01/30/17 05/09/17 Rx Blood Sugar Diagnostic [Truetrack 1 ea IN ACHS #100 strip 02/12/17 05/09/17 Rx Test Strip] Pen Needle, Diabetic [Trueplus Pen 1 ea QID #120 ea 02/12/17 05/09/17 Rx Needle] Potassium Chloride 1 tab PO DAILY tab 03/26/17 05/09/17 History Clotrimazole/Betamet Diprop 1 ml TOPICAL BID #1 bottle 04/10/17 Clinic [Clotrimazole-Betamethasone Lot] atorvastatin 40 mg tablet 40 mg PO QHS #90 tab 04/30/17 05/09/17 Rx hydrocodone 7.5 mg-acetaminophen 1 tab PO Q4H PRN #90 tab 04/30/17 05/09/17 Rx 325 mg tablet metoprolol succinate ER 25 mg 25 mg PO DAILY #90 tab 04/30/17 05/09/17 Rx tablet,extended release 24 hr Amoxicill/Clav 875/125mg 1 tab PO BID #20 tab 05/12/17 Rx [Augmentin 875/125mg] HYDROcodone/APAP 5/325 Tab [[place] 1 tab PO Q6H PRN #20 tab 05/12/17 Rx 5/325 Tab] 8. Time, care, counseling and coordination of care for this discharge is less than 30 minutes. Exam - Vitals Vital Signs: Vital Signs Temperature 97.7 F Temperature Source Oral Pulse Rate [Pulse Oximeter] 57 Pulse Rate 61 Respiratory Rate 17 Blood Pressure [Right Arm] 134/64 Blood Pressure [Left Arm] 117/55 Blood Pressure 123/34 Pulse Ox 91 Oxygen Flow Rate 2.5 Oxygen Delivery Method Nasal Cannula Height 6 ft Weight 356 lb 6.4 oz - General General Appearance: No Acute Distress, Cooperative - Eye Eye Exam: POSITIVE: No Scleral Icterus - ENT ENT Exam: POSITIVE: Mucous Membranes Moist - Respiratory Respiratory Exam: POSITIVE: Clear to Auscultation - Bilaterally, Breathing Non Labored - Cardiovascular Cardiovascular Exam: POSITIVE: RRR, No Murmur, No Clicks, No Gallops, No Rubs, No JVD - GI/Abdominal GI/Abdominal Exam: POSITIVE: Normal Bowel Sounds, Non Tender, Non Distended, Soft Additional GI/Abdominal Exam Details: I cannot elicit tenderness with palpation of the patient's abdomen. - Extremities Extremities Exam: POSITIVE: No Clubbing Present, No Edema Present, No Cyanosis Present Additional Extremities Exam Details: I do not notice trace edema today. - Neurological Neurological Exam: POSITIVE: Alert, Oriented x 3, No Facial Droop, Speech Intact / Clear, Moves All Extremities Equally - Psychiatric Psychiatric Exam: POSITIVE: Normal Affect, Normal Mood Data Perinent Studies: Laboratory Results 05/09/17 05/09/17 05/09/17 Range/Units 10:45 10:45 10:45 WBC 11.42 H (4.8-10.8) 10^3/uL RBC 5.06 (4.70-6.10) 10^6/uL Hgb 11.9 L (14.0-18.0) g/dL Hct 37.5 L (42.0-52.0) % MCV 74.1 L (80-90) FL MCH 23.5 L (27-31) PG MCHC 31.7 L (33-37) g/dL RDW Std Deviation 53.1 H (39-50) fL RDW Coeff of [place] 20.1 H (11.5-14.5) % Plt Count 226 (140-350) 10*3/uL MPV 10.9 (7.4-12.2) FL Immature Gran % (Auto) 0.5 (0-5) % Neut % (Auto) 74.4 (50-80) % Lymph % (Auto) 11.4 (10-50) % [place] % (Auto) 12.3 (5-15) % Eos % (Auto) 1.0 (0-8) % Baso % (Auto) 0.4 (0-1) % Immature Gran # (Auto) 0.06 10*3/UL Neut # (Auto) 8.50 10*3/UL Lymph # (Auto) 1.30 10*3/uL [place] # (Auto) 1.41 H (0.3-0.8) 10*3/UL Eos # (Auto) 0.11 10*3/UL Baso # (Auto) 0.04 10*3/UL WBC Morphology Comment Normal morphology (NORM) Plt Morphology Comment Normal morphology (NORM) RBC Morph Comment Normal morphology (NORM) Sodium 138 (135-145) meq/L Potassium 4.0 (3.8-5.2) meq/L Chloride 101 (98-112) meq/L Carbon Dioxide 25 (23-33) meq/L Anion Gap 12 (5-20) BUN 23 H (7-22) mg/dL Creatinine 0.9 (0.70-1.50) mg/dL Estimated GFR > 60 (>60 ml/min/1.73m(2)) BUN/Creatinine Ratio 25.55 H (6-20) Glucose 102 (78-110) mg/dL Calculated Osmolality 289.0 (267-292) mOsm/kg Lactic Acid (0.70-2.10) MMOL/L Calcium 9.7 (8.7-10.7) mg/dL Total Bilirubin 0.9 (0.3-1.2) mg/dL AST 20 L (21-57) IU/L ALT 31 (21-72) IU/L Alkaline Phosphatase 98 (38-126) IU/L C-Reactive Protein 7.7 H (0.0-0.9) mg/dL Total Protein 7.4 (6.1-8.0) g/dL Albumin 4.1 (3.5-4.8) g/dL Globulin 3.3 (2.50-4.10) g/dL Albumin/Globulin Ratio 1.20 L (1.3-2.0) mg/g Amylase < 30 L (30-110) U/L Lipase 53 (23-300) IU/L Ur Collection Type Clean catch urine Urine Color Yellow (Y) Urine Clarity Clear (CLEAR) Urine pH 6.5 (5.0-8.5) Ur Specific [place] 1.010 (1.005-1.030) Urine Protein 30 A (NEG) mg/dl Urine Glucose (UA) Negative (NEG) mg/dL Urine Ketones Negative (NEG) Urine Occult Blood Small H (NEG) Urine Nitrate Negative (NEG) Urine Bilirubin Negative (NEG) Urine Urobilinogen 0.2 (0.2) EU/dL Ur Leukocyte Esterase Negative (NEG) Urine RBC 0-3 (NONE) /hpf Urine WBC None (NONE) Ur Squamous Epith Cells Rare (NONE) Ur Renal Epithelial Cell None (NONE) Urine Crystals None Urine Bacteria None (NONE) Urine Casts None (NONE) Urine Mucus None (NONE) Urine Trichomonas None (NONE) Urine Yeast None (NONE) Ur Culture Indicated? Culture not set 05/09/17 05/10/17 05/10/17 Range/Units 15:06 04:35 04:35 WBC 7.29 (4.8-10.8) 10^3/uL RBC 4.46 L (4.70-6.10) 10^6/uL Hgb 10.3 L (14.0-18.0) g/dL Hct 34.0 L (42.0-52.0) % MCV 76.2 L (80-90) FL MCH 23.1 L (27-31) PG MCHC 30.3 L (33-37) g/dL RDW Std Deviation 54.0 H (39-50) fL RDW Coeff of [place] 20.0 H (11.5-14.5) % Plt Count 171 (140-350) 10*3/uL MPV 11.7 (7.4-12.2) FL Immature Gran % (Auto) 0.5 (0-5) % Neut % (Auto) 68.9 (50-80) % Lymph % (Auto) 14.7 (10-50) % [place] % (Auto) 11.9 (5-15) % Eos % (Auto) 3.6 (0-8) % Baso % (Auto) 0.4 (0-1) % Immature Gran # (Auto) 0.04 10*3/UL Neut # (Auto) 5.02 10*3/UL Lymph # (Auto) 1.07 10*3/uL [place] # (Auto) 0.87 H (0.3-0.8) 10*3/UL Eos # (Auto) 0.26 10*3/UL Baso # (Auto) 0.03 10*3/UL WBC Morphology Comment Normal morphology (NORM) Plt Morphology Comment Normal morphology (NORM) RBC Morph Comment Normal morphology (NORM) Sodium 138 (135-145) meq/L Potassium 3.9 (3.8-5.2) meq/L Chloride 104 (98-112) meq/L Carbon Dioxide 24 (23-33) meq/L Anion Gap 10 (5-20) BUN 24 H (7-22) mg/dL Creatinine 1.0 (0.70-1.50) mg/dL Estimated GFR > 60 (>60 ml/min/1.73m(2)) BUN/Creatinine Ratio 24.00 H (6-20) Glucose 97 (78-110) mg/dL Calculated Osmolality 289.0 (267-292) mOsm/kg Lactic Acid 0.8 (0.70-2.10) MMOL/L Calcium 9.1 (8.7-10.7) mg/dL Total Bilirubin 0.7 (0.3-1.2) mg/dL AST 17 L (21-57) IU/L ALT 31 (21-72) IU/L Alkaline Phosphatase 76 (38-126) IU/L C-Reactive Protein (0.0-0.9) mg/dL Total Protein 6.3 (6.1-8.0) g/dL Albumin 3.3 L (3.5-4.8) g/dL Globulin 3.0 (2.50-4.10) g/dL Albumin/Globulin Ratio 1.10 L (1.3-2.0) mg/g Amylase 31 (30-110) U/L Lipase 33 (23-300) IU/L Ur Collection Type Urine Color (Y) Urine Clarity (CLEAR) Urine pH (5.0-8.5) Ur Specific [place] (1.005-1.030) Urine Protein (NEG) mg/dl Urine Glucose (UA) (NEG) mg/dL Urine Ketones (NEG) Urine Occult Blood (NEG) Urine Nitrate (NEG) Urine Bilirubin (NEG) Urine Urobilinogen (0.2) EU/dL Ur Leukocyte Esterase (NEG) Urine RBC (NONE) /hpf Urine WBC (NONE) Ur Squamous Epith Cells (NONE) Ur Renal Epithelial Cell (NONE) Urine Crystals Urine Bacteria (NONE) Urine Casts (NONE) Urine Mucus (NONE) Urine Trichomonas (NONE) Urine Yeast (NONE) Ur Culture Indicated? 05/11/17 05/11/17 Range/Units 04:20 04:20 WBC 6.43 (4.8-10.8) 10^3/uL RBC 4.51 L (4.70-6.10) 10^6/uL Hgb 10.4 L (14.0-18.0) g/dL Hct 34.2 L (42.0-52.0) % MCV 75.8 L (80-90) FL MCH 23.1 L (27-31) PG MCHC 30.4 L (33-37) g/dL RDW Std Deviation 52.6 H (39-50) fL RDW Coeff of [place] 19.4 H (11.5-14.5) % Plt Count 166 (140-350) 10*3/uL MPV 11.5 (7.4-12.2) FL Immature Gran % (Auto) 0.6 (0-5) % Neut % (Auto) 68.0 (50-80) % Lymph % (Auto) 15.1 (10-50) % [place] % (Auto) 12.1 (5-15) % Eos % (Auto) 3.7 (0-8) % Baso % (Auto) 0.5 (0-1) % Immature Gran # (Auto) 0.04 10*3/UL Neut # (Auto) 4.37 10*3/UL Lymph # (Auto) 0.97 10*3/uL [place] # (Auto) 0.78 (0.3-0.8) 10*3/UL Eos # (Auto) 0.24 10*3/UL Baso # (Auto) 0.03 10*3/UL WBC Morphology Comment Normal morphology (NORM) Plt Morphology Comment Normal morphology (NORM) RBC Morph Comment Normal morphology (NORM) Sodium 137 (135-145) meq/L Potassium 4.3 (3.8-5.2) meq/L Chloride 102 (98-112) meq/L Carbon Dioxide 24 (23-33) meq/L Anion Gap 11 (5-20) BUN 24 H (7-22) mg/dL Creatinine 1.0 (0.70-1.50) mg/dL Estimated GFR > 60 (>60 ml/min/1.73m(2)) BUN/Creatinine Ratio 24.00 H (6-20) Glucose 115 H (78-110) mg/dL Calculated Osmolality 288.0 (267-292) mOsm/kg Lactic Acid (0.70-2.10) MMOL/L Calcium 9.1 (8.7-10.7) mg/dL Total Bilirubin 0.5 (0.3-1.2) mg/dL AST 16 L (21-57) IU/L ALT 30 (21-72) IU/L Alkaline Phosphatase 81 (38-126) IU/L C-Reactive Protein (0.0-0.9) mg/dL Total Protein 6.4 (6.1-8.0) g/dL Albumin 3.4 L (3.5-4.8) g/dL Globulin 3.0 (2.50-4.10) g/dL Albumin/Globulin Ratio 1.10 L (1.3-2.0) mg/g Amylase (30-110) U/L Lipase (23-300) IU/L Ur Collection Type Urine Color (Y) Urine Clarity (CLEAR) Urine pH (5.0-8.5) Ur Specific [place] (1.005-1.030) Urine Protein (NEG) mg/dl Urine Glucose (UA) (NEG) mg/dL Urine Ketones (NEG) Urine Occult Blood (NEG) Urine Nitrate (NEG) Urine Bilirubin (NEG) Urine Urobilinogen (0.2) EU/dL Ur Leukocyte Esterase (NEG) Urine RBC (NONE) /hpf Urine WBC (NONE) Ur Squamous Epith Cells (NONE) Ur Renal Epithelial Cell (NONE) Urine Crystals Urine Bacteria (NONE) Urine Casts (NONE) Urine Mucus (NONE) Urine Trichomonas (NONE) Urine Yeast (NONE) Ur Culture Indicated? Diagnostic Data: I am placing a copy of the CT scan report here for the convenience of the providers/physicians that we'll see this patient in the clinic. [address] [facility] [place] [address] PH: [phone] FAX: [phone] ~DIAGNOSTIC IMAGING REPORT~ Patient: YEMI CASTANEDA : 1955 Sex: M Age: 62 Exam Name: CT Abdomen/Pelvis W Contrast Exam Date: 05/09/17 Report # : [id number] CPT Code: 99113 EMR/MR #: [id number] Ordering: LAURIE BRAVO Admiting: Primary: Hood Cruz MD Attending: Signed CT Abdomen/Pelvis W Contrast,05/09/2017 10:27 AM: Clinical History: Abdominal pain Previous Exam: None at this facility. Findings: Multiple helically acquired CT images are obtained through the abdomen and pelvis following intravenous demonstration of 90 cc of Isovue 300, and demonstrate clear lung bases. The liver, spleen, pancreas, adrenals and gallbladder are unremarkable. The left kidney is normal. There is a 3.2 cm simple cyst noted in the inferior portion of the right kidney. There are multiple colonic diverticula with an inflamed diverticulum involving the sigmoid colon with pericolonic fat stranding. There is no free air nor free fluid. There is no evidence of abscess. Diffuse mild degenerative changes are noted of the lumbar spine and visualized portions of the thoracic spine. Impression: Acute sigmoid diverticulitis without evidence of abscess nor perforation. Dictated By: 05/09/17 1244 MIKEY DIEHL MD. Signed By: 05/09/17 1255 MIKEY DIEHL MD. Patient Problems - Patient Problem List (1) Diverticulitis Status: Acute Code(s): K57.92 - Diverticulitis of intestine, part unspecified , without perforation or abscess without bleeding Qualifiers: Diverticulitis site: large intestine Diverticulitis bleeding: without bleeding Diverticulitis complication: without perforation or abscess Qualified Code(s): K57.32 - Diverticulitis of large intestine without perforation or abscess without bleeding Category: Medical (2) Type 2 diabetes mellitus with complication, with long-term current use of insulin Status: Acute Onset Date: 10/02/16 Code(s): E11.8 - Type 2 diabetes mellitus with unspecified complications; 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 Category: Medical (3) Coronary artery disease involving nikolai coronary artery of nikolai heart without angina pectoris Status: Chronic Onset Date: 10/02/16 Code(s): I25.10 - Atherosclerotic heart disease of nikolai coronary artery without angina pectoris Category: Medical (4) Asthma Status: Chronic Code(s): J45.909 - Unspecified asthma, uncomplicated Category: Medical (5) Obesity Status: Acute Code(s): E66.9 - Obesity, unspecified Qualifiers: Obesity type: due to excess calories Obesity classification: adult class 3 (BMI >= 40) Serious obesity comorbidity presence: with serious comorbidity Body mass index: BMI 45.0-49.9 Qualified Code(s): E66.09 - Other obesity due to excess calories; Z68.42 - Body mass index (BMI) 45.0-49.9, adult Category: Medical (6) Hypertension Status: Chronic Code(s): I10 - Essential (primary) hypertension Qualifiers: Hypertension type: essential hypertension Qualified Code(s): I10 - Essential (primary) hypertension Category: Medical
== END 2017-05-12 09:22 | disposition home or self-care (01) | DRG 392 ==
LOC: ER 10:12 → MED/SURG 13:21
PROVIDERS: ADMIT Internal Medicine; ATTEND Internal Medicine

== ENCOUNTER 2019-06-02 17:55 | Observation (INO) ==
[2019-06-02 18:38] LABS: BLOOD UREA NITROGEN 18 mg/dL (7-22); BUN/CREATININE RATIO 16.36 (6-20); SERUM ALBUMIN 4.1 g/dL (3.5-4.8)
[2019-06-02 18:49] LABS: Hematocrit [HCT] 43.9 % (42.0-52.0); Hemoglobin [HGB] 14.1 g/dL (14.0-18.0); MEAN CORPUSCULAR HGB CONC 32.1 g/dL (33-37); MEAN CORPUSCULAR VOLUME 86.1 FL (80-90)
[2019-06-02 18:50] LABS: BASOPHILS # (AUTO) 0.04 10*3/UL; BASOPHILS % (AUTO) 0.4 % (0-1); EOSINOPHILS # (AUTO) 0.24 10*3/UL; EOSINOPHILS % (AUTO) 2.6 % (0-8); LYMPHOCYTES # (AUTO) 2.34 10*3/uL; MEAN PLATELET VOLUME 10.6 FL (7.4-12.2); MONOCYTES # (AUTO) 0.65 10*3/UL (0.3-0.8); NEUTROPHILS # (AUTO) 5.88 10*3/UL; NEUTROPHILS % (AUTO) 63.6 % (50-80)
[2019-06-02 18:51] LABS: PLATELET MORPHOLOGY COMMENT NORMAL MORPHOLOGY (NORM); RBC MORPHOLOGY COMMENT NORMAL MORPHOLOGY (NORM); WBC MORPHOLOGY COMMENT NORMAL MORPHOLOGY (NORM)
[2019-06-02] MEDS ORDERED: HYDROcodone-APAP 5 MG -325 MG TABLET PO PRN (20:12)
[2019-06-02] MEDS ORDERED: Insulin Sliding Scale Protocol SUBCUT PRN (20:12)
[2019-06-02] MEDS ORDERED: Glucagon Inj Vial 1 MG/ML VIAL IM PRN (20:12)
[2019-06-02] MEDS ORDERED: NITROGLYCERIN 0.4 MG SL TAB (BOTTLE OF 3) SL PRN (20:12)
[2019-06-02] MEDS ORDERED: LIDOCAINE W/ SODIUM BICARB 0.5 ML SYR SUBD PRN (20:12)
[2019-06-02] MEDS ORDERED: CALCIUM CARBONATE 500 MG (TUMS) CHEWABLE TABLET PO PRN (20:12)
[2019-06-02] MEDS ORDERED: DEXTROSE 50%-WATER SYRINGE 50 ML SYRINGE IVP PRN (20:12)
[2019-06-02] MEDS ORDERED: DEXTROSE 31 GM GEL PO PRN (20:12)
[2019-06-02] MEDS ORDERED: ALBUTEROL SULFATE 2.5 MG/3 ML NEB PRN (20:12)
[2019-06-02] MEDS ORDERED: GABAPENTIN 100 MG CAPSULE PO SCH (21:00)
[2019-06-02] MEDS ORDERED: TAMSULOSIN 0.4 MG CAPSULE PO SCH (21:00)
[2019-06-02] MEDS ORDERED: Insulin Glargine SoloStar Inj 100 UNIT/ML INSULN.PEN SUBCUT SCH (21:00)
[2019-06-02] MEDS ORDERED: ATORVASTATIN 40 MG TABLET PO SCH (21:00)
[2019-06-02] MEDS: CLOTRIMAZOLE TOPICAL SCH (21:42)
[2019-06-02] MEDS: BETAMETHASONE DIP TOPICAL SCH (21:42)
[2019-06-02] MEDS: CLOTRIMAZOLE 28.35 GM CREAM TOPICAL SCH (21:52)
[2019-06-03] MEDS ORDERED: LEVOTHYROXINE 50 MCG TABLET PO SCH (05:30)
[2019-06-03 06:14] LABS: CHOL/HDL RATIO 3.76 RATIO (0-4.0)
[2019-06-03] MEDS: Insulin Lispro Flexpen 300 UNIT/3 ML INSULN.PEN SUBCUT SCH ×4 (06:45→11:51)
[2019-06-03 08:24] VITALS: RESP 20
[2019-06-03] MEDS ORDERED: CITALOPRAM 20 MG TABLET PO SCH (09:00)
[2019-06-03] MEDS ORDERED: LIXISENATIDE SUBCUT SCH ×2 (09:00→21:00)
[2019-06-03] MEDS ORDERED: POTASSIUM CHLORIDE 20 MEQ TAB PO SCH (09:00)
[2019-06-03] MEDS ORDERED: INSULIN GLARGINE SUBCUT SCH ×2 (09:00→21:00)
[2019-06-03] MEDS ORDERED: ASPIRIN 81 MG (BABY) CHEWABLE TABLET PO SCH ×2 (09:00)
[2019-06-03] MEDS ORDERED: ALLOPURINOL 300 MG TABLET PO SCH (09:00)
[2019-06-03] MEDS ORDERED: CHOLECALCIFEROL 1000 IU TABLET PO SCH (09:00)
[2019-06-03] MEDS ORDERED: FUROSEMIDE 20 MG TABLET PO SCH (09:00)
[2019-06-03] MEDS ORDERED: METOPROLOL SUCCINATE 25 MG SR 24H TABLET PO SCH (09:00)
[2019-06-03] MEDS: PANTOPRAZOLE IV 40 MG VIAL IVP SCH ×2 (09:43→09:46)
[2019-06-03] MEDS: CLOTRIMAZOLE TOPICAL SCH (10:06)
[2019-06-03] MEDS: BETAMETHASONE DIP TOPICAL SCH (10:06)
[2019-06-03] MEDS: CLOTRIMAZOLE 28.35 GM CREAM TOPICAL SCH (10:07)
[2019-06-03 11:58] VITALS: BP 146/57; TEMP 97.2; O2SAT 95
== END 2019-06-03 15:01 | disposition home or self-care (01) ==
LOC: ER 17:55 → INTOOBSV 19:44 → MED/SURG 19:44
PROVIDERS: ADMIT Family Medicine; ATTEND Family Medicine